=== PATIENT | female | born 1945 | race Caucasian/White ===

== ENCOUNTER → 2022-01-24 11:58 | Outpatient (CLI) | payer MEDICARE, BC, SELFPAY ==
--- NOTE | 2022-01-24 12:01 | DI.RAD.S_ITS ---
PROCEDURE: XR CERVICAL SPINE 2V OR 3V INDICATIONS: neck pain TECHNIQUE: 3 view(s) of the cervical spine were acquired. COMPARISON: None. FINDINGS: Bones: No fractures or dislocations to the C7-T1 level. The lateral masses of C1 appear intact on the odontoid view. No suspicious bony lesions. 4 millimeters anterolisthesis C7 on T1. 2 millimeters retrolisthesis C5 on C6. 2 millimeters anterolisthesis C4 on C5 Likely degenerative. Moderate disc height loss and endplate spurring, multilevel facet degenerative changes also demonstrated. Soft tissues: No prevertebral soft tissue swelling. 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 Dictated by: Roberth Frank M.D. on 01/24/2022 at 20:51 Approved by: Roberth Frank M.D. on 01/24/2022 at 20:58
== END ==
PROVIDERS: PCP Family Medicine; Referring Provider Family Medicine; Visit Provider Family Medicine
DX: S16.1XXA Strain of muscle, fascia and tendon at neck level, initial encounter (principal); M47.812 Spondylosis without myelopathy or radiculopathy, cervical region; X58.XXXA Exposure to other specified factors, initial encounter
CPT/HCPCS: 72040

== ENCOUNTER → 2022-05-04 07:50 | Outpatient (CLI) | payer MEDICARE, BC, SELFPAY ==
[2022-05-04 10:03] LABS: Add Manual Diff / Slide Review NO; Basophils Absolute Auto 100 /uL (0-100); Eosinophils Absolute Auto 100 /uL (0-450); Eosinophils Percent Auto 2.9 % (2-4); Hematocrit 39.8 % (36-46); Hemoglobin 13.3 g/dL (12.0-16.0); Lymphocytes Absolute Auto 1900 /uL (1100-4500); Lymphocytes Percent Auto 37.6 % (25-40); Mean Corpuscular HGB Conc 33.5 % (30-36); Mean Corpuscular Hemoglobin 32.7 PG (26-34); Mean Corpuscular Volume 97.8 fL (80-100); Monocytes Absolute Auto 600 /uL (0-900); Monocytes Percent Auto 12.3 % (3-14); Neutrophils Absolute Auto 2400 /uL (1500-7000); Neutrophils Percent Auto 46.2 % (50-75); Platelet Count 342 X10^3/uL (150-400); Red Blood Cell Count 4.08 X10^6/uL (4.0-5.2); Red Cell Distribution Width 12.6 % (11.6-14.8); White Blood Cell Count 5.1 X10^3/uL (4.5-11.0)
[2022-05-04 10:10] LABS: Alanine Aminotransferase 20 IU/L (<35); Albumin 4.5 g/dL (3.5-5.0); Albumin Globulin Ratio 1.6 (1.0-2.8); Alkaline Phosphatase 84 U/L (38-126); Aspartate Aminotransferase 27 IU/L (14-36); BUN Creatinine Ratio 18.1 (6-22); Bilirubin Total 0.2 mg/dL (0.2-1.3); Blood Urea Nitrogen 15 mg/dL (7-17); Calcium 9.4 mg/dL (8.4-10.2); Carbon Dioxide 28 mmol/L (22-32); Chloride 103 mmol/L (98-107); Cholesterol 216 mg/dL (140-199); Estimated Glomerular Filt Rate > 60 mL/min (>60); Globulin 2.9 g/dL (1.7-4.1); Glucose 88 mg/dL (80-110); HDL Cholesterol 74 mg/dL (40-60); HEMOLYSIS < 15 (0-50); LDL Cholesterol Calculated 76 mg/dL (<100); Magnesium 1.8 mg/dL (1.6-2.3); Potassium 4.8 mmol/L (3.4-5.1); Sodium 138 mmol/L (137-145); Total Protein 7.4 g/dL (6.3-8.2); Triglycerides 330 mg/dL (35-150)
[2022-05-04 10:38] LABS: TSH w/ Reflex to FT4 1.59 uIU/mL (0.47-4.68)
== END ==
PROVIDERS: PCP Family Medicine; Referring Provider Family Medicine; Visit Provider Family Medicine
DX: E78.5 Hyperlipidemia, unspecified (principal); I10 Essential (primary) hypertension
CPT/HCPCS: 36415; 80053; 80061; 83735; 84443; 85025

== ENCOUNTER 2022-09-28 07:28 | Day surgery (SDC) | payer MEDICARE, BC, SELFPAY ==
--- NOTE | 2022-09-28 | PATH_ITS ---
[facility] Accession Number: [id number] No. of containers..01 Tissue . 01 Material submitted: . colon - TRANSVERSE COLON POLYP . 01 Diagnosis: Transverse Colon Polyp, Biopsy: Tubular adenoma. MRV 10/02/2022 1321 Local . 01 Electronically signed: . Aarti Condon MD, Pathologist NPI- [id number] . 01 Gross description: . TRANSVERSE COLON POLYP: Received in formalin is 1 fragment(s) of tarango, soft tissue measuring 0.3 x 0.3 x 0.2 cm submitted entirely in 1 cassette(s) /CPE 09/29/2022 0917 Local . 01 Pathologist provided ICD-10: D12.3 . 01 CPT . 252110 Specimen Comment: A courtesy copy of this report has been sent to [facility] Pathology Performed at: 01 [facility] [address] [place] [address] [id number] MD Matt Griffin MD Phone: [phone]
[2022-09-28 07:49] VITALS: BP 147/81; PULSE 62; RESP 19; TEMP 36.2; O2SAT 99; BMI 27.4
--- NOTE | 2022-09-28 09:00 | P.HP_ITS ---
History of Present Illness History of Present Illness Date Patient Seen: 09/28/22 Time Patient Seen: 09:00 Chief complaint: [facility] – [place] Narrative: Mr. Chen presents today for a colonoscopy. Her grandmother from colon cancer at age 74. She recently moved from [facility] where she had her previous colonoscopy about 5 years ago and polyps were seen. Otherwise the prep has gone well she has no other concerning symptoms and no questions [facility] Medical History Anxiety Cervical strain Colon polyps Epilepsy History of breast cancer Hyperlipidemia Hypertension Spondylolysis of cervical spine Surgical History H/O aortic valve replacement History of breast reconstruction Social History household members: spouse Smoking Status: Former smoker Meds Home Medications and Allergies Home Medications Medication Instructions Recorded Confirmed Type levetiracetam 500 mg tablet 500 mg PO BID 01/19/22 04/19/22 History (Ophelia) methocarbamol 500 mg tablet 500 mg PO TID PRN muscle spasm #20 01/19/22 04/19/22 Rx tabs naproxen 500 mg tablet 500 mg PO BID #30 tabs 01/19/22 09/28/22 Rx atorvastatin 20 mg tablet See Rx Instructions .Route 02/04/22 09/28/22 Rx .COMPLEX #90 tabs sodium,potassium,mag sulfates 17.5 See Rx Instructions PO .COMPLEX 07/09/22 Rx gram-3.13 gram-1.6 gram oral soln #354 mL (Suprep Bowel Prep Kit) amoxicillin 500 mg-potassium 1 tab PO BID #60 tabs 08/22/22 09/28/22 Rx clavulanate 125 mg tablet metoprolol tartrate 25 mg tablet 12.5 mg PO BID #60 tabs 09/03/22 Rx Allergies Allergy/AdvReac Type Severity Reaction Status Date / Time No Known Drug Allergies Allergy Verified 04/19/22 14:10 Exam Vital Signs (past 8 hours): - 09/28/22 07:49 Temperature 97.1 F L Pulse Rate 62 Respiratory Rate 19 Blood Pressure 147/81 H Pulse Oximetry 99 Oxygen Delivery Method Room Air Oxygen Delivery Method Room Air Const General: cooperative, healthy appearing and comfortable Eyes General: appearance normal, both eyes and all related structures Resp Effort & Inspection: normal respiratory effort and able to speak in complete sentences GI Palpation: soft and No tender Assessment & Plan Assessment and plan (1) Colon polyps: Qualifiers: Colon polyp type: unspecified Colon location: unspecified part of colon Qualified Code(s): K63.5 - Polyp of colon Status: Acute (2) Family history of colon cancer: Status: Acute (3) Screening for colon cancer: Status: Acute Assessment & Plan narrative: Presents today for screening colonoscopy I discussed the risks benefits and alternatives including but not limited to perforation of the colon and an incomplete exam she fully understands these risks and would like to proceed.
[2022-09-28 10:03] VITALS: BP 97/63; PULSE 60; RESP 14; TEMP 36.1; O2SAT 96
--- NOTE | 2022-09-28 10:03 | PM.OP.COLON ---
Operative Date/Time/Diagnoses Date of procedure: 09/28/22 Time of procedure: 10:03 Pre-op diagnosis: Family history of colon cancer, history of polyps, and screening for colon cancer Post-op diagnosis: same Procedure & Clinicians Study performed: Colonoscopy and biopsy Same procedure as scheduled: Yes Indications: Family history of colon cancer, history of polyps, screening for colon cancer Surgeon: Kerry Nieto Procedure Notes Procedure in detail: Patient was taken to the endoscopy suite and placed in left lateral decubitus position. Time-out was performed. With the help of anesthesiologist the patient was placed under conscious sedation and maintained throughout the procedure. Digital rectal exam was performed there were no masses or strictures. The colonoscope was then introduced into the anal canal and advanced through to the cecum. Abdominal pressure was required to reach the cecum. A photograph was obtained of the appendiceal orifice. The bowel prep was good [place] bowel prep score of 2. The total withdrawal time was 25 minutes. Three separate polypectomies were performed using biopsy forceps. Each polyp was small. One was seen in the cecal area 1 in the hepatic flexure and 1 in the descending colon. There were a few scattered diverticula in the sigmoid colon photographs were taken of this. The scope was then retroflexed and hemorrhoidal piles were observed. They were within normal limits. Patient tolerated the procedure well and went in good condition to postoperative care unit Findings: divertiulosis and polyp(s) Specimen(s): other (1. Cecal polyp 2. Hepatic flexure polyp 3. Descending polyp) Complications: none Post-procedure Plan for aftercare: Depending on the pathology of the 3 polyps follow-up will be recommended. If all 3 turn machine operator to be tubular adenomas then 3-5 year follow-up would be standard.
--- NOTE | 2022-09-28 10:07 | P.OP.COLON_ITS ---
Operative Date/Time/Diagnoses Date of procedure: 09/28/22 Time of procedure: 10:07 Procedure & Clinicians Indications: CORRECTION Procedure Notes Procedure in detail: Operative Date/Time/Diagnoses Date of procedure: 09/28/22 Time of procedure: 10:03 Pre-op diagnosis: Family history of colon cancer, history of polyps, and screening for colon cancer Post-op diagnosis: same Procedure & Clinicians Study performed: Colonoscopy and biopsy Same procedure as scheduled: Yes Indications: Family history of colon cancer, history of polyps, screening for colon cancer Surgeon: Kerry Nieto Procedure Notes Procedure in detail: Patient was taken to the endoscopy suite and placed in left lateral decubitus position.? Time-out was performed.? With the help of anesthesiologist the patient was placed under conscious sedation and maintained throughout the procedure.? Digital rectal exam was performed there were no masses or strict ures.? The colonoscope was then introduced into the anal canal and advanced through to the cecum.? Abdominal pressure was required to reach the cecum.? A photograph was obtained of the appendiceal orifice.? The bowel prep was good [place] bowel prep score of 2.??The withdrawal time was 27 minutes. One small polyp was seen and removed with the biopsy forceps in the transverse colon. There were a few scattered diverticula in the sigmoid colon. A photograph was obtained of a few diverticula. The scope was withdrawn into the rectum and retroflexed. The hemorrhoidal piles appeared within normal limits,photograph was obtained. Patient tolerated the procedure well and went in good condition to the postoperative care unit Findings: divertiulosis and polyp(s) Specimen(s): other (1. Transverse colon polyp) Complications: none Post-procedure Plan for aftercare: Probably looking at a 5 year follow-up because of the family history of colon cancer.
[2022-09-28 10:08] VITALS: BP 101/61; PULSE 59; RESP 12; O2SAT 95
[2022-09-28 10:13] VITALS: BP 113/69; PULSE 60; RESP 12; O2SAT 100
[2022-09-28 10:17] VITALS: BP 121/75; PULSE 60; RESP 13; O2SAT 100
[2022-09-28 10:33] VITALS: BP 130/79; PULSE 60; RESP 13; TEMP 36.6; O2SAT 100
== END 2022-09-28 10:40 | disposition home or self-care (01) ==
PROVIDERS: PCP Family Medicine; Referring Provider Surgery; Visit Provider Surgery
PROC: 0DJD8ZZ Inspection of Lower Intestinal Tract, Via Natural or Artificial Opening Endoscopic (ICD-10-PCS; CPT 45378; principal; 2022-09-28 08:30)
DX: Z12.11 Encounter for screening for malignant neoplasm of colon (principal); Z86.010 Personal history of colon polyps; K57.30 Diverticulosis of large intestine without perforation or abscess without bleeding; D12.3 Benign neoplasm of transverse colon
CPT/HCPCS: 45380; J2704; J3010

== ENCOUNTER 2022-10-24 15:01 | Observation (INO) | payer MEDICARE, BC, SELFPAY ==
[2022-10-24] VITALS (22 sets, daily range): BP systolic 116–166; BP diastolic 62–84; PULSE 60–73; RESP 14–33; TEMP 35.6–36.2; O2SAT 95–100; BMI 25.7
--- NOTE | 2022-10-24 15:08 | DI.CT.S_ITS ---
PROCEDURE: CT STROKE INDICATIONS: left side weak TECHNIQUE: Noncontrast 4.5 mm thick angled axial sections acquired from the foramen magnum to the vertex, with coronal reformats. For radiation dose reduction, the following was used: automated exposure control, adjustment of mA and/or kV according to patient size. COMPARISON: None. FINDINGS: Image quality: Excellent. CSF spaces: Basal cisterns are patent. No extra-axial fluid collections. Ventricles are normal in size and shape. Brain: No midline shift. No intracranial masses or hemorrhage. Ricks-white matter interface is normal. Skull and face: Calvarium and visualized facial bones are intact, without suspicious lesions. Sinuses: Visualized sinuses and mastoids are clear. IMPRESSION: No acute intracranial pathology. This study fulfills neurological imaging criteria for inclusion or exclusion of acute stroke therapies based on available published neurological imaging guidelines. Dictated by: Ranjit Pillai M.D. on 10/24/2022 at 15:44 Approved by: Ranjit Pillai M.D. on 10/24/2022 at 15:46
--- NOTE | 2022-10-24 15:09 | DI.CT.S_ITS ---
PROCEDURE: CT ANGIO HEAD AND NECK INDICATIONS: left side weak TECHNIQUE: After the administration of intravenous contrast, 1 mm thick sections acquired from the aortic arch through the [place]. Post-contrast 4.5 mm thick sections then re-acquired from the foramen magnum to the vertex. 3-dimensional bibykrz-bmuwduqtc-lrcfncoklr (MIP) and/or volume rendering reformats were acquired of the central intracranial vasculature and neck separately. For radiation dose reduction, the following was used: automated exposure control, adjustment of mA and/or kV according to patient size. COMPARISON: None. FINDINGS: Image quality: Excellent. BRAIN: CSF spaces: Ventricles are normal in size and shape. Basal cisterns are patent. No extra-axial fluid collections. Brain: No midline shift. No intracranial bleeds or masses. Ricks-white matter interface appears intact. Skull and face: Calvarium and facial bones appear intact, without suspicious lesions. Orbits appear normal. Sinuses: Sinuses and mastoids are clear. HEAD CT ANGIOGRAPHY: Anterior circulation: Intracranial internal carotid arteries are normal in size and flow. The flow within the paired anterior cerebral arteries is normal and symmetric. The flow within the middle cerebral arteries is normal and symmetric. The anterior communicating artery is seen. No aneurysms are seen. Posterior circulation: Visualized portions of the vertebral arteries demonstrate normal caliber, and join to form a normal appearing basilar artery. Flow within the posterior cerebral arteries is normal and symmetric. No aneurysms are seen. NECK CT ANGIOGRAPHY: Carotid system: The great vessels demonstrate a conventional anatomy as they arise from the aortic arch. The origins of the common carotid arteries appear patent. The common carotid arteries demonstrate normal caliber and courses. The bifurcation regions are both widely patent. The internal carotid arteries demonstrate normal calibers and courses. Posterior circulation: The origins of the vertebral arteries both appear widely patent. The more superior extracranial portions of both vertebral arteries also demonstrate normal courses and calibers. They join to form a normal appearing basilar artery. Soft tissues: Visualized neck soft tissues demonstrate no suspicious abnormalities. Prior aortic arch repair. Mosaic attenuation of the lungs, suggestive of air trapping. Bones: No suspicious bony lesions. Visualized cervical spine appears normally aligned. IMPRESSION: No evidence of the acute ischemic infarct. Any quantitative measurements of stenosis were performed using NASCET criteria. Dictated by: Ranjit Pillai M.D. on 10/24/2022 at 15:47 Approved by: Ranjit Pillai M.D. on 10/24/2022 at 15:51
[2022-10-24 15:25] LABS: Add Manual Diff / Slide Review NO; Basophils Absolute Auto 100 /uL (0-100); Basophils Percent Auto 1.4 % (0-2); Eosinophils Absolute Auto 200 /uL (0-450); Eosinophils Percent Auto 2.6 % (2-4); Hematocrit 35.1 % (36-46); Hemoglobin 12.2 g/dL (12.0-16.0); Lymphocytes Absolute Auto 2900 /uL (1100-4500); Lymphocytes Percent Auto 41.1 % (25-40); Mean Corpuscular HGB Conc 34.8 % (30-36); Mean Corpuscular Hemoglobin 33.3 PG (26-34); Mean Corpuscular Volume 95.8 fL (80-100); Monocytes Absolute Auto 800 /uL (0-900); Monocytes Percent Auto 11.3 % (3-14); Neutrophils Absolute Auto 3100 /uL (1500-7000); Neutrophils Percent Auto 43.6 % (50-75); Platelet Count 315 X10^3/uL (150-400); Red Blood Cell Count 3.66 X10^6/uL (4.0-5.2); Red Cell Distribution Width 12.6 % (11.6-14.8)
[2022-10-24 15:32] LABS: Prothrombin Time 11.5 SECONDS (10.1-12.7)
[2022-10-24 15:34] LABS: PTT Partial Thromboplastin Tim 36 SECONDS (26-36)
[2022-10-24 15:36] LABS: Alanine Aminotransferase 24 IU/L (<35); Albumin 4.3 g/dL (3.5-5.0); Albumin Globulin Ratio 1.5 (1.0-2.8); Alkaline Phosphatase 77 U/L (38-126); Aspartate Aminotransferase 30 IU/L (14-36); Bilirubin Total 0.4 mg/dL (0.2-1.3); Blood Urea Nitrogen 18 mg/dL (7-17); Calcium 9.6 mg/dL (8.4-10.2); Carbon Dioxide 25 mmol/L (22-32); Chloride 99 mmol/L (98-107); Creatine Kinase 209 U/L (30-135); Estimated Glomerular Filt Rate 55 mL/min (>60); Globulin 2.8 g/dL (1.7-4.1); Glucose 109 mg/dL (80-110); HEMOLYSIS < 15 (0-50); Potassium 4.4 mmol/L (3.4-5.1); Sodium 133 mmol/L (137-145); Total Protein 7.1 g/dL (6.3-8.2)
--- NOTE | 2022-10-24 15:36 | ED.NEUROSD ---
HPI - Neuro Symptoms/Deficit General Chief Complaint: Neuro Symptoms/Deficit Stated Complaint: facial droop, thinks stroke Time Seen by Provider: 10/24/22 15:08 History of Present Illness HPI Narrative: Code stroke called at 3:05 p.m.. Last well known 2:45 p.m. today. Patient brought in by for left-sided weakness slurred speech and expressive aphasia. Patient brought immediately to the CT scan from triage. My initial evaluation in the CAT scan department did show left arm weakness and left leg weakness. Patient did have effort with lifting each limb on the left but could not bring completely into the air. However when patient was transferred from CT scan to her room, formal evaluation and NIH score improved markedly. Patient denies any headache. 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 Is not on blood thinners. Again, patient improving significantly. Tele stroke with [facility] initiated. On Anticoagulants: Yes Related Data Home Medications Medication Instructions Recorded Confirmed levetiracetam 500 mg tablet 500 mg PO BID 01/19/22 10/24/22 (Ophelia) Adult Low Dose Aspirin 81 mg PO DAILY 10/24/22 10/24/22 Fish Oil 2,400 mg PO DAILY 10/24/22 10/24/22 Metamucil See Rx Instructions .Route .COMPLEX 10/24/22 10/24/22 Stool Softener (docusate pipo) 1 tab PO DAILY 10/24/22 10/24/22 Tums 500 2 tab PO DAILY PRN Heartburn 10/24/22 10/24/22 Vitamin D3 1 tab PO DAILY 10/24/22 10/24/22 Previous Rx's Medication Instructions Recorded methocarbamol 500 mg tablet 500 mg PO TID PRN muscle spasm #20 01/19/22 tabs naproxen 500 mg tablet 500 mg PO BID #30 tabs 01/19/22 atorvastatin 20 mg tablet See Rx Instructions .Route 02/04/22 .COMPLEX #90 tabs amoxicillin 500 mg-potassium 1 tab PO BID #60 tabs 08/22/22 clavulanate 125 mg tablet metoprolol tartrate 25 mg tablet 12.5 mg PO BID #90 tabs 10/23/22 Allergies Allergy/AdvReac Type Severity Reaction Status Date / Time No Known Drug Allergies Allergy Verified 04/19/22 14:10 Review of Systems Review of Systems Narrative: GENERAL: negative chills, fatigue, malaise, fever, sweats. HEENT: negative sinus pain, ear pain, sore throat RESPIRATORY: negative dyspnea, cough CARDIOVASCULAR: negative chest pain, palpitations GASTROINTESTINAL: negative nausea, vomiting, abdominal pain : negative dysuria, frequency, hematuria MUSCULOSKELETAL: negative muscle or bony pain SKIN: negative rash, skin lesions NEUROLOGIC: Positive slurred speech and weakness, numbness ROS Unobtainable: All systems reviewed & are unremarkable except as noted in HPI and below Hematologic/Lymphatic On Anticoagulants: Yes Patient History Medical History Anxiety Cervical strain Colon polyps Epilepsy History of breast cancer Hyperlipidemia Hypertension Spondylolysis of cervical spine Surgical History H/O aortic valve replacement History of breast reconstruction Social History household members: spouse Smoking Status: Former smoker alcohol intake: current Smoking Status: Former smoker alcohol intake frequency: 3 or more drinks per day Substance Use Type: does not use Exam Narrative Exam Narrative: GENERAL: in no distress, not toxic not dyspneic HEAD: Normocephalic. EYES: Pupils equal round ENT: Mucous membranes moist. NECK: Trachea midline. CARDIOVASCULAR: Regular rate and rhythm without murmurs RESPIRATORY: Clear to auscultation. Breath sounds equal bilaterally. No wheezes, rales, or rhonchi. GASTROINTESTINAL: Abdomen soft, non-tender EXTREMITIES: No gross deformities. BACK: No flank tenderness. NEURO: AOx4. Patient's symptoms have improved markedly since arrival. Negative pronator drift, no facial droop, has clear speech. 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 [id number] sdlv-[id number] intact bilaterally. Able to lift each arm and leg up in the air and hold for 10 seconds without falling. Light touch intact to bilateral face hands and legs but on the left side she states feels a little numb but sensation intact otherwise SKIN: Warm and dry PSYCH: Not anxious, is cooperative Initial Vital Signs Initial Vital Signs: Vital Signs Pulse Rate 73 10/24/22 15:22 Blood Pressure 166/84 H 10/24/22 15:22 Pulse Oximetry 99 10/24/22 15:22 Scores NIH Stroke Scale Level of Conciousness: Alert, keenly responsive Ask month/age: Answers both questions correctly. Open/close eyes, close hand: Performs both tasks correctly Best gaze horizontal: Normal Visual sellers: No visual loss Facial palsy: Normal symetrical movement Left arm drift: No drift for full 10 sec Right arm drift: No drift for full 10 sec Left leg drift: No drift for full 5 sec Right leg drift: No drift for full 5 sec Limb ataxia: Absent Sensory on face/arms/legs: Normal, no sensory loss Best language: No aphasia, normal Dysarthria: Normal Extinction or inattention: No abnormality Total NIH Stroke scale score: 0 Citation:: [id number] and [id number] intact bilaterally Course Orders Ordered: Discontinued Medications Acetaminophen (Acetaminophen 325 Mg Tablet) 650 mg PO Q6H PRN PRN Reason: Fever/Mild Pain (1-3) Aspirin (Aspirin Ec 81 Mg Tablet) 81 mg PO DAILY [facility] Last Admin: 10/26/22 09:06 Dose: 81 mg Documented By: Admin: 10/25/22 10:10 Dose: 81 mg Documented By: Admin: 10/24/22 18:19 Dose: 81 mg Documented By: DANIELLA Atorvastatin Calcium (Atorvastatin 20 Mg Tablet) 20 mg PO BEDTIME [facility] Atorvastatin Calcium (Atorvastatin 20 Mg Tablet) 80 mg PO BEDTIME [facility] Last Admin: 10/25/22 21:05 Dose: 80 mg Documented By: Admin: 10/24/22 21:04 Dose: 80 mg Documented By: MARTA Calcium Carbonate (Calcium Carbonate 500 Mg Tab) 1,000 mg PO DAILY [facility] Last Admin: 10/26/22 09:06 Dose: 1,000 mg Documented By: Admin: 10/25/22 14:50 Dose: 1,000 mg Documented By: BRENDA Clopidogrel Bisulfate (Clopidogrel 75 Mg Tablet) 75 mg PO DAILY [facility] Stop: 11/14/22 16:49 Last Admin: 10/26/22 09:09 Dose: 75 mg Documented By: Admin: 10/25/22 10:10 Dose: 75 mg Documented By: Admin: 10/24/22 18:19 Dose: 75 mg Documented By: DANIELLA Docusate Sodium (Docusate 100 Mg Capsule) 100 mg PO BEDTIME [facility] Last Admin: 10/25/22 21:06 Dose: 100 mg Documented By: TRE Enoxaparin Sodium (Enoxaparin 40 Mg/0.4 Ml Syringe) 40 mg SUBCUT DAILY [facility] Last Admin: 10/26/22 09:05 Dose: 40 mg Documented By: Admin: 10/25/22 10:10 Dose: 40 mg Documented By: Admin: 10/24/22 18:19 Dose: 40 mg Documented By: DANIELLA Fish Oil (Fish Oil 1,000 Mg Capsule) 1,000 mg PO BID [facility] Last Admin: 10/26/22 09:08 Dose: 1,000 mg Documented By: Admin: 10/25/22 21:06 Dose: 1,000 mg Documented By: TRE Labetalol HCl (Labetalol 20 Mg/4 Ml Syringe) 10 mg IV Q5MIN PRN PRN Reason: SBP >220 or DBP >110 Levetiracetam (Levetiracetam 250 Mg Tablet) 500 mg PO BID [facility] Last Admin: 10/26/22 09:06 Dose: 500 mg Documented By: Admin: 10/25/22 21:06 Dose: 500 mg Documented By: Admin: 10/25/22 10:10 Dose: 500 mg Documented By: Admin: 10/24/22 21:04 Dose: 500 mg Documented By: MARTA Melatonin (Melatonin 3 Mg Tablet) 6 mg PO BEDTIME PRN PRN Reason: Insomnia Methocarbamol (Methocarbamol 500 Mg Tablet) 500 mg PO TID PRN PRN Reason: muscle spasm Metoprolol Tartrate (Metoprolol Ir 25 Mg Tablet) 12.5 mg PO BID [facility] Last Admin: 10/26/22 09:06 Dose: 12.5 mg Documented By: Admin: 10/25/22 21:06 Dose: 12.5 mg Documented By: TRE Naloxone HCl (Naloxone 0.4 Mg/Ml Vial) 0.2 mg IV Q2MIN PRN PRN Reason: Opiate Reversal Polyethylene Glycol (Polyethylene Glycol 3350 17 Gm Powd.Pack) 17 gm PO DAILY PRN PRN Reason: Constipation Psyllium Hydrophilic Mucilloid (Psyllium Husk 1 Packet) 1 packet PO DAILY [facility] Last Admin: 10/26/22 09:08 Dose: 1 packet Documented By: Admin: 10/25/22 14:50 Dose: 1 packet Documented By: BRENDA Sennosides (Sennosides 8.6 Mg Tablet) 8.6 mg PO BID PRN PRN Reason: Constipation Vitamin D (Cholecalciferol (Vitamin D3) 1,000 Unit Tablet) 1,000 unit PO DAILY [facility] Last Admin: 10/26/22 09:08 Dose: 1,000 unit Documented By: Admin: 10/25/22 14:50 Dose: 1,000 unit Documented By: BRENDA Vital Signs Vital signs: Vital Signs - 8 hr 10/24/22 15:22 10/24/22 15:22 10/24/22 15:30 Pulse Rate 73 68 Respiratory Rate 19 Blood Pressure 166/84 H Pulse Oximetry 99 97 10/24/22 15:32 10/24/22 15:32 10/24/22 15:35 Pulse Rate 70 Respiratory Rate 22 Blood Pressure 133/73 133/82 Pulse Oximetry 98 10/24/22 15:35 10/24/22 15:40 10/24/22 15:40 Pulse Rate 65 63 Respiratory Rate 25 H 26 H Blood Pressure 131/71 Pulse Oximetry 98 97 10/24/22 15:45 10/24/22 15:45 10/24/22 15:50 Pulse Rate 60 Respiratory Rate 18 Blood Pressure 133/79 134/79 Pulse Oximetry 99 10/24/22 15:50 10/24/22 15:55 10/24/22 15:55 Pulse Rate 60 60 Respiratory Rate 23 18 Blood Pressure 139/79 Pulse Oximetry 98 98 10/24/22 16:00 10/24/22 16:00 10/24/22 16:05 Pulse Rate 60 Respiratory Rate 27 H Blood Pressure 141/77 H 143/73 H Pulse Oximetry 99 10/24/22 16:05 10/24/22 16:10 10/24/22 16:10 Pulse Rate 60 60 Respiratory Rate 33 H 25 H Blood Pressure 116/62 Pulse Oximetry 98 100 10/24/22 16:15 10/24/22 16:15 10/24/22 16:20 Pulse Rate 60 Respiratory Rate 24 Blood Pressure 122/71 140/77 Pulse Oximetry 97 10/24/22 16:20 10/24/22 16:25 10/24/22 16:25 Pulse Rate 60 60 Respiratory Rate 22 17 Blood Pressure 142/77 H Pulse Oximetry 98 98 10/24/22 16:30 10/24/22 16:30 10/24/22 16:35 Pulse Rate 60 Respiratory Rate 14 Blood Pressure 144/76 H 138/71 Pulse Oximetry 96 10/24/22 16:35 Pulse Rate 60 Respiratory Rate 18 Blood Pressure Pulse Oximetry 95 MDM - Neuro Symptoms/Deficit Lab Data 10/26/22 05:36 10/26/22 05:36 Labs: Lab Results 10/24/22 10/24/22 10/24/22 Range/Units 15:12 15:12 15:12 WBC 7.0 (4.5-11.0) X10^3/uL RBC 3.66 L (4.0-5.2) X10^6/uL Hgb 12.2 (12.0-16.0) g/dL Hct 35.1 L (36-46) % MCV 95.8 (80-100) fL MCH 33.3 (26-34) PG MCHC 34.8 (30-36) % RDW 12.6 (11.6-14.8) % Plt Count 315 (150-400) X10^3/uL Neut % (Auto) 43.6 L (50-75) % Lymph % (Auto) 41.1 H (25-40) % [place] % (Auto) 11.3 (3-14) % Eos % (Auto) 2.6 (2-4) % Baso % (Auto) 1.4 (0-2) % Neut # (Auto) 3100 (2265-2418) /uL Lymph # (Auto) 2900 (2837-5268) /uL [place] # (Auto) 800 (0-900) /uL Eos # (Auto) 200 (0-450) /uL Baso # (Auto) 100 (0-100) /uL PT 11.5 (10.1-12.7) SECONDS INR 1.0 (0.9-1.3) APTT 36 (26-36) SECONDS Sodium 133 L (137-145) mmol/L Potassium 4.4 (3.4-5.1) mmol/L Chloride 99 (98-107) mmol/L Carbon Dioxide 25 (22-32) mmol/L BUN 18 H (7-17) mg/dL Creatinine 1.06 H (0.52-1.04) mg/dL Estimated GFR 55 L (>60) mL/min BUN/Creatinine Ratio 17.0 (6-22) Glucose 109 (80-110) mg/dL Hgb A1c (Ref Lab) (4.8-5.6) % Calcium 9.6 (8.4-10.2) mg/dL Magnesium (1.6-2.3) mg/dL Total Bilirubin 0.4 (0.2-1.3) mg/dL AST 30 (14-36) IU/L ALT 24 (<35) IU/L Alkaline Phosphatase 77 (38-126) U/L Total Creatine Kinase 209 H (30-135) U/L CK-MB (CK-2) 1.29 (<2.37) ng/mL CK-MB (CK-2) Rel Index 0.6 L (1.5-5.0) % Troponin I 0.025 (0.01-0.034) ng/mL Total Protein 7.1 (6.3-8.2) g/dL Albumin 4.3 (3.5-5.0) g/dL Globulin 2.8 (1.7-4.1) g/dL Albumin/Globulin Ratio 1.5 (1.0-2.8) Triglycerides (35-150) mg/dL Cholesterol (140-199) mg/dL LDL Cholesterol, Calc (<100) mg/dL HDL Cholesterol (40-60) mg/dL TSH (0.47-4.68) uIU/mL SARS-CoV-2 (PCR) (Negative) 10/24/22 10/24/22 10/24/22 Range/Units 15:12 15:12 15:12 WBC (4.5-11.0) X10^3/uL RBC (4.0-5.2) X10^6/uL Hgb (12.0-16.0) g/dL Hct (36-46) % MCV (80-100) fL MCH (26-34) PG MCHC (30-36) % RDW (11.6-14.8) % Plt Count (150-400) X10^3/uL Neut % (Auto) (50-75) % Lymph % (Auto) (25-40) % [place] % (Auto) (3-14) % Eos % (Auto) (2-4) % Baso % (Auto) (0-2) % Neut # (Auto) (3331-3742) /uL Lymph # (Auto) (7156-7429) /uL [place] # (Auto) (0-900) /uL Eos # (Auto) (0-450) /uL Baso # (Auto) (0-100) /uL PT (10.1-12.7) SECONDS INR (0.9-1.3) APTT (26-36) SECONDS Sodium (137-145) mmol/L Potassium (3.4-5.1) mmol/L Chloride (98-107) mmol/L Carbon Dioxide (22-32) mmol/L BUN (7-17) mg/dL Creatinine (0.52-1.04) mg/dL Estimated GFR (>60) mL/min BUN/Creatinine Ratio (6-22) Glucose (80-110) mg/dL Hgb A1c (Ref Lab) (4.8-5.6) % Calcium (8.4-10.2) mg/dL Magnesium 1.8 (1.6-2.3) mg/dL Total Bilirubin (0.2-1.3) mg/dL AST (14-36) IU/L ALT (<35) IU/L Alkaline Phosphatase (38-126) U/L Total Creatine Kinase (30-135) U/L CK-MB (CK-2) (<2.37) ng/mL CK-MB (CK-2) Rel Index (1.5-5.0) % Troponin I (0.01-0.034) ng/mL Total Protein (6.3-8.2) g/dL Albumin (3.5-5.0) g/dL Globulin (1.7-4.1) g/dL Albumin/Globulin Ratio (1.0-2.8) Triglycerides 185 H (35-150) mg/dL Cholesterol 194 (140-199) mg/dL LDL Cholesterol, Calc 78 (<100) mg/dL HDL Cholesterol 79 H (40-60) mg/dL TSH 1.46 (0.47-4.68) uIU/mL SARS-CoV-2 (PCR) (Negative) 10/24/22 10/24/22 Range/Units 15:12 15:39 WBC (4.5-11.0) X10^3/uL RBC (4.0-5.2) X10^6/uL Hgb (12.0-16.0) g/dL Hct (36-46) % MCV (80-100) fL MCH (26-34) PG MCHC (30-36) % RDW (11.6-14.8) % Plt Count (150-400) X10^3/uL Neut % (Auto) (50-75) % Lymph % (Auto) (25-40) % [place] % (Auto) (3-14) % Eos % (Auto) (2-4) % Baso % (Auto) (0-2) % Neut # (Auto) (1989-5888) /uL Lymph # (Auto) (8854-7709) /uL [place] # (Auto) (0-900) /uL Eos # (Auto) (0-450) /uL Baso # (Auto) (0-100) /uL PT (10.1-12.7) SECONDS INR (0.9-1.3) APTT (26-36) SECONDS Sodium (137-145) mmol/L Potassium (3.4-5.1) mmol/L Chloride (98-107) mmol/L Carbon Dioxide (22-32) mmol/L BUN (7-17) mg/dL Creatinine (0.52-1.04) mg/dL Estimated GFR (>60) mL/min BUN/Creatinine Ratio (6-22) Glucose (80-110) mg/dL Hgb A1c (Ref Lab) 5.5 (4.8-5.6) % Calcium (8.4-10.2) mg/dL Magnesium (1.6-2.3) mg/dL Total Bilirubin (0.2-1.3) mg/dL AST (14-36) IU/L ALT (<35) IU/L Alkaline Phosphatase (38-126) U/L Total Creatine Kinase (30-135) U/L CK-MB (CK-2) (<2.37) ng/mL CK-MB (CK-2) Rel Index (1.5-5.0) % Troponin I (0.01-0.034) ng/mL Total Protein (6.3-8.2) g/dL Albumin (3.5-5.0) g/dL Globulin (1.7-4.1) g/dL Albumin/Globulin Ratio (1.0-2.8) Triglycerides (35-150) mg/dL Cholesterol (140-199) mg/dL LDL Cholesterol, Calc (<100) mg/dL HDL Cholesterol (40-60) mg/dL TSH (0.47-4.68) uIU/mL SARS-CoV-2 (PCR) Negative (Negative) Imaging Data CT scan - head: Radiologist's Impression: FINDINGS:? Image quality:? Excellent.? ? CSF spaces:? Basal cisterns are patent.? No extra-axial fluid collections.? Ventricles are normal in size and shape.? ? Brain:? No midline shift.? No intracranial masses or hemorrhage.? Ricks-white matter interface is normal.? ? Skull and face:? Calvarium and visualized facial bones are intact, without suspicious lesions.? ? Sinuses:? Visualized sinuses and mastoids are clear.? ? IMPRESSION:? No acute intracranial pathology.? ? This study fulfills neurological imaging criteria for inclusion or exclusion of acute stroke therapies based on available published neurological imaging guidelines.? CTA - brain/neck: Radiologist's Impression: BRAIN:? CSF spaces:? Ventricles are normal in size and shape.? Basal cisterns are patent.? No extra-axial fluid collections.? ? Brain:? No midline shift.? No intracranial bleeds or masses.? Ricks-white matter interface appears intact.? ? Skull and face:? Calvarium and facial bones appear intact, without suspicious lesions.? Orbits appear normal.? ? Sinuses:? Sinuses and mastoids are clear.? ? HEAD CT ANGIOGRAPHY:? Anterior circulation:? Intracranial internal carotid arteries are normal in size and flow.? The flow within the paired anterior cerebral arteries is normal and symmetric.? The flow within the middle cerebral arteries is normal and symmetric.? The anterior communicating artery is seen.? No aneurysms are seen.? ? Posterior circulation:? Visualized portions of the vertebral arteries demonstrate normal caliber, and join to form a normal appearing basilar artery.? Flow within the posterior cerebral arteries is normal and symmetric.? No aneurysms are seen.? ? NECK CT ANGIOGRAPHY:? Carotid system:? The great vessels demonstrate a conventional anatomy as they arise from the aortic arch.? The origins of the common carotid arteries appear patent.? The common carotid arteries demonstrate normal caliber and courses.? The bifurcation regions are both widely patent.? The internal carotid arteries demonstrate normal calibers and courses.? ? Posterior circulation:? The origins of the vertebral arteries both appear widely patent.? The more superior extracranial portions of both vertebral arteries also demonstrate normal courses and calibers.? They join to form a normal appearing basilar artery.? ? Soft tissues:? Visualized neck soft tissues demonstrate no suspicious abnormalities.? Prior aortic arch repair.? Mosaic attenuation of the lungs, suggestive of air trapping. ? Bones:? No suspicious bony lesions.? Visualized cervical spine appears normally aligned.? IMPRESSION:? No evidence of the acute ischemic infarct. ? Any quantitative measurements of stenosis were performed using NASCET criteria.? ? ? Dictated by: Ranjit Pillai M.D. on 10/24/2022 at 15:47 ? ? Approved by: Ranjit Pillai M.D. on 10/24/2022 at 15:51 ? MDM Narrative Medical decision making narrative: Code stroke called at 3:05 p.m.. Last well known 2:45 p.m. today. Patient brought in by for left-sided weakness slurred speech and expressive aphasia. Patient brought immediately to the CT scan from triage. My initial evaluation in the CAT scan department did show left arm weakness and left leg weakness. Patient did have effort with lifting each limb on the left but could not bring completely into the air. However when patient was transferred from CT scan to her room, formal evaluation and NIH score improved markedly. Patient denies any headache. 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 Is not on blood thinners. Again, patient improving significantly. Tele stroke with [facility] initiated. After history and exam CBC CMP EKG troponin CT angiogram head and neck CT brain normal saline [facility] CC: Left side weakness slurred speech Complicating co-morbidities: Hypertension Data collected from: pt and Medical records reviewed: not seen here for this complaint Differential considered: Includes but not limited to Exam documented above, pertinent findings include: Resolved stroke symptoms Lab Test results independently reviewed as above. Pertinent findings: Hemoglobin 12 hematocrit 35 BUN 18 creatinine 1.06 GFR 55 AST 30 ALT 24 Independently reviewed EKG as above atrial sensed ventricular paced Imaging studies independently reviewed: CT brain/CT angiogram head and neck no acute process Consultations: 3:28 p.m.. Spoke with [facility] tele stroke, Dr. Guerra. He has review CT scan imaging, brain CT without contrast. Nothing acute. However patient's symptoms have essentially improved/nearly resolved. No tPA indicated this time. Recommends admission for balance of workup and observation. Start dual anti-platelet therapy. 3:46 p.m.. Spoke with radiologist, CT head without contrast and angiogram no acute process 4:[address] Dhillon, hospitalist, he will admit patient. Treatments: Normal saline Re-evaluations: 3:50 p.m.. Patient symptoms have resolved. Reviewed with patient and family and , they agree and understand for admission for balance of workup for likely TIA. Discussion: Appropriate for admission for balance of workup for TIA. Patient can not have MRI because of pacemaker. However needs observation for 24 hours and start dual anti-platelet therapy. Diagnosis: TIA Discharge Plan Departure Patient Disposition: Admitted as Observation Clinical Impression: Transient cerebral ischemia Admit Date/Time: 10/24/22 16:38 Admit Provider: Artis Dhillon
--- NOTE | 2022-10-24 15:42 | PC.NURSE ---
called by registration to help patient out of car. states i think my is having a stroke. she is having troubles working her left leg and arm. patient was unable to life her leg to get it out the car door. pt had to lift her left arm with her right. left arm continued to drop over side of wheelchair. pt brought back to CT immediately after calling code stroke. by the time patient came into room from CT scan, pt was able to lift arms and legs and has some control of left side of body.
[2022-10-24 15:48] LABS: Troponin I 0.025 ng/mL (0.01-0.034)
[2022-10-24 15:51] LABS: CKMB % Relative Index 0.6 % (1.5-5.0); Creatine Kinase MB 1.29 ng/mL (<2.37)
[2022-10-24 16:21] LABS: COVID19 -Nasal RAPID Negative (Negative)
--- NOTE | 2022-10-24 16:45 | DI.ECHO.S_ITS ---
[facility]---------+ [facility] +---------+ : : [address] [place] [address] : : : : [id number] : : : : Phone: [phone] Echocardiogram Report + + :Name: APOLINAR GUILLAUME Study Date: 10/25/2022 Height: 63 in : :[facility] ReadingLocation: Weight: 152 lb : : Gender: Female BSA: 1.7 m2 : :: 1945 Age: 77 yrs BP: 127/65 mmHg: :Reason For Study: TRANSIENT ISCHEMIC ATTACK HR: 60 : :Ordering Physician: BERNARD, : :DEB Pedersen Performed By: ONEYDA WELLS : :Referring: DEB WAGNER : + + Interpretation Summary The study quality was technically difficult. The ejection fraction is estimated to be 50-55%. There is apical hypokinesis. Injection of contrast documented no interatrial shunt. There is moderate biatrial enlargement. There is mild to moderate mitral regurgitation. There is moderate tricuspid regurgitation. The right ventricular systolic pressure is estimated to be at least 32 mmHg based on an estimated right atrial pressure of 3 mm Hg. Procedure: A two-dimensional transthoracic echocardiogram with color flow and Doppler was performed. The study quality was technically difficult. There is no prior echocardiogram noted for this patient. The patient has a paced rhythm. Left Ventricle: The left ventricular cavity is small. Left ventricular systolic function is normal. The ejection fraction is estimated to be 50-55%. There is apical hypokinesis. Right Ventricle: The right ventricle is normal in size and function. Atria: The left atrium is moderately dilated. There is moderate biatrial enlargement. The right atrium is moderately dilated. Injection of contrast documented no interatrial shunt. Mitral Valve: Calcified mitral apparatus. There is mild to moderate mitral regurgitation. Aortic Valve: The aortic valve is not well visualized. There is a bioprosthetic aortic valve. There is no aortic valve stenosis. No aortic regurgitation is present. Tricuspid Valve: The tricuspid valve is normal in structure and function. There is moderate tricuspid regurgitation. The right ventricular systolic pressure is estimated to be at least 32 mmHg based on an estimated right atrial pressure of 3 mm Hg. Pulmonic Valve: The pulmonic valve is not well visualized. Great Vessels: The aortic root is not well visualized. The ascending aorta could not be visualized. The IVC is of normal diameter and collapses greater than 50% with a sniff. This suggests a low right atrial pressure of 3 mm Hg. Pericardium/ Pleura There is no pericardial effusion. There is no pleural effusion. MMode/2D Measurements & Calculations LA A2 area: 22.5 cm2 RA long axis: 5.3 cm LA A4 area: 24.7 cm2 RA area: 20.6 cm2 LA length (vol): 6.8 cm RA vol: 68.3 ml LA vol: 69.0 ml RA : 39.7 ml/m2 LA vol index: 40.1 ml/m2 TAPSE: 1.7 cm Doppler Measurements & Calculations Ao V2 max: 197.8 cm/sec LVOT Max Kashif: 113.8 cm/sec Ao V2 mean: 155.4 cm/sec LV V1 max P.2 mmHg Ao max P.7 mmHg LV V1 VTI: 27.9 cm Ao mean P.0 mmHg sev ratio: 0.58 Ao V2 VTI: 48.1 cm MV E max kashif: 119.0 cm/sec TR max kashif: 268.4 cm/sec MV A max kashif: 147.6 cm/sec TR max P.8 mmHg MV E/A: 0.81 Med Peak E' Kashif: 3.6 cm/sec E/E' med: 33.4 Lat Peak E' Kashif: 5.0 cm/sec E/E' lat: 23.7 E/e' average: 28.5 MV dec time: 0.38 sec MV V2 mean: 94.2 cm/sec MV mean P.9 mmHg MV V2 VTI: 43.4 cm Reading Physician:12:23 PM
--- NOTE | 2022-10-24 16:53 | PM.HP.1 ---
History of Present Illness History of Present Illness Date Patient Seen: 10/24/22 Time Patient Seen: 18:00 Chief complaint: facial droop, thinks stroke Narrative: Aundrea Dunham is a 77yo F with PMH of epilepsy on keppra, aortic valve replacement in 2010, HTN, HLD, and anxiety who presents with possible stroke. Patient states she was out walking with her and had sudden-onset left foot numbness and tingling with weakness and foot drop which progressively worsened. On the drive to the ED her left arm then began to feel numb and weak. No facial droop. Her symptoms then seemed to mostly resolve in the ED, but she still has some coordination difficulty in her left arm and leg. Her also says her speech is slightly dysarthric. She denies current weakness in her left arm or leg. She is hard of hearing. She is followed by outpatient neurologist Dr. Cabello for her history of seizures. Denies CP, SOB, NV, abd pain, dizziness or difficulty swallowing. [facility] Medical History Anxiety Cervical strain Colon polyps Epilepsy History of breast cancer Hyperlipidemia Hypertension Spondylolysis of cervical spine Surgical History H/O aortic valve replacement History of breast reconstruction Social History household members: spouse Smoking Status: Former smoker alcohol intake: current Meds Home Medications and Allergies Home Medications Medication Instructions Recorded Confirmed Type levetiracetam 500 mg tablet 500 mg PO BID 01/19/22 10/24/22 History () methocarbamol 500 mg tablet 500 mg PO TID PRN muscle spasm #20 01/19/22 10/24/22 Rx tabs naproxen 500 mg tablet 500 mg PO BID #30 tabs 01/19/22 10/24/22 Rx atorvastatin 20 mg tablet See Rx Instructions .Route 02/04/22 10/24/22 Rx .COMPLEX #90 tabs amoxicillin 500 mg-potassium 1 tab PO BID #60 tabs 08/22/22 10/24/22 Rx clavulanate 125 mg tablet metoprolol tartrate 25 mg tablet 12.5 mg PO BID #90 tabs 10/23/22 10/24/22 Rx Adult Low Dose Aspirin PO DAILY 10/24/22 History Fish Oil 2,400 PO DAILY 10/24/22 History Metamucil See Rx Instructions .Route .COMPLEX 10/24/22 10/24/22 History Stool Softener (docusate pipo) PO DAILY 10/24/22 History Tums 500 PO DAILY 10/24/22 History Vitamin D3 PO DAILY 10/24/22 History Allergies Allergy/AdvReac Type Severity Reaction Status Date / Time No Known Drug Allergies Allergy Verified 04/19/22 14:10 Review of Systems Review of Systems Narrative: All other systems reviewed with the patient and are negative unless otherwise stated. Exam Vital Signs (past 8 hours): - 10/24/22 15:22 10/24/22 15:22 10/24/22 15:30 Pulse Rate 73 68 Respiratory Rate 19 Blood Pressure 166/84 H Pulse Oximetry 99 97 10/24/22 15:32 10/24/22 15:32 Pulse Rate 70 Respiratory Rate 22 Blood Pressure 133/73 Pulse Oximetry 98 Narrative Exam Narrative: GEN: no acute distress, slight dysarthria HEENT: moist mucous membranes, PERRL NECK: trachea midline, no JVD CV: regular rate and rhythm, no murmurs PULM: clear bilaterally ABD: soft, nontender, nondistended, no organomegaly EXT: warm and well perfused with no edema NEURO: awake, alert, oriented, deficit with coordination of left arm and finger to nose test Objective Labs 10/24/22 15:12 10/24/22 15:12 Labs: Laboratory Results - last 24 hr 10/24/22 10/24/22 10/24/22 15:12 15:12 15:12 WBC 7.0 RBC 3.66 L Hgb 12.2 Hct 35.1 L MCV 95.8 MCH 33.3 MCHC 34.8 RDW 12.6 Plt Count 315 Neut % (Auto) 43.6 L Lymph % (Auto) 41.1 H Ber[place] % (Auto) 11.3 Eos % (Auto) 2.6 Baso % (Auto) 1.4 Neut # (Auto) 3100 Lymph # (Auto) 2900 [place] # (Auto) 800 Eos # (Auto) 200 Baso # (Auto) 100 PT 11.5 INR 1.0 APTT 36 Sodium 133 L Potassium 4.4 Chloride 99 Carbon Dioxide 25 BUN 18 H Creatinine 1.06 H Estimated GFR 55 L BUN/Creatinine Ratio 17.0 Glucose 109 Calcium 9.6 Total Bilirubin 0.4 AST 30 ALT 24 Alkaline Phosphatase 77 Total Creatine Kinase 209 H CK-MB (CK-2) 1.29 CK-MB (CK-2) Rel Index 0.6 L Troponin I 0.025 Total Protein 7.1 Albumin 4.3 Globulin 2.8 Albumin/Globulin Ratio 1.5 SARS-CoV-2 (PCR) 10/24/22 15:39 WBC RBC Hgb Hct MCV MCH MCHC RDW Plt Count Neut % (Auto) Lymph % (Auto) [place] % (Auto) Eos % (Auto) Baso % (Auto) Neut # (Auto) Lymph # (Auto) [place] # (Auto) Eos # (Auto) Baso # (Auto) PT INR APTT Sodium Potassium Chloride Carbon Dioxide BUN Creatinine Estimated GFR BUN/Creatinine Ratio Glucose Calcium Total Bilirubin AST ALT Alkaline Phosphatase Total Creatine Kinase CK-MB (CK-2) CK-MB (CK-2) Rel Index Troponin I Total Protein Albumin Globulin Albumin/Globulin Ratio SARS-CoV-2 (PCR) Negative Assessment & Plan Assessment & Plan narrative: # TIA vs stroke -has left arm and leg weakness which has mostly resolved, with ongoing difficulty in coordination of left arm and leg -CT/CTA head normal -can not obtain MRI due to pacemaker, will try to contact Dr. Cabello outpatient neurologist to order outpatient MRI -obtain echo -start aspirin and Plavix x21 days -telemetry -increase Lipitor to 80mg nightly -PT/OT/speech ordered # epilepsy -continue keppra # HTN -hold BP meds for 24 hours # HLD -continue lipitor, will raise from 20 to 80 daily Code status is Full code. COVID negative. DVT prophylaxis with Lovenox. Proxy is Shaun. I have reviewed home meds and used all available resources to reconcile the home meds. This patient will be admitted as observation and will require less than 2 midnights of hospital time to treat TIA.
[2022-10-24 17:46] LABS: Cholesterol 194 mg/dL (140-199); HDL Cholesterol 79 mg/dL (40-60); LDL Cholesterol Calculated 78 mg/dL (<100); Magnesium 1.8 mg/dL (1.6-2.3); Triglycerides 185 mg/dL (35-150)
[2022-10-24 18:16] LABS: TSH w/ Reflex to FT4 1.46 uIU/mL (0.47-4.68)
[2022-10-24] MEDS: CLOPIDOGREL 75 MG TABLET PO (18:19)
[2022-10-24] MEDS: ENOXAPARIN 40 MG/0.4 ML SYRINGE SUBCUT (18:19)
[2022-10-24] MEDS: ASPIRIN EC 81 MG TABLET PO (18:19)
[2022-10-24] MEDS: ATORVASTATIN 20 MG TABLET 80 MG PO (21:04)
[2022-10-24] MEDS: levETIRAcetam 250 MG TABLET 500 MG PO (21:04)
[2022-10-25] VITALS: BP 130/61; PULSE 65; RESP 18; TEMP 35.8; O2SAT 93
[2022-10-25 05:23] VITALS: BP 127/65; PULSE 60; RESP 17; TEMP 35.9; O2SAT 94
[2022-10-25 05:52] LABS: Add Manual Diff / Slide Review NO; Basophils Absolute Auto 100 /uL (0-100); Basophils Percent Auto 1.1 % (0-2); Eosinophils Absolute Auto 300 /uL (0-450); Eosinophils Percent Auto 5.3 % (2-4); Hematocrit 35.8 % (36-46); Hemoglobin 12.3 g/dL (12.0-16.0); Lymphocytes Absolute Auto 2000 /uL (1100-4500); Lymphocytes Percent Auto 38.1 % (25-40); Mean Corpuscular HGB Conc 34.4 % (30-36); Mean Corpuscular Hemoglobin 32.7 PG (26-34); Mean Corpuscular Volume 95.2 fL (80-100); Monocytes Absolute Auto 700 /uL (0-900); Monocytes Percent Auto 13.5 % (3-14); Neutrophils Absolute Auto 2200 /uL (1500-7000); Platelet Count 293 X10^3/uL (150-400); Red Blood Cell Count 3.76 X10^6/uL (4.0-5.2); Red Cell Distribution Width 12.4 % (11.6-14.8); White Blood Cell Count 5.2 X10^3/uL (4.5-11.0)
[2022-10-25 06:57] LABS: BUN Creatinine Ratio 19.8 (6-22); Blood Urea Nitrogen 16 mg/dL (7-17); Carbon Dioxide 24 mmol/L (22-32); Chloride 103 mmol/L (98-107); Estimated Glomerular Filt Rate > 60 mL/min (>60); Glucose 95 mg/dL (80-110); HEMOLYSIS < 15 (0-50); Sodium 134 mmol/L (137-145)
[2022-10-25] MEDS: levETIRAcetam 250 MG TABLET 500 MG PO ×2 (10:10→21:06)
[2022-10-25] MEDS: CLOPIDOGREL 75 MG TABLET PO (10:10)
[2022-10-25] MEDS: ASPIRIN EC 81 MG TABLET PO (10:10)
[2022-10-25] MEDS: ENOXAPARIN 40 MG/0.4 ML SYRINGE SUBCUT (10:10)
[2022-10-25 10:20] VITALS: BP 122/69; PULSE 68; RESP 19; TEMP 37; O2SAT 96
--- NOTE | 2022-10-25 11:00 | PT.IIE ---
Surgical History (Last Reviewed 10/24/22 @ 15:41 by Jacoby Rader MD) H/O aortic valve replacement History of breast reconstruction Medical History (Last Reviewed 10/24/22 @ 15:41 by Jacoby Rader MD) Anxiety Cervical strain Colon polyps Epilepsy History of breast cancer Hyperlipidemia Hypertension Spondylolysis of cervical spine Physical Therapy Inpatient Evaluation/Re-Eval M1 PT/OT-IP Prior Functional Status Start: 10/25/22 13:33 Freq: NEEDED Status: Active Protocol: Document 10/25/22 11:00 AB (Rec: 10/25/22 13:53 AB [id number]) Medical Review Prior Functional Status Medical History Reviewed Yes Communication able to maken needs known Mobility and Gait pt stated that she is independent with all mobilities and ambulation without AD Social History Household Members spouse Living Arrangements House Number of Floors (Floors) One Floor Number of Stairs To Enter/Railing? 2 steps without rails to enter ; pt stated that she holds on to L wall for support Home Environment Standard Height Toilet,Walk in Shower Home Equipment Shower Seat without Backrest, Hand Held Shower Employment Status Retired Additional Social History Comment pt stated that spouse recently got diagnosed with Alzheimer' s dementia and will not be able to assist her. 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 M2 PT-IP Current Condition Start: 10/25/22 13:33 Freq: NEEDED Status: Active Protocol: Document 10/25/22 11:00 AB (Rec: 10/25/22 13:53 AB [id number]) Physical Therapy Current Condition Current Condition Evaluation Date 10/25/22 Treatment Diagnosis TIA; difficulty in walking Onset Date 10/24/22 M3 PT-IP Subjective Start: 10/25/22 13:33 Freq: NEEDED Status: Active Protocol: Document 10/25/22 11:00 AB (Rec: 10/25/22 13:53 AB [id number]) Subjective Physical Therapy Visit Type Type Initial Evaluation Visit Start Time 11:00 Visit Stop Time 11:40 Total Visit Minutes 40 Number of COOK FISH EGGS Visits 0 Physical Therapy Visit Comments Patient Comments agreeable to do PT M4 PT-IP Mobility and Gait Start: 10/25/22 13:33 Freq: NEEDED Status: Active Protocol: Document 10/25/22 11:00 AB (Rec: 10/25/22 13:53 AB [id number]) PT-Bed Mobility Assessment Supine to Sit Supine to Sit Standby Assistance Sit to Supine Sit to Supine Standby Assistance PT-Transfer Assessment Sit to and From Stand Sit to and from Stand Contact Guard Assistance,1 Person Assistance,Use of Upper Extremities Equipment Transfer Assistive Device Gait Belt,Front Wheeled Walker Orthotic/Prosthetic Devices or Brace: No Transfers Transfer Destination Bed,Chair Transfer Technique Stand Step Pivot Transfer Ability Level of Assist Minimal Assistance,Moderate Assistance,1 Person Assistance ,Use of Upper Extremities Comments Mobility Comments pt sitting on the chair. slight L facial droop. presents incoordination of L side with overshooting of target of LLE during activity. completed sit to stand CGA. initially assesed without AD mod A ~ 3 ft but with very unsteady gait and pt stated that she cannot walk without the FWW. continued ambulation using FWW. pt presents with lateral trunk lean on the R with LE crossing (+) LOB x 3 requiring mod A and max cues. pt sat on EOB. educated on ambulation techniques. pt stated that she has chronic R hip problem confirming L sided lateral tilt. pt completed sit to stand CGA and ambulated again using FWW mod A 30 ft with emphasis on shorter steps , increase SHASHI. pt sat back on chair. educated on up/down step. ambulated towards step stool using FWW mod A. completed up /down step QUALITY SYSTEM MANAGER mod A + R side wall support. pt ambulated to EOB mod A using FWW. completed sit<>supine SBA. agreed to get up again to chair and completed transfer using FWW min to mod A and cues. positioned pt on the chair. call light and table placed within reach. informed pt regarding d/c recommendation of acute rehab and agreed. Gait Assessment Gait Gait Assistance Required: Moderate Assistance,1 Person Assist Distance (Feet) 30 Able to Maintain Weight Bearing Status Yes During Gait Assistive Devices Assistive Device Gait Belt,Front Wheeled Walker Orthotic/Prosthetic Devices or Brace: No Gait Deviations General Gait Pattern Antalgic,Lateral Trunk Lean, Narrow Based Gait,Step-to Gait Factors Limiting Gait Function Factors Limiting Gait Function Decreased Activity Tolerance, Decreased Sensation,Decreased Strength,Incoordination, Limited Range of Motion,Poor Balance,Poor Safety Awareness Stair Climbing Assessment Evaluation Level of Assist On Stairs Moderate Assistance Technique/Endurance Stair Climbing Direction Ascend and Descend Stair Climbing Technique Step to Step Number of Steps Climbed 1 Query Text: Stair Climbing Set # Repetitions (reps) 1 Comments Stair Climbing Comments refer to mobility section for details PT-Balance Assessment Sitting Balance and Reactions Static Sitting Balance Ability Good Dynamic Sitting Balance Ability Good Standing Balance and Reactions Static Standing Balance Ability Poor Dynamic Standing Balance Ability Poor Device Used FWW M5 PT-IP Objective Assessments Start: 10/25/22 13:33 Freq: NEEDED Status: Active Protocol: Document 10/25/22 11:00 AB (Rec: 10/25/22 13:53 [email or web address]) Orientation Orientation/Cognition Level of Alertness Alert Orientation Name,Place,Situation Language Function Ability No Deficits Noted Safety Awareness Decreased Safety Awareness Memory Description No Deficits Noted Gross Range of Motion Lower Extremity ROM Assessment Within Functional Limits Strength Lower Extremity Strength Assessment Left Impaired Hip 4-/5 Knee 3+/5 Coordination Assessment Gross Coordination Gross Coordination Impaired Sensation Assessment Sensation Gross Sensation Left LE Impaired Sensation Description Numbness Comments Sensation Comments L foot numbness M6 PT-IP Treatment Start: 10/25/22 13:33 Freq: NEEDED Status: Active Protocol: Document 10/25/22 11:00 AB (Rec: 10/25/22 13:53 [email or web address]) Physical Therapy Treatment Education Education Provided Safety M7 PT-IP Assessment and Plan Start: 10/25/22 13:33 Freq: NEEDED Status: Active Protocol: Document 10/25/22 11:00 AB (Rec: 10/25/22 13:53 [email or web address]) PT Summary Assessment and Plan Potential Rehabilitation Potential Good Status of Condition at Evaluation Evolving Summary Impairments Pain,ROM,Strength,Balance, Coordination,Sensation,Tone, Cognition,Bed Mobility, Transfers,Gait,Activity Tolerance Assessment Summary pt presented to the ED with L sided weakness. CT is unremarkable for CVA but MRI unable to conduct due to pacemaker. pt presents to have CVA with L sided weakness and incoordination and currently requiring mod A with ambulation using FWW. pt with episodes of LOB during ambulation with use of FWW. pt's spouse was recently diagnosed with Alzheimer's dementia and will not be able to assist pt. pt will benefit from acute rehab to improve overall mobility and independence. Goals Bed Mobility Goal Independent Transfer Goal Standby Assistance,Front Wheeled Walker Gait Goal Standby Assistance,Front Wheel Walker Gait Distance 150 Other Goals up/down 2 steps using SPC SBA Days to Meet Goals 10 Frequency of Treatment Frequency Of Treatment Once a Day Treatment Plan Physical Therapy Treatment Plan Bed Mobility Training,Transfer Training,Gait Training, Therapeutic Exercise,Balance Retraining,Discharge Planning, Hot or Cold Pack,Neuromuscular Re-ed,Coordination Retraining ,Manual Therapy Precautions Other Precautions falls Recommendations To Nursing Amount of Assist Needed 1 Person Assist Discharge Recommendations PT Discharge Recommendations Acute Rehab Equipment Needed for Home Before FWW: if pt goes home Discharge Transportation Needs at Discharge Private Vehicle,Wheelchair/ Cabulance
--- NOTE | 2022-10-25 11:01 | SLP.IPNOTE ---
Order received. Pt was asleep in room. Is scheduled for MRI. Checked with nursing who reported pt had equatorial guine[place] toast for breakfast and chewed it for 20 minuted. Additionally, she pockets foods. Will attempt again near noon meal.
--- NOTE | 2022-10-25 11:47 | ST.IPIE ---
Visit Care Team Role Provider Type Brice Giron DO Primary Care Provider Physician Specialty: Family Practice Address: [address] [place] [address], [id number] Email: [email or web address] Emergency Provider Physician Referring Provider Specialty: Emergency Medicine Address: [address] [place] [address], [id number] Email: [email or web address] DO Admit Provider Physician Attending Provider Specialty: Internal Medicine Address: [address] [place] [address], [address] Email: [email or web address] Past Medical History (Last Reviewed 10/24/22 @ 15:41 by Jacoby Rader MD) Anxiety (Medical) Cervical strain (Medical) Colon polyps (Medical) Epilepsy (Medical) 2020, 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 Patient History 77yo F with PMH of epilepsy on keppra, aortic valve replacement in 2010, HTN, HLD, and anxiety who presented to the ED with possible stroke. Patient states she was out walking with her and had sudden-onset left foot numbness and tingling with weakness and foot drop which progressively worsened. On the drive to the ED her left arm then began to feel numb and weak. Mental Status Mental Status Alert,Responsive,Cooperative Subjective Observations Subjective Pt was in bedside chair in her room with her in attendance. Pt accurately described the events that lead to her admission to . Pt reported that the left side of her face felt like she ad been to the dentist and the numbness is wearing off. Oral Motor Lips Function WFL Observation at rest slight L facial droop Pucker slight L facial weakness. Was able to retain puffed cheeks with pressure Retraction slight L facial ROM Alternating pucker/retraction slight L facial speed Tongue Function Mild Impairment Observations at rest WFL Protrusion WFL Retraction WFL Lateralization WFL Jaw Function WNL Soft Palate Function WNL Respiration/Phonation Tools Observations WNL Diadochokinetic Rates P^ Quality WFL T^ Quality Mild Impairment Comments imprecise placement and decreased accuracy with speed K^ Quality Mild Impairment Comments imprecise placement and decreased accuracy with speed P^T^K^ Duration per 3 sec. imprecise placement and decreased accuracy with speed Quality Mild Impairment Speech Intelligibility Conversation Severity Mildly Impaired Comments speech rate is slowed and speech sounds slurred Awareness/Strategy Use Description Type of awareness/use Uses consistently Findings Details Motor Speech Function Mild Impairment Assessment Details Assessment Pt presented with mild dysarthria noted primarily during DKS and in conversation . Pt stated her speech sounded mildly slurred. DKS was slow and imprecise for speed of movements Pt reported no difficulty with eating/ swallowing. Pt reported left facial numbness and was aware of the sense of weakness on the left. Prognosis Rehabilitation Potential Excellent Recommendations Treatment Recommended Yes Frequency 1-2x/day while inpt Short Term Goals 1) Pt will perform facial and lingual exercises as described to her 5-10x/day. Written description of exercises was provided. 2) Acute rehab is recommended Referrals Other Acute Rehab Patient/Family Education Education Described results of evaluation,Patient Understanding,Family Understanding,Patient Demonstration
--- NOTE | 2022-10-25 13:17 | OT.IP.EVAL ---
Past Medical History (Last Reviewed 10/24/22 @ 15:41 by Jacoby Rader MD) Anxiety Cervical strain Colon polyps Epilepsy History of breast cancer Hyperlipidemia Hypertension Spondylolysis of cervical spine Surgical History (Last Reviewed 10/24/22 @ 15:41 by Jacoby Rader MD) H/O aortic valve replacement History of breast reconstruction Occupational Therapy Inpatient Evaluation/Re-Eval M1 PT/OT-IP Prior Functional Status Start: 10/25/22 12:50 Freq: Status: Active Protocol: Document 10/25/22 12:52 AMS (Rec: 10/25/22 13:17 [facility] [id number]) Medical Review Social History Household Members spouse Living Arrangements House Number of Floors (Floors) One Floor Number of Stairs To Enter/Railing? 2 short steps to enter/exit via landing 1 step to enter/exit via garage door (entrance primarily used) Employment Status Retired Additional Social History Comment Spouse has Parkinson's disease ; recently diagnosed w/ AD. Sleep Number Bed Standard height toilet Shower stall w/ 'little curb' to surpass. No grab bars in the home. Shower stool w/ no back available. Jacuzzi tub w/ wrap around shower curtain (primary method of choice of bathing). Hard wood mariama w/ use of 2 -sided sticky tape to help w/ adherence of rugs to floor. M2 OT-IP Current Condition Start: 10/25/22 12:50 Freq: Status: Active Protocol: Document 10/25/22 12:52 AMS (Rec: 10/25/22 13:17 [facility] [id number]) Occupational Therapy Current Condition Current Condition Evaluation Date 10/25/22 M3 OT- IP Subjective and Pain Start: 10/25/22 12:50 Freq: Status: Active Protocol: Document 10/25/22 12:52 AMS (Rec: 10/25/22 13:17 [facility] [id number]) OT- Subjective Occupational Therapy Visit Type Type Initial Evaluation Visit Start Time 08:43 Visit Stop Time 09:15 Total Visit Minutes 32 Occupational Therapy Visit Comments Patient Comments Aundrea was agreeable to work with OT; she was seen post- completion of breakfast meal. Main concern left sided weakness of UE/LE and speech. OT Pain Assessment Pain When Pain Assessed At Rest Pain Present Pain Present Denied Pain M4 OT- IP ADL's Start: 10/25/22 12:50 Freq: Status: Active Protocol: Document 10/25/22 12:52 AMS (Rec: 10/25/22 13:17 AMS [id number]) OT [id number] Comments OT Self-Feeding Comments Independent with set-up; primarily use of utensils in dominant, right hand. OT ADL-Oral Care Comments Oral Care Comments Independent w/ set-up of brushing teeth while seated in chair. OT ADL-Dressing Comments OT Dressing Comments Donned socks in sitting independently. No loss of balance noted in chair. (+) use of left hand to assist w/ management. OT ADL-Bathing Comments OT Bathing Comments Independent w/ set-up w/ washing of face while seated. M6 OT- IP Functional Cognition Start: 10/25/22 12:50 Freq: Status: Active Protocol: Document 10/25/22 12:52 AMS (Rec: 10/25/22 13:17 AMS [id number]) Cognitive Factors Limiting Selfcare Function Cognitive Comments Cognitive Assessment Comments Oriented to month, date, year and location. Provided social history without support. OT- Vision and Hearing OT- Vision Assessment Vision Assessment Comments Denied any vision changes. M7 OT- IP Mobility and Balance Start: 10/25/22 12:50 Freq: Status: Active Protocol: Document 10/25/22 12:52 AMS (Rec: 10/25/22 13:17 [facility] [id number]) OT- Bed Mobility Assessment Rolling Type of Rolling Roll to Left Level of Assistance Independent Supine to Sit Supine to Sit Assist Independent Scooting Scooting to Edge of Bed Independent OT-Transfer Assessment Comments Mobility Comments Independent w/ bed mobility without utilization of bed rails and/or assist for supine --> EOM transfer going to the left. Supervision of transfer from EOM --> chair w/ FWW to assist w/ management of monitor (given unavailability of pocket in gown for management). OT- Gait Assessment Comments Gait Ability Comments Supervision w/ transfer from EOM --> chair w/ use of FWW. M8 OT- IP Objective Assessments Start: 10/25/22 12:50 Freq: Status: Active Protocol: Document 10/25/22 12:52 AMS (Rec: 10/25/22 13:17 AMS [id number]) OT- Coordination Assessment Comments Coordination Comments Mild difficulties w/ finger opposition of the left hand ( decreased pad-to-pad contact). Mild difficulties w/ thumb slides w/ thumb opposition of the left hand w/ visual feedback. Right midline shift with bringing hands together infront of body in sitting to midline. Left midline shift with bringing hands together above head in sitting to midline. Mild changes in sensation of the left upper extremity reported. M9 OT- IP Assessment and Plan Start: 10/25/22 12:50 Freq: Status: Active Protocol: Document 10/25/22 12:52 AMS (Rec: 10/25/22 13:17 AMS [id number]) OT Summary Assessment and Plan Potential Rehabilitation Potential Good Summary Assessment Summary Aundrea was referred to occupational therapy secondary to recent TIA. Prior to admission into , Aundrea was independent with mobility, basic and IADLS, including driving of personal vehicle and taking care of the couple' s garden. Aundrea resides with her spouse in a 1-story home that is not equipped with adaptive equipment (e.g., grab bars, railings, HSH). She presents with impaired L UE sensation and coordination which was observed to impact her ability to manipulate objects w/ completion of self- tasks in sitting (grasping of container with the left hand). She would benefit from an outpatient PT evaluation to assess mobility needs/ including appropriate mobility AE. She would also benefit from further therapies, including OT to support return to prior level of independence and improve upon left handed coordination/ object manipulation abilities. Goals Grooming Goal Independent Dressing Goal Independent Toileting Goal Independent Bathing Goal Independent Toilet Transfer Goal Independent Shower Transfer Goal Independent Frequency of Treatment Frequency Of Treatment Once a Day Treatment Plan OT Treatment Plan ADL Training,Functional Mobility,IADL Training,Patient /Family Education,Discharge Planning Other Treatment Recommendations and Next Shower. Treatment Focus Discharge Recommendations Other Discharge Recommendations Acute Rehab vs Home with Assistance. Home health vs outpatient therapies.
[2022-10-25 13:59] VITALS: BP 144/78; PULSE 66; RESP 16; TEMP 35.8; O2SAT 100
--- NOTE | 2022-10-25 14:18 | CM.DANOTE ---
Initial DCP Assessment Note 77 yo F presents with facial droop and admitted OBS for TIA vs CVA r/o, patient has pace maker so MRI is not available at this time Patient indp and active at baseline. Patient with noted deficits after this event; All therapies currently recommending acute inpatient rehab vs home w/assistance from spouse Reviewed these recs w/patient and spouse and patient eager to get back to her PLOF and agreeable to referrals to [facility] and [facility] acute [facility]hab Completed therapy notes sent to these facilities this afternoon, while awaiting review of these and determination from acute inpatient facilities, Dr Dhillon plans to keep patient admitted this evening Plan: Discharge anticipated tomorrow, home w/spouse to assist vs to acute inpatient rehab pending acceptance BRIAN Ferrer Discharge Planning/Care Management CM Discharge Assessment Start: 10/25/22 14:11 Freq: Status: Active Protocol: Document 10/25/22 14:11 DEYA (Rec: 10/25/22 14:18 DEYA [id number]) Discharge Planning Assessment Assigned Correctional Program Specialist BRIAN Hill DPOA/Assigned Designee Name Shaun Dunham, spouse Contact Information [phone] Advance Directives? No History Provided By Patient,Family Member,Medical Record Prior Living Arrangements House Household Members spouse Type of transporation used prior to Drives own vehicle admit Independent with ADL's Yes Is patient alert and oriented? Yes Comment Hoping for acute inpatient rehab Barriers to Discharge No Comment Acute rehab vs home Transportation Arrangement Anticipate pov Additional Comment Acute inpatient rehab- referrals faxed to [facility]
[2022-10-25] MEDS: CALCIUM CARBONATE 500 MG TAB 1000 MG PO (14:50)
[2022-10-25] MEDS: CHOLECALCIFEROL (VITAMIN D3) 1,000 UNIT TABLET 1000 UNIT PO (14:50)
[2022-10-25] MEDS: PSYLLIUM HUSK 1 PACKET PO (14:50)
--- NOTE | 2022-10-25 18:37 | P.PN_ITS ---
Subjective Subjective Interval history: Patient worked with PT/OT and speech who are recommending in patient rehab. Patient agrees with this. Exam Vital Signs (past 8 hours): - 10/25/22 13:59 Temperature 96.4 F L Pulse Rate 66 Respiratory Rate 16 Blood Pressure 144/78 H Pulse Oximetry 100 Oxygen Delivery Method Room Air Oxygen Flow Rate 0 Narrative Exam Narrative: GEN: no acute distress, slight dysarthria HEENT: moist mucous membranes, PERRL NECK: trachea midline, no JVD CV: regular rate and rhythm, no murmurs PULM: clear bilaterally ABD: soft, nontender, nondistended, no organomegaly EXT: warm and well perfused with no edema NEURO: awake, alert, oriented, deficit with coordination of left arm and finger to nose test Objective Labs 10/25/22 05:16 10/25/22 05:16 Labs: Laboratory Results - last 24 hr 10/25/22 10/25/22 05:16 05:16 WBC 5.2 RBC 3.76 L Hgb 12.3 Hct 35.8 L MCV 95.2 MCH 32.7 MCHC 34.4 RDW 12.4 Plt Count 293 Neut % (Auto) 42.0 L Lymph % (Auto) 38.1 [place] % (Auto) 13.5 Eos % (Auto) 5.3 H Baso % (Auto) 1.1 Neut # (Auto) 2200 Lymph # (Auto) 2000 [place] # (Auto) 700 Eos # (Auto) 300 Baso # (Auto) 100 Sodium 134 L Potassium 4.0 Chloride 103 Carbon Dioxide 24 BUN 16 Creatinine 0.81 Estimated GFR > 60 BUN/Creatinine Ratio 19.8 Glucose 95 Calcium 9.0 PFSH Medical History Anxiety Cervical strain Colon polyps Epilepsy History of breast cancer Hyperlipidemia Hypertension Spondylolysis of cervical spine Surgical History H/O aortic valve replacement History of breast reconstruction Social History household members: spouse Smoking Status: Former smoker alcohol intake: current Assessment & Plan Assessment & Plan narrative: # likely acute stroke -has left arm and leg weakness which has improved since first onset which brought to the ED, with ongoing difficulty in coordination of left arm and leg and mild dysarthria -CT/CTA head normal -cannot obtain MRI due to pacemaker, contacted Dr. Cabello outpatient neurologist who will order outpatient MRI once he see's her in clinic -echo with EF 50-55%, apical hypokinesis, mild-mod MR and mod TR -start aspirin and Plavix x21 days -telemetry -increased Lipitor to 80mg nightly -PT/OT/speech ordered and recommending inpatient rehab # epilepsy -continue keppra # HTN -restarted home metoprolol after 24 hours from admission # HLD -continue lipitor, will raise from 20 to 80 daily Code status is Full code. COVID negative. DVT prophylaxis with Lovenox. Proxy is Shaun. Dispo: Pending acute rehab placement. Quality VTE Deep Vein Thrombosis/Pulmonary Embolism Present on Admission: No
[2022-10-25 20:22] VITALS: BP 156/82; PULSE 60; RESP 18; TEMP 36.1; O2SAT 98
[2022-10-25] MEDS: ATORVASTATIN 20 MG TABLET 80 MG PO (21:05)
[2022-10-25] MEDS: FISH OIL 1,000 MG CAPSULE 1000 MG PO (21:06)
[2022-10-25] MEDS: METOPROLOL IR 25 MG TABLET 12.5 MG PO (21:06)
[2022-10-25] MEDS: DOCUSATE 100 MG CAPSULE PO (21:06)
[2022-10-25 23:19] LABS: Labcorp Hemoglobin (Hb) A1c 5.5 % (4.8-5.6)
[2022-10-26 00:30] VITALS: BP 136/71; PULSE 81; RESP 16; TEMP 35.9; O2SAT 97
[2022-10-26 03:07] VITALS: BP 135/78; PULSE 67; RESP 17; TEMP 35.9; O2SAT 94
[2022-10-26 06:19] LABS: BUN Creatinine Ratio 22.4 (6-22); Blood Urea Nitrogen 15 mg/dL (7-17); Calcium 9.2 mg/dL (8.4-10.2); Carbon Dioxide 24 mmol/L (22-32); Chloride 103 mmol/L (98-107); Estimated Glomerular Filt Rate > 60 mL/min (>60); Glucose 97 mg/dL (80-110); HEMOLYSIS < 15 (0-50); Sodium 135 mmol/L (137-145)
[2022-10-26 06:21] LABS: Add Manual Diff / Slide Review NO; Basophils Absolute Auto 100 /uL (0-100); Basophils Percent Auto 1.3 % (0-2); Eosinophils Absolute Auto 200 /uL (0-450); Eosinophils Percent Auto 4.6 % (2-4); Hematocrit 37.2 % (36-46); Lymphocytes Absolute Auto 1600 /uL (1100-4500); Lymphocytes Percent Auto 30.3 % (25-40); Mean Corpuscular Hemoglobin 33.4 PG (26-34); Mean Corpuscular Volume 95.6 fL (80-100); Monocytes Absolute Auto 600 /uL (0-900); Monocytes Percent Auto 11.4 % (3-14); Neutrophils Absolute Auto 2800 /uL (1500-7000); Neutrophils Percent Auto 52.4 % (50-75); Platelet Count 303 X10^3/uL (150-400); Red Blood Cell Count 3.89 X10^6/uL (4.0-5.2); Red Cell Distribution Width 12.6 % (11.6-14.8); White Blood Cell Count 5.3 X10^3/uL (4.5-11.0)
[2022-10-26 07:00] VITALS: BP 113/86; PULSE 64; RESP 18; TEMP 35.9; O2SAT 98
[2022-10-26] MEDS: ENOXAPARIN 40 MG/0.4 ML SYRINGE SUBCUT (09:05)
[2022-10-26] MEDS: CALCIUM CARBONATE 500 MG TAB 1000 MG PO (09:06)
[2022-10-26] MEDS: levETIRAcetam 250 MG TABLET 500 MG PO (09:06)
[2022-10-26] MEDS: METOPROLOL IR 25 MG TABLET 12.5 MG PO (09:06)
[2022-10-26] MEDS: ASPIRIN EC 81 MG TABLET PO (09:06)
[2022-10-26] MEDS: CHOLECALCIFEROL (VITAMIN D3) 1,000 UNIT TABLET 1000 UNIT PO (09:08)
[2022-10-26] MEDS: FISH OIL 1,000 MG CAPSULE 1000 MG PO (09:08)
[2022-10-26] MEDS: PSYLLIUM HUSK 1 PACKET PO (09:08)
[2022-10-26] MEDS: CLOPIDOGREL 75 MG TABLET PO (09:09)
--- NOTE | 2022-10-26 09:10 | P.DS_ITS ---
History of Present Illness History of Present Illness Date Patient Seen: 10/24/22 Time Patient Seen: 18:00 Chief complaint: facial droop, thinks stroke Narrative: Aundrea Dunham is a 77yo F with PMH of epilepsy on keppra, aortic valve replacement in 2010, HTN, HLD, and anxiety who presents with possible stroke. Patient states she was out walking with her and had sudden-onset left foot numbness and tingling with weakness and foot drop which progressively worsened. On the drive to the ED her left arm then began to feel numb and weak. No facial droop. Her symptoms then seemed to mostly resolve in the ED, but she still has some coordination difficulty in her left arm and leg. Her also says her speech is slightly dysarthric. She denies current weakness in her left arm or leg. She is hard of hearing. She is followed by outpatient neurologist Dr. Cabello for her history of seizures. Denies CP, SOB, NV, abd pain, dizziness or difficulty swallowing. Discharge Providers Provider Date of admission: 10/24/22 16:38 Discharge Date: 10/26/22 Primary care physician: Brice Giron DO Consults: 10/24/22 16:45 Consult to Occupational Therapy Evaluate & Treat Comment: Physician Instructions: Evaluate and treat 10/24/22 18:54 Consult to Physical Therapy Evaluate & Treat Comment: Physician Instructions: Evaluate and Treat Consult to Speech Therapy Evaluate & Treat Comment: Physician Instructions: Evaluate and treat Discharge provider: Artis Dhillon DO Summary Hospital Course Discharge Diagnosis: # likely acute stroke -has left arm and leg weakness which has improved since first onset which brought to the ED, with ongoing difficulty in coordination of left arm and leg and mild dysarthria -CT/CTA head normal -cannot obtain MRI due to pacemaker, contacted Dr. 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 This improved in the ED so no tPA given. Could not get MRI brain due to pacemaker. Started on DAPT and increased statin dosage. PT/OT/speech recommending acute rehab so patient transferred to [facility]. Time Spent with Patient Time spent: Greater than 30 minutes Exam Vital Signs (past 8 hours): - 10/26/22 03:07 10/26/22 07:00 Temperature 96.6 F L 96.6 F L Pulse Rate 67 64 Respiratory Rate 17 18 Blood Pressure 135/78 113/86 Pulse Oximetry 94 98 Oxygen Flow Rate 0 0 Oxygen Delivery Method Room Air Oxygen Flow Rate 0 Narrative Exam Narrative: GEN: no acute distress, slight dysarthria HEENT: moist mucous membranes, PERRL NECK: trachea midline, no JVD CV: regular rate and rhythm, no murmurs PULM: clear bilaterally ABD: soft, nontender, nondistended, no organomegaly EXT: warm and well perfused with no edema NEURO: awake, alert, oriented, deficit with coordination of left arm and finger to nose test Objective Labs 10/26/22 05:36 10/26/22 05:36 Labs: Laboratory Results - last 24 hr 10/24/22 10/26/22 10/26/22 15:12 05:36 05:36 WBC 5.3 RBC 3.89 L Hgb 13.0 Hct 37.2 MCV 95.6 MCH 33.4 MCHC 35.0 RDW 12.6 Plt Count 303 Neut % (Auto) 52.4 Lymph % (Auto) 30.3 [place] % (Auto) 11.4 Eos % (Auto) 4.6 H Baso % (Auto) 1.3 Neut # (Auto) 2800 Lymph # (Auto) 1600 [place] # (Auto) 600 Eos # (Auto) 200 Baso # (Auto) 100 Sodium 135 L Potassium 4.0 Chloride 103 Carbon Dioxide 24 BUN 15 Creatinine 0.67 Estimated GFR > 60 BUN/Creatinine Ratio 22.4 H Glucose 97 Hgb A1c (Ref Lab) 5.5 Calcium 9.2 [facility] Medical History Anxiety Cervical strain Colon polyps Epilepsy History of breast cancer Hyperlipidemia Hypertension Spondylolysis of cervical spine Surgical History H/O aortic valve replacement History of breast reconstruction Social History household members: spouse Smoking Status: Former smoker alcohol intake: current Discharge Plan Discharge Plan Patient Disposition: Xfer Inpatient Rehab I certify the postop hospital intermediate care is medically necessary on a continuing basis for any conditions for which he/ she received care during this hospitalization.: Yes The receiving facility has agreed to accept transfer and provide medical treatment.: Yes Discharge orders & Medications Discharge Orders: Discharge (Order); Ordered 10/26/22 Ordered By: Artis Dhillon Prescriptions: No Action levetiracetam [Keppra] 500 mg tablet 500 mg PO BID naproxen 500 mg tablet 500 mg PO BID Qty: 30 0RF methocarbamol 500 mg tablet 500 mg PO TID PRN (Reason: muscle spasm) Qty: 20 0RF Patient Comments: Pt stated she does not take this med anymore. She only took it when she had strong nerve pain in hr neck awhile ago, and took it for a couple weeks to help. atorvastatin 20 mg tablet See Rx Instructions .ROUTE .COMPLEX Qty: 90 3RF Dose Instruction: take one tablet by mouth nightly. Rx Instructions: take one tablet by mouth nightly. amoxicillin-pot clavulanate 500-125 mg tablet 1 tab PO BID Qty: 60 0RF metoprolol tartrate 25 mg tablet 12.5 mg PO BID Qty: 90 1RF Adult Low Dose Aspirin 81 mg 81 mg PO DAILY Fish Oil 2,400 mg PO DAILY Metamucil See Rx Instructions .ROUTE .COMPLEX Patient Comments: Pt states she takes a heaping spoon full daily in the morning Rx Instructions: see RX label Stool Softener (docusate pipo) 1 tab PO DAILY Patient Comments: Pt states she takes at night, daily Tums 500 2 tab PO DAILY PRN (Reason: Heartburn) Vitamin D3 1 tab PO DAILY Follow up/Referrals: Brice Giron DO [Primary Care Provider] - 2 Weeks Tyrone Cabello MD [Non-Staff] - 1 Month Visit Report/Discharge Packet Stand Alone Forms: Patient Portal/API, Stroke Signs & Symptoms Discharge Data Primary Care Provider: Brice Giron Attending Provider: Artis Dhillon Admit Date/Time: 10/24/22 16:38 Quality VTE Deep Vein Thrombosis/Pulmonary Embolism Present on Admission: No
--- NOTE | 2022-10-26 09:30 | PT.IPTN ---
Physical Therapy Treatment Note M2 PT-IP Current Condition Start: 10/25/22 13:33 Freq: NEEDED Status: Active Protocol: Document 10/25/22 11:00 AB (Rec: 10/25/22 13:53 AB [id number]) Physical Therapy Current Condition Current Condition Evaluation Date 10/25/22 Treatment Diagnosis TIA; difficulty in walking Onset Date 10/24/22 M3 PT-IP Subjective Start: 10/25/22 13:33 Freq: NEEDED Status: Active Protocol: Document 10/26/22 09:53 TS (Rec: 10/26/22 10:11 TS [id number]) Subjective Physical Therapy Visit Type Type Treatment Note Visit Start Time 09:30 Visit Stop Time 09:50 Total Visit Minutes 20 Number of FIELD SERVICE ANALYST Visits 1 Physical Therapy Visit Comments Patient Comments Pt found resting in chair, reports having more mobility in her toes and feels she can hardener helper better. Continues to have some tingling in her L arm, agreeable to PT. Pt would like shower before she leaves. M4 PT-IP Mobility and Gait Start: 10/25/22 13:33 Freq: NEEDED Status: Active Protocol: Document 10/26/22 09:53 TS (Rec: 10/26/22 10:11 TS [id number]) PT-Bed Mobility Assessment Supine to Sit Supine to Sit Standby Assistance PT-Transfer Assessment Sit to and From Stand Sit to and from Stand Standby Assistance,Use of Upper Extremities Equipment Transfer Assistive Device Gait Belt,Front Wheeled Walker Orthotic/Prosthetic Devices or Brace: No Comments Mobility Comments Pt found resting in bed, agreeable to PT. Supine to sit with HOB elevated SBA, BUE support. Sit to stand x1 SBA w /BUE support on FWW, some difficulty grapsing FWW initially. She ambulated in room/hallway ~200' SBA with step thru gait, some unsteadiness, tremoring, veers to left, does correct. Stairs x6 SBA with BUE handrail assist, required cues for step sequencing, demonstrates exaggerated step height on LLE . Pt was left in bedside chair with call light nearby, tray table and spouse in room. Gait Assessment Gait Gait Assistance Required: Standby Assistance Distance (Feet) 200 Able to Maintain Weight Bearing Status Yes During Gait Assistive Devices Assistive Device Gait Belt,Front Wheeled Walker Orthotic/Prosthetic Devices or Brace: No Gait Deviations General Gait Pattern Antalgic,Lateral Trunk Lean, Narrow Based Gait Factors Limiting Gait Function Factors Limiting Gait Function Decreased Activity Tolerance, Decreased Sensation,Decreased Strength,Incoordination, Limited Range of Motion,Poor Balance,Poor Safety Awareness Comments Gait Comments See mobility comments. Stair Climbing Assessment Evaluation Level of Assist On Stairs Standby Assistance Devices Stair Climbing Assistive Devices Left Railing,Right Railing Technique/Endurance Stair Climbing Direction Ascend and Descend Stair Climbing Technique Step to Step Number of Steps Climbed 6 Comments Stair Climbing Comments See mobility comments. PT-Balance Assessment Sitting Balance and Reactions Static Sitting Balance Ability Good Dynamic Sitting Balance Ability Good Standing Balance and Reactions Static Standing Balance Ability Good Dynamic Standing Balance Ability Fair Device Used FWW M5 PT-IP Objective Assessments Start: 10/25/22 13:33 Freq: NEEDED Status: Active Protocol: Document 10/25/22 11:00 AB (Rec: 10/25/22 13:53 AB [id number]) Orientation Orientation/Cognition Level of Alertness Alert Orientation Name,Place,Situation Language Function Ability No Deficits Noted Safety Awareness Decreased Safety Awareness Memory Description No Deficits Noted Gross Range of Motion Lower Extremity ROM Assessment Within Functional Limits Strength Lower Extremity Strength Assessment Left Impaired Hip 4-/5 Knee 3+/5 Coordination Assessment Gross Coordination Gross Coordination Impaired Sensation Assessment Sensation Gross Sensation Left LE Impaired Sensation Description Numbness Comments Sensation Comments L foot numbness M6 PT-IP Treatment Start: 10/25/22 13:33 Freq: NEEDED Status: Active Protocol: Document 10/26/22 09:53 TS (Rec: 10/26/22 10:11 [id number]) Physical Therapy Treatment Education Education Provided Safety M7 PT-IP Assessment and Plan Start: 10/25/22 13:33 Freq: NEEDED Status: Active Protocol: Document 10/26/22 09:53 TS (Rec: 10/26/22 10:11 TS [id number]) PT Summary Assessment and Plan Potential Rehabilitation Potential Good Summary Impairments Pain,ROM,Strength,Balance, Coordination,Sensation,Tone, Cognition,Bed Mobility, Transfers,Gait,Activity Tolerance Progress Towards Goals Progressing Toward Goals Assessment Summary Pt progressing well with her mobility this morning. She is SBA for all bed mobility with HOB elevated, sit to stands and ambulation. She had difficulty initially grasping with LUE on FWW for sit to stands. She progressed her ambulation distance to ~200' w /FWW step thru gait with good heel strike on left side in hallway. She is unsteady, slightly tremoring, veers to left, does correct without cues with gait. She performed stairs x6 SBA with an exaggerated step on LLE, no buckling or LOB but was fatigued/SOB. PT continues to recommend acute rehab to improve independence and to return safely home. Goals Bed Mobility Goal Independent Transfer Goal Standby Assistance,Front Wheeled Walker Gait Goal Standby Assistance,Front Wheel Walker Gait Distance 150 Other Goals up/down 2 steps using [facility] SBA Days to Meet Goals 10 Frequency of Treatment Frequency Of Treatment Once a Day Treatment Plan Physical Therapy Treatment Plan Bed Mobility Training,Transfer Training,Gait Training, Therapeutic Exercise,Balance Retraining,Discharge Planning, Hot or Cold Pack,Neuromuscular Re-ed,Coordination Retraining ,Manual Therapy Precautions Other Precautions falls Recommendations To Nursing Amount of Assist Needed Standby Assistance Discharge Recommendations PT Discharge Recommendations Acute Rehab Transportation Needs at Discharge Private Vehicle,Wheelchair/ Cabulance
[2022-10-26 11:00] VITALS: BP 131/77; PULSE 62; RESP 17; TEMP 35.8; O2SAT 96
--- NOTE | 2022-10-26 14:51 | PC.NURSE ---
Day shift: Discharge instructions and paperwork gone over with patient and spouse. Pt stated understanding and all questions answered. Both IV's d/c'ed and tele d/c'ed prior to discharge. Escorted patient off the floor via w/c and assisted into her car with spouse to drive her to stroke rehab facility in [facility]. This RN gave report to MELODIE Garcia at rehab facility.
--- NOTE | 2022-10-26 15:26 | CM.DPNOTE ---
DC Note Discharge to [facility] acute rehab today; [facility] denied admission to this patient stating too high functioning Inevitably, patient and spouse preferred [facility] to [facility] and spouse agreed to transport this afternoon DC Summary and inpatient med list faxed to Marisol at [facility] Nurse to Nurse report number provided to MELODIE Buckley. DEYA
--- NOTE | 2022-10-26 15:52 | ST.IPTN ---
Visit Care Team Role Provider Type Brice Giron DO Primary Care Provider Physician Address: [address] [place] [address], [id number] Jacoby Rader MD Emergency Provider Physician Referring Provider Address: [address] [place] [address], [id number] Artis Dhillon DO Admit Provider Physician Attending Provider Address: [address] [place] [address], [id number] QA SOFTWARE TESTER Treatment Note QA SOFTWARE TESTER Clinical Instructor Line Start: 10/26/22 15:33 Freq: Status: Active Protocol: Document 10/26/22 15:33 BE (Rec: 10/26/22 15:51 BE [id number]) Clinical Instructor Signature Clinical Instructor Clinical Instructor Yes QA SOFTWARE TESTER Treatment Note Start: 10/25/22 11:09 Freq: Status: Discharge Protocol: Document 10/26/22 15:33 BE (Rec: 10/26/22 15:51 BE [id number]) Speech Pathology Treatment Note Session Time Visit Start Time 10:15 Visit Stop Time 10:35 Total Visit Minutes 20 Setting Treatment Setting Acute Care Visit Type Note Type Treatment Note General Information Patient History Per H&P: 77 F with PMH of epilepsy on keppra, aortic valve replacement in 2010, HTN , HLD, and anxiety who presented to the ED with possible stroke. Pt states that she was out walking with her and had sudden- onset left foot numbness and tingling with weakness and foot drop which progressively worsened. On the drive to the ED, her left arm then began to feel numb and weak. Subjective Identification Type Name,ID Wristband Others Present Family Observations/Patient Presentation Pt was upright in bedside chair in room with her in attendance. Pt stated that she did as many exercises prescribed for facial and oral movements as she could from memory, as the homework sheet was too far away for her to grab. She was highly motivated to attempt to return to previous level of functioning, and stated that she would do as much work as needed to get there. Chief Complaint(s) Speech Patient Knowledge/Awareness of QA SOFTWARE TESTER Role Excellent in Treatment Patient/Caregiver Compliance with Home Excellent Exercise Program Objective Short Term Goals 1. Pt will perform facial and lingual exercises as described to her 5-10x/day. Written description of exercises was provided 2. Acute rehab is recommended Treatment Activities Pt demonstrated understanding of facial and lingual exercsies through implementation with QA SOFTWARE TESTER present. Corrected positioning of tongue during tongue sweep exercise. All other exercises performed correctly, and had been practiced multiples times since previous QA SOFTWARE TESTER visit. Provided information on general trajectory of therapy and improvement following stroke. Assessment Patient Response to Treatment Excellent Rehab Potential Excellent Impairments Identified Speech Progress Towards Goals Excellent Progress Assessment of Overall Progress Improving Assessment of Improvement Pt demonstrated greater coordination, speed, and precision of articulators during conversation today. Pt is highly motivated, and has thus far followed through with HEP. Her speech continues to have a slightly slurred quality, particularly around / s/ productions. Recommend follow up with speech therapy in acute rehab to monitor improvement and provide other exercises as necessary. Reviewed with Patient Progress Being Made,Home Exercise Program Patient/Caregiver Understanding Excellent Plan Comment Recommend follow up with speech therapy at acute rehab Therapeutic Contents Oral Motor Training Provided Patient/Caregiver Instruction Home Exercise Program, Questions/Concerns Therapy Recommendations Continue with Current Program, Recommended Exercises/ Activities
== END 2022-10-26 14:54 ==
LOC: ED 16:13 → AC 16:39
PROVIDERS: Admitting Provider Student in an Organized Health Care Education/Training Program; Emergency Provider Emergency Medicine; PCP Family Medicine; Referring Provider Emergency Medicine; Visit Provider Student in an Organized Health Care Education/Training Program
DX: R47.01 Aphasia (principal); R47.81 Slurred speech; R53.1 Weakness; Z20.822 Contact with and (suspected) exposure to COVID-19; R29.700 NIHSS score 0; I10 Essential (primary) hypertension; E78.5 Hyperlipidemia, unspecified; G40.909 Epilepsy, unspecified, not intractable, without status epilepticus
CPT/HCPCS: 36415; 70450; 70496; 70498; 80048; 80053; 80061; 82550; 82553; 83036; 83735; 84443; 84484; 85025; 85610; 85730; 87635; 92507; 92522; 93005; 93306; 96372; 97116; 97162; 97165; 97530; 97535; 99284; C9803; G0378; A9270; J1650; Q9967

== ENCOUNTER → 2022-11-14 07:58 | Outpatient (CLI) | payer MEDICARE, BC, SELFPAY ==
[2022-10-24 17:22] VITALS: BMI 25.7
[2022-11-14 09:05] LABS: Cholesterol 178 mg/dL (140-199); HDL Cholesterol 63 mg/dL (40-60); LDL Cholesterol Calculated 85 mg/dL (<100); Triglycerides 152 mg/dL (35-150)
[2022-11-17 16:08] LABS: Levetiracetam Keppra 14.5 ug/mL (10.0-40.0)
== END ==
PROVIDERS: Family Provider Family Medicine; PCP Family Medicine; Referring Provider Psychiatry & Neurology Neurology; Visit Provider Psychiatry & Neurology Neurology
DX: E78.5 Hyperlipidemia, unspecified (principal); G40.109 Localization-related (focal) (partial) symptomatic epilepsy and epileptic syndromes with simple partial seizures, not intractable, without status epilepticus
CPT/HCPCS: 36415; 80061; 80177

== ENCOUNTER 2022-11-15 08:13 | Outpatient (RCR) | payer MEDICARE, BC, SELFPAY ==
[2022-10-24 17:22] VITALS: BMI 25.7
--- NOTE | 2022-11-15 15:44 | OT.OP.EVAL ---
Visit Care Team Role Provider Type Brice Giron DO Family Provider Physician Primary Care Provider Specialty: Family Practice Address: [address] [place] [address], [id number] Email: [email or web address] Attending Provider Referring Provider Specialty: Address: Phone: Fax: Email: Occupational Therapy Initial Evaluation OT Outpatient Adult Evaluation Start: 11/15/22 15:08 Freq: Status: Active Protocol: Document 11/15/22 15:08 AMS (Rec: 11/15/22 15:43 AMS [id number]) General Information - Adult Visit Number 06/26 Insurance Information Medicare Visit Start Time 08:40 Visit Stop Time 09:30 Total Visit Minutes 50 Treatment Setting Outpatient Care Note Type Initial Evaluation Identification Confirmed Yes Identification Confirmed By Self Assessment/Plan Status Rehabilitated Treatment Assessment Aundrea is a 77 year-old right hand dominant female referred to outpatient OT secondary to stroke; according to medical records, Aundrea presented to the emergency room at [facility] on 10/24/22 w/ stroke- like symptoms, including suddent onset of L sided weakness of the upper and lower extremities. She was discharged to [facility] for Acute Rehab ( OT/PT/FISCAL AGENT). Medical history is significant for arthritis, back pain, blood clots, HTN, hyperlipidemia, anxiety, aortic valve replacement, pacemaker. PLOF: Independent w/ IADLS and BADLs without use of AE. Resides in a single level home w/ 2 KWESI w/ who has alzheimer's disease. Aundrea reports having assistance 1 x a month with house maintenance ; currently the couple has employed landscapers to renovate the yard to a hardscape. She is walking 1-2 miles per day and is doing chair yoga (vs prior execution of floor yoga). QuickDASH UE Score = 18.18; Sports/ Performing Arts Module Score = 25.00 (relative to walking and participating in yoga). (+ ) presence of multiple joint deformities likely d/t arthritis; however, (-) c/o pain/discomfort of the fingers /hands, including w/ broth mixer and pinch strength testing. Indication of 1/10 on the Pain Assessment Grid relative to the volar surface of L thumb and ulnar surface of dorsal L hand. Able to easily manage donning/doffing zip-up sweashirt w/ no nonverbal signs of discomfort w/ L UE positioned posterior to the body/near lower back. (+) double knotting of tie shoes/ tightly fastened w/ denial of difficulties w/ tying. (+) wearing of B earrings and managing purse and phone with active incorporation of the left hand for stabilization of objects, as well as (+) holding of clipboard with the left hand as well to support R hand object manipulation. Reported difficulties with 4th and 5th digit coordination, such as with typing; yet, was able to demonstrate some ability to dissociate 5th finger from the 4th finger w/ active abd/adduction and curl these 2 fingers into a flexed position to accurately tap the table. (+) left thumb adductor > R noted w/ tendency to hyperextend at the MCPJ to manipulate objects/w/ coordination. Instructed in self-myofascial release of thumb adductor for 20 to 30 sec and discussion of avoidance of positions of deformity of the thumb ( discussed functional c/ positioning of MCPJ L thumb joint). Demonstrated good bilateral broth mixer strength (56.0# of force R broth mixer and 59.0# of force L broth mixer dynamometer II); good lateral pinch strength ( 14.0# of force R lateral pinch and 12.5# of force L lateral pinch); relatively good tip pinch strength (9.0# of force R tip pinch and 7.0# of force L tip pinch) and slightly decreased bilateral 3-jaw pinch strength although, L 3- jaw pinch was greater then R 3 -jaw pinch (7.0# of force R 3- jaw pinch and 10.0# of force L 3-jaw pinch). Given that Aundrea's primary goals are to improve upon her balance, address endurance (given shortened walks) and address bilateral hip pain which is 4/ 10 on pain scale relative to R hip and 3/10 relative to L hip on Pain Assessment Grid, additional OT is not needed at this time w/ recommendation of outpatient PT evaluation. Therapeutic Contents Therapeutic Activities Patient Recommendations Discharge from Occupational Therapy
== END 2022-11-16 09:46 | disposition home or self-care (01) ==
LOC: OT 08:13
PROVIDERS: Absent Provider Family Medicine; Family Provider Family Medicine; PCP Family Medicine
DX: I63.9 Cerebral infarction, unspecified (principal); R27.8 Other lack of coordination; R53.1 Weakness
CPT/HCPCS: 97165; 97530

== ENCOUNTER → 2022-11-26 13:55 | Outpatient (CLI) | payer MEDICARE, BC, SELFPAY ==
[2022-10-24 17:22] VITALS: BMI 25.7
--- NOTE | 2022-11-26 13:57 | DI.RAD.S_ITS ---
PROCEDURE: XR HIP W PEL IF DONE RT 2V INDICATIONS: Worsening hip pain TECHNIQUE: AP pelvis with lateral view(s) of the right hip(s). COMPARISON: None. FINDINGS: Bones: No acute fractures or dislocations. Pelvic ring appears intact. No suspicious bony lesions. There are degenerative changes of the bilateral hips. Lower lumbar spondylosis. Soft tissues: The visualized bowel gas pattern is normal. No suspicious soft tissue calcifications. IMPRESSION: Right hip without acute fracture or dislocation. Mild degenerative changes of the bilateral hips. Lower lumbar spondylosis. Dictated by: Corona Golden M.D. on 11/26/2022 at 17:49 Approved by: Corona Golden M.D. on 11/26/2022 at 17:50
== END ==
PROVIDERS: Family Provider Family Medicine; PCP Family Medicine; Referring Provider Family Medicine; Visit Provider Family Medicine
DX: M25.551 Pain in right hip (principal); M47.816 Spondylosis without myelopathy or radiculopathy, lumbar region
CPT/HCPCS: 73502

== ENCOUNTER 2022-12-27 10:45 | Outpatient (RCR) | payer MEDICARE, BC, SELFPAY ==
[2022-10-24 17:22] VITALS: BMI 25.7
--- NOTE | 2022-11-19 15:53 | PT.OIE ---
Current Diagnoses Cerebral infarction, unspecified (11/21/22) Pain in right hip (11/21/22) Weakness (11/21/22) Past Medical History (Last Reviewed 11/05/22 @ 17:40 by Brice Giron DO) Anxiety Cervical strain Colon polyps Epilepsy History of breast cancer Hyperlipidemia Hypertension Spondylolysis of cervical spine Past Surgical History (Last Reviewed 11/05/22 @ 17:40 by Brice Giron DO) H/O aortic valve replacement History of breast reconstruction Visit Care Team Role Provider Type Brice Giron DO Family Provider Physician Primary Care Provider Specialty: Family Practice Address: [address] [place] [address] Email: Attending Provider Referring Provider Specialty: Address: Phone: Fax: Email: Physical Therapy Initial Evaluation PT-OP-A Visit Information Start: 11/13/22 14:20 Freq: Status: Active Protocol: Document 11/19/22 09:04 AMB (Rec: 11/19/22 09:45 AMB [id number]) Out-Patient Physical Therapy Visit Information Visit Information Visit Type Initial Evaluation Visit Start Time 09:04 Visit Stop Time 09:45 Total Visit Minutes 41 Visit Number 1 Precautions Precautions Pacemaker, osteoporosis PT-OP-B Current Condition Start: 11/13/22 14:20 Freq: Status: Active Protocol: Document 11/19/22 09:04 AMB (Rec: 11/19/22 09:45 AMB [id number]) Current Condition History of Current Condition Onset Date 10/24 Current Complaints TIA History of Current Condition Pt had TIA with resultant L LE weaknes and numbness. No falls since returning home. Was able to d/c home with s/p acute care stay. recently diagnosed with Alzheimers. R hip pain increased because they took her off naproxen and thinks she is putting more weight on R leg due to L leg weakness. By the afternoon and cooking in the kitchen the hip pain really increases. Is trying to do yoga on the floor, does need UE support for her floor transfer. Enjoys hiking but has not been back to hiking since. Walking 15-20 minutes, but hip pain limits. Attends with single trekking pole in the R hand. Notices some numbness on plantar aspect of the left foot. Personal Factors Other Personal Factors That May Effect Heart valve replacement in 6/ Therapy/Recovery 11; septicemia in 2017, double mastectomy 2010 PT-OP-C Subjective Start: 11/13/22 14:20 Freq: Status: Active Protocol: Document 11/19/22 15:27 AMB (Rec: 11/21/22 15:27 AMB [id number]) OP-PT Pain Assessment Comments Pain Comments R hip 4/10, Left hip 2/10 PT-OP-D Balance Start: 11/13/22 14:20 Freq: Status: Active Protocol: Document 11/19/22 09:00 AMB (Rec: 11/21/22 15:53 AMB [id number]) Balance Tests Single Limb Standing Single Limb- Right 3 Single Limb- Left 2 PT-OP-G Mobility & Gait Start: 11/13/22 14:20 Freq: Status: Active Protocol: Document 11/19/22 14:26 AMB (Rec: 11/21/22 14:32 AMB [id number]) OP Gait Assessment Comments Gait Comments Pt ambulates with trekking pole in R UE, trendelenburg gait pattern increases when not using AD. PT-OP-M Strength Start: 11/13/22 14:20 Freq: Status: Active Protocol: Document 11/19/22 09:04 AMB (Rec: 11/19/22 09:45 AMB [id number]) Hip Strength Hip Manual Muscle Testing Right Flexion (L2) 4+ Good+ Extension (S1) 4- Good- Abduction 4- Good- Left Flexion (L2) 4- Good- Extension (S1) 4 Good Abduction 4 Good Knee Strength Knee Manual Muscle Testing Right Flexion (S2) 4+ Good+ Extension (L3) 4+ Good+ Left Flexion (S2) 4 Good Extension (L3) 4 Good PT-OP-Q Treatments Start: 11/13/22 14:20 Freq: Status: Active Protocol: Document 11/19/22 14:26 AMB (Rec: 11/21/22 14:32 AMB [id number]) Therapeutic Exercises Supine Exercises IT band stretch Reps/Minutes 30x2 Sidelying Exercises hip abd Sidelying Exercise Name SLR Side bilateral Reps/Minutes 2x10 PT-OP-T Assessment and Plan Start: 11/13/22 14:20 Freq: Status: Active Protocol: Document 11/19/22 14:26 AMB (Rec: 11/21/22 14:32 [facility] [id number]) Physical Therapy Assessment Rehab Potential Rehabilitation Potential Good Evaluation Complexity Number of Personal Factors/Comorbidities 1-2 Number of Body Systems Impaired 4 or More Clinical Presentation at Evaluation Stable Impairments Impairments Balance,Gait,Pain,Strength Goals Balance Senior C Web Developer Goal (LTG) Aundrea will show improved balance by maintaining single leg stance for 5 seconds to help her return to her yoga practice. LTG Duration 8 weeks Three Impairment Gait Short Term Goal (STG) Aundrea will ambulate for 10 minutes without AD without trendelenburg gait over smooth terrain. STG Duration 4 weeks Snf Goal (LTG) Aundrea will ambulate over uneven surfaces including grass, gravel, and curbs without antalgic gait and without loss of balance. LTG Duration 8 weeks Two Impairment Pain Short Term Goal (STG) Aundrea will ascend/descend a flight of stairs without hip pain. STG Duration 4 weeks One Impairment Strength Short Term Goal (STG) Aundrea will be independent with a HEP to improve her hip strength bilaterally. STG Duration 4 weeks Assessment Summary Assessment Aundrea attends physical therapy with L sided weaknes s/p CVA one month previous. She also presents with right sided hip pain which was present before the CVA and worse now that she has been taken off of her pain medication. Aundrea had a high level of function prior to her CVA and was hiking and doing yoga, she has struggled to return to these activities. She will benefit from physical therapy to manage her pain, improve her gait, balance and return to her prior level of function. Physical Therapy Plan Frequency and Duration Frequency of Treatment 2x/Week Duration of treatment (weeks) 10 Plan of Care Start Date 11/19/22 Plan of Care End Date 01/28/23 Therapeutic Interventions Therapeutic Interventions Balance Training,Gait Training ,Home Exercise Program,Manual Therapy,Neuromuscular Re- education,Self-Care/Home Management,Therapeutic Activities,Therapeutic Exercises Modalities Cold Pack/Ice Massage,Electric Stimulation,Hot Packs Next Visit Focus/Plan Next Note Type Treatment Note Next Visit Plan Progress pt's strengthening ( hip abduction) and balance HEP
--- NOTE | 2022-11-19 15:55 | PT.OPPOC ---
Physical, Occupational & Speech Therapy At [facility] Current Diagnoses Cerebral infarction, unspecified (11/21/22) Pain in right hip (11/21/22) Weakness (11/21/22) Visit Care Team Role Provider Type Brice Giron DO Family Provider Physician Primary Care Provider Specialty: Family Practice Address: [address] [place] [address], [facility] Email: [email or web address] Attending Provider Referring Provider Specialty: Address: Phone: Fax: Email: Plan Of Care PT-OP-T Assessment and Plan Start: 11/13/22 14:20 Freq: Status: Active Protocol: Document 11/19/22 14:26 AMB (Rec: 11/21/22 14:32 AMB [id number]) Physical Therapy Assessment Rehab Potential Rehabilitation Potential Good Evaluation Complexity Number of Personal Factors/Comorbidities 1-2 Number of Body Systems Impaired 4 or More Clinical Presentation at Evaluation Stable Impairments Impairments Balance,Gait,Pain,Strength Goals Balance Longterm Goal (LTG) Aundrea will show improved balance by maintaining single leg stance for 5 seconds to help her return to her yoga practice. LTG Duration 8 weeks Three Impairment Gait Short Term Goal (STG) Aundrea will ambulate for 10 minutes without AD without trendelenburg gait over smooth terrain. STG Duration 4 weeks Lymphedema Therapist Goal (LTG) Aundrea will ambulate over uneven surfaces including grass, gravel, and curbs without antalgic gait and without loss of balance. LTG Duration 8 weeks Two Impairment Pain Short Term Goal (STG) Aundrea will ascend/descend a flight of stairs without hip pain. STG Duration 4 weeks One Impairment Strength Short Term Goal (STG) Aundrea will be independent with a HEP to improve her hip strength bilaterally. STG Duration 4 weeks Assessment Summary Assessment Aundrea attends physical therapy with L sided weaknes s/p CVA one month previous. She also presents with right sided hip pain which was present before the CVA and worse now that she has been taken off of her pain medication. Aundrea had a high level of function prior to her CVA and was hiking and doing yoga, she has struggled to return to these activities. She will benefit from physical therapy to manage her pain, improve her gait, balance and return to her prior level of function. Physical Therapy Plan Frequency and Duration Frequency of Treatment 2x/Week Duration of treatment (weeks) 10 Plan of Care Start Date 11/19/22 Plan of Care End Date 01/28/23 Therapeutic Interventions Therapeutic Interventions Balance Training,Gait Training ,Home Exercise Program,Manual Therapy,Neuromuscular Re- education,Self-Care/Home Management,Therapeutic Activities,Therapeutic Exercises Modalities Cold Pack/Ice Massage,Electric Stimulation,Hot Packs Next Visit Focus/Plan Next Note Type Treatment Note Next Visit Plan Progress pt's strengthening ( hip abduction) and balance HEP Plan of Care Dates Plan of Care Start Date 11/19/22 Plan of Care End Date 01/28/23 Electronically Signed by: Bernadine Loredo, PT 11/21/22 9233 If you are in agreement with this Plan of Care, please return a signed and dated copy. I have reviewed this Plan of Care and certify that the skilled therapy services above are required to meet the patient?s needs. Physician Signature Date Printed Name and Credentials Clinical Instructor Signature Printed Name and Credentials
--- NOTE | 2022-11-21 15:22 | PT.OTN ---
Current Diagnoses Cerebral infarction, unspecified (11/21/22) Pain in right hip (11/21/22) Weakness (11/21/22) Physical Therapy Treatment Note PT-OP-A Visit Information Start: 11/13/22 14:20 Freq: Status: Active Protocol: Document 11/21/22 15:57 AMB (Rec: 11/21/22 16:05 AMB [id number]) Out-Patient Physical Therapy Visit Information Visit Information Visit Type Treatment Note Visit Start Time 14:30 Visit Stop Time 15:15 Total Visit Minutes 45 Visit Number 2 PT-OP-B Current Condition Start: 11/13/22 14:20 Freq: Status: Active Protocol: Document 11/19/22 09:04 AMB (Rec: 11/19/22 09:45 AMB [id number]) Current Condition History of Current Condition Onset Date 10/24 Current Complaints TIA History of Current Condition Pt had TIA with resultant L LE weaknes and numbness. No falls since returning home. Was able to d/c home with s/p acute care stay. recently diagnosed with Alzheimers. R hip pain increased because they took her off naproxen and thinks she is putting more weight on R leg due to L leg weakness. By the afternoon and cooking in the kitchen the hip pain really increases. Is trying to do yoga on the floor, does need UE support for her floor transfer. Enjoys hiking but has not been back to hiking since. Walking 15-20 minutes, but hip pain limits. Attends with single trekking pole in the R hand. Notices some numbness on plantar aspect of the left foot. Personal Factors Other Personal Factors That May Effect Heart valve replacement in 6/ Therapy/Recovery 11; septicemia in 2017, double mastectomy 2009 PT-OP-C Subjective Start: 11/13/22 14:20 Freq: Status: Active Protocol: Document 11/21/22 15:57 AMB (Rec: 11/21/22 16:05 AMB [id number]) OP-PT Subjective Patient Comments Patient Comments Pt states she has been doing her hip abd exercises going well, R hip isn't as painful as she has been since she has been focused on weightbearing through the left leg more. PT-OP-D Balance Start: 11/13/22 14:20 Freq: Status: Active Protocol: Document 11/19/22 09:00 AMB (Rec: 11/21/22 15:53 AMB [id number]) Balance Tests Single Limb Standing Single Limb- Right 3 Single Limb- Left 2 PT-OP-G Mobility & Gait Start: 11/13/22 14:20 Freq: Status: Active Protocol: Document 11/19/22 14:26 AMB (Rec: 11/21/22 14:32 AMB [id number]) OP Gait Assessment Comments Gait Comments Pt ambulates with trekking pole in R UE, trendelenburg gait pattern increases when not using AD. PT-OP-M Strength Start: 11/13/22 14:20 Freq: Status: Active Protocol: Document 11/19/22 09:04 AMB (Rec: 11/19/22 09:45 AMB [id number]) Hip Strength Hip Manual Muscle Testing Right Flexion (L2) 4+ Good+ Extension (S1) 4- Good- Abduction 4- Good- Left Flexion (L2) 4- Good- Extension (S1) 4 Good Abduction 4 Good Knee Strength Knee Manual Muscle Testing Right Flexion (S2) 4+ Good+ Extension (L3) 4+ Good+ Left Flexion (S2) 4 Good Extension (L3) 4 Good PT-OP-Q Treatments Start: 11/13/22 14:20 Freq: Status: Active Protocol: Document 11/21/22 14:30 AMB (Rec: 11/23/22 15:19 AMB [id number]) Gym Equipment Shuttle Recovery Bilateral Squats Resistance 50# Reps/Time 2x10 Shuttle Balance BLUE Reps/Duration 5 min Comments WBOS a/p with head turns (slow ) Therapeutic Exercises Supine Exercises IT band stretch Reps/Minutes 30x2 Sidelying Exercises clam Side bilateral Reps/Minutes 2x10 hip abd Sidelying Exercise Name SLR Side bilateral Reps/Minutes 2x10 Standing Exercises step ups Reps/Minutes 10 Comments int. UE suport mini lunges Reps/Minutes 2x10 Comments needed int UE support at rail mini squats Reps/Minutes 10 PT-OP-T Assessment and Plan Start: 11/13/22 14:20 Freq: Status: Active Protocol: Document 11/21/22 15:57 AMB (Rec: 11/21/22 16:05 AMB [id number]) Physical Therapy Assessment Goals Balance Jewelry Model Maker Goal (LTG) Aundrea will show improved balance by maintaining single leg stance for 5 seconds to help her return to her yoga practice. LTG Duration 8 weeks Three Impairment Gait Short Term Goal (STG) Aundrea will ambulate for 10 minutes without AD without trendelenburg gait over smooth terrain. STG Duration 4 weeks Jewelry Model Maker Goal (LTG) Aundrea will ambulate over uneven surfaces including grass, gravel, and curbs without antalgic gait and without loss of balance. LTG Duration 8 weeks Two Impairment Pain Short Term Goal (STG) Aundrea will ascend/descend a flight of stairs without hip pain. STG Duration 4 weeks One Impairment Strength Short Term Goal (STG) Aundrea will be independent with a HEP to improve her hip strength bilaterally. STG Duration 4 weeks Assessment Summary Assessment Pt not as coordinated with L LE, somewhat jerky movements noted with clam. Pt doing well with strengthening but L LE is weaker molly with hip abduction. Pt wants high level of balance return to return to hiking. Physical Therapy Plan Frequency and Duration Frequency of Treatment 2x/Week Duration of treatment (weeks) 10 Plan of Care Start Date 11/19/22 Plan of Care End Date 01/28/23 Therapeutic Interventions Therapeutic Interventions Balance Training,Gait Training ,Home Exercise Program,Manual Therapy,Neuromuscular Re- education,Self-Care/Home Management,Therapeutic Activities,Therapeutic Exercises Modalities Cold Pack/Ice Massage,Electric Stimulation,Hot Packs Next Visit Focus/Plan Next Note Type Treatment Note Next Visit Plan Progress pt's strengthening ( hip abduction) and balance HEP
--- NOTE | 2022-11-27 11:30 | PT.OTN ---
Current Diagnoses Cerebral infarction, unspecified (11/27/22) Pain in right hip (11/27/22) Weakness (11/27/22) Physical Therapy Treatment Note PT-OP-A Visit Information Start: 11/13/22 14:20 Freq: Status: Active Protocol: Document 11/27/22 10:49 SP (Rec: 11/27/22 11:43 SP [id number]) Out-Patient Physical Therapy Visit Information Visit Information Visit Type Treatment Note Visit Start Time 10:49 Visit Stop Time 11:30 Total Visit Minutes 41 Visit Number 3 Number of LABORER TIN CAN Visits 1 Precautions Precautions Pacemaker, osteoporosis PT-OP-B Current Condition Start: 11/13/22 14:20 Freq: Status: Active Protocol: Document 11/19/22 09:04 AMB (Rec: 11/19/22 09:45 AMB [id number]) Current Condition History of Current Condition Onset Date 10/24 Current Complaints TIA History of Current Condition Pt had TIA with resultant L LE weaknes and numbness. No falls since returning home. Was able to d/c home with s/p acute care stay. recently diagnosed with Alzheimers. R hip pain increased because they took her off naproxen and thinks she is putting more weight on R leg due to L leg weakness. By the afternoon and cooking in the kitchen the hip pain really increases. Is trying to do yoga on the floor, does need UE support for her floor transfer. Enjoys hiking but has not been back to hiking since. Walking 15-20 minutes, but hip pain limits. Attends with single trekking pole in the R hand. Notices some numbness on plantar aspect of the left foot. Personal Factors Other Personal Factors That May Effect Heart valve replacement in 6/ Therapy/Recovery 11; septicemia in 2017, double mastectomy 2009 PT-OP-C Subjective Start: 11/13/22 14:20 Freq: Status: Active Protocol: Document 11/27/22 10:49 SP (Rec: 11/27/22 11:43 SP [id number]) OP-PT Subjective Patient Comments Patient Comments Pt reports cradle of B hip and LB discomfort and tightness when get up in am, sit to long and arrival. Did Yoga warm up ROM before came. Pt states is taking medication for jt pain . PT-OP-D Balance Start: 11/13/22 14:20 Freq: Status: Active Protocol: Document 11/19/22 09:00 AMB (Rec: 11/21/22 15:53 AMB [id number]) Balance Tests Single Limb Standing Single Limb- Right 3 Single Limb- Left 2 PT-OP-G Mobility & Gait Start: 11/13/22 14:20 Freq: Status: Active Protocol: Document 11/19/22 14:26 AMB (Rec: 11/21/22 14:32 AMB [id number]) OP Gait Assessment Comments Gait Comments Pt ambulates with trekking pole in R UE, trendelenburg gait pattern increases when not using AD. PT-OP-M Strength Start: 11/13/22 14:20 Freq: Status: Active Protocol: Document 11/19/22 09:04 AMB (Rec: 11/19/22 09:45 AMB [id number]) Hip Strength Hip Manual Muscle Testing Right Flexion (L2) 4+ Good+ Extension (S1) 4- Good- Abduction 4- Good- Left Flexion (L2) 4- Good- Extension (S1) 4 Good Abduction 4 Good Knee Strength Knee Manual Muscle Testing Right Flexion (S2) 4+ Good+ Extension (L3) 4+ Good+ Left Flexion (S2) 4 Good Extension (L3) 4 Good PT-OP-Q Treatments Start: 11/13/22 14:20 Freq: Status: Active Protocol: Document 11/27/22 10:49 SP (Rec: 11/27/22 11:43 SP [id number]) Therapeutic Exercises Supine Exercises piriformis stretch Supine Exercise Name added to HEP Side bilateral Reps/Minutes 30 x2 Comments ankle over opp knee IT band stretch Supine Exercise Name HEP reviewed Side bilateral Equipment Used strap on foot, cross body Reps/Minutes 30x2 Comments hip toward table awareness w/ TA facilitation, L hip little sways Sidelying Exercises clam Sidelying Exercise Name HEP reviewed Side bilateral Reps/Minutes 2x10 alternating each side Comments good form and pacing hip abd Sidelying Exercise Name SLR HEP reviewed Side bilateral Resistance AROM Reps/Minutes 2x10 alternating each side Comments L little unsteady, improves with reps, TA fac Standing Exercises band walk Standing Exercise Name added to HEP Resistance TB #1 peach Reps/Minutes 20 ft x2 laps Comments cued elongated posture, DF and ft clear trail LE w/slow eccentric return step ups Standing Exercise Name HEP reviewed Equipment Used near rail but not needed 6/13 Reps/Minutes 10 each LE Comments slower pacing lead LLE mini lunges Standing Exercise Name HEP reviewed Side bilateral Equipment Used light 1 UE support, target rolled towel front back knee to bend toward Reps/Minutes 2x10 alternate Comments cued back knee straight down toward floor mini, good frt glut fac mini squats Standing Exercise Name HEP reviewed: eccentric squat taps Equipment Used arms cross chest, mesh chair Reps/Minutes 10 Comments occasional cue for knee with feet PT-OP-T Assessment and Plan Start: 11/13/22 14:20 Freq: Status: Active Protocol: Document 11/27/22 10:49 SP (Rec: 11/27/22 11:43 SP [id number]) Physical Therapy Assessment Goals Balance Head Chef Goal (LTG) Aundrea will show improved balance by maintaining single leg stance for 5 seconds to help her return to her yoga practice. LTG Duration 8 weeks Three Impairment Gait Short Term Goal (STG) Aundrea will ambulate for 10 minutes without AD without trendelenburg gait over smooth terrain. STG Duration 4 weeks Shelter Goal (LTG) Aundrea will ambulate over uneven surfaces including grass, gravel, and curbs without antalgic gait and without loss of balance. LTG Duration 8 weeks Two Impairment Pain Short Term Goal (STG) Aundrea will ascend/descend a flight of stairs without hip pain. STG Duration 4 weeks One Impairment Strength Short Term Goal (STG) Aundrea will be independent with a HEP to improve her hip strength bilaterally. STG Duration 4 weeks Assessment Summary Assessment Pt improved L hip stability control on side and added band walk today. Cues for TA for support, knee alignment with lunges. Physical Therapy Plan Frequency and Duration Frequency of Treatment 2x/Week Duration of treatment (weeks) 10 Plan of Care Start Date 11/19/22 Plan of Care End Date 01/28/23 Therapeutic Interventions Therapeutic Interventions Balance Training,Gait Training ,Home Exercise Program,Manual Therapy,Neuromuscular Re- education,Self-Care/Home Management,Therapeutic Activities,Therapeutic Exercises Modalities Cold Pack/Ice Massage,Electric Stimulation,Hot Packs Next Visit Focus/Plan Next Note Type Treatment Note Next Visit Plan Assess band walk added last tx . Progress pt's strengthening (hip abduction) and balance HEP
--- NOTE | 2022-11-29 09:45 | PT.OTN ---
Current Diagnoses Cerebral infarction, unspecified (11/29/22) Pain in right hip (11/29/22) Weakness (11/29/22) Physical Therapy Treatment Note PT-OP-A Visit Information Start: 11/13/22 14:20 Freq: Status: Active Protocol: Document 11/29/22 09:05 SP (Rec: 11/29/22 09:53 SP [id number]) Out-Patient Physical Therapy Visit Information Visit Information Visit Type Treatment Note Visit Start Time 09:05 Visit Stop Time 09:45 Total Visit Minutes 40 Visit Number 4 Number of FACILITY REHAB DIRECTOR Visits 2 Precautions Precautions Pacemaker, osteoporosis PT-OP-B Current Condition Start: 11/13/22 14:20 Freq: Status: Active Protocol: Document 11/19/22 09:04 AMB (Rec: 11/19/22 09:45 AMB [id number]) Current Condition History of Current Condition Onset Date 10/24 Current Complaints TIA History of Current Condition Pt had TIA with resultant L LE weaknes and numbness. No falls since returning home. Was able to d/c home with s/p acute care stay. recently diagnosed with Alzheimers. R hip pain increased because they took her off naproxen and thinks she is putting more weight on R leg due to L leg weakness. By the afternoon and cooking in the kitchen the hip pain really increases. Is trying to do yoga on the floor, does need UE support for her floor transfer. Enjoys hiking but has not been back to hiking since. Walking 15-20 minutes, but hip pain limits. Attends with single trekking pole in the R hand. Notices some numbness on plantar aspect of the left foot. Personal Factors Other Personal Factors That May Effect Heart valve replacement in 6/ Therapy/Recovery 11; septicemia in 2017, double mastectomy 2009 PT-OP-C Subjective Start: 11/13/22 14:20 Freq: Status: Active Protocol: Document 11/29/22 09:05 SP (Rec: 11/29/22 09:53 SP [id number]) OP-PT Subjective Patient Comments Patient Comments Pt is taking Tylenol for pain/ achiness support, molly pre PT for now. She states good feedback muscle support with HEP. She notices tight and stretching helping. She was walking on [employer] w/ use trek pole. 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 PT-OP-D Balance Start: 11/13/22 14:20 Freq: Status: Active Protocol: Document 11/19/22 09:00 AMB (Rec: 11/21/22 15:53 AMB [id number]) Balance Tests Single Limb Standing Single Limb- Right 3 Single Limb- Left 2 PT-OP-G Mobility & Gait Start: 11/13/22 14:20 Freq: Status: Active Protocol: Document 11/19/22 14:26 AMB (Rec: 11/21/22 14:32 AMB [id number]) OP Gait Assessment Comments Gait Comments Pt ambulates with trekking pole in R UE, trendelenburg gait pattern increases when not using AD. PT-OP-M Strength Start: 11/13/22 14:20 Freq: Status: Active Protocol: Document 11/19/22 09:04 AMB (Rec: 11/19/22 09:45 AMB [id number]) Hip Strength Hip Manual Muscle Testing Right Flexion (L2) 4+ Good+ Extension (S1) 4- Good- Abduction 4- Good- Left Flexion (L2) 4- Good- Extension (S1) 4 Good Abduction 4 Good Knee Strength Knee Manual Muscle Testing Right Flexion (S2) 4+ Good+ Extension (L3) 4+ Good+ Left Flexion (S2) 4 Good Extension (L3) 4 Good PT-OP-Q Treatments Start: 11/13/22 14:20 Freq: Status: Active Protocol: Document 11/29/22 09:05 SP (Rec: 11/29/22 09:53 SP [id number]) Therapeutic Exercises Standing Exercises band walk Standing Exercise Name reviewed HEP: lateral, f/b Resistance TB #1 peach Reps/Minutes 20 ft x2 laps each Comments cued elongated posture, DF and ft clear trail LE w/slow eccentric return step ups Standing Exercise Name HEP reviewed Side bilateral Equipment Used near rail but not needed 6/13 Reps/Minutes 10 each LE Comments cued slower pacing and soft/ quiet stepping, less momentum with reps mini lunges Standing Exercise Name HEP reviewed Side bilateral Equipment Used light 1 UE support, target rolled towel front back knee to bend toward Reps/Minutes 2x10 alternate Comments cued back knee straight down toward floor mini, good frt glut fac mini squats Standing Exercise Name HEP reviewed: eccentric squat taps Equipment Used arms cross chest, mesh chair Reps/Minutes 10 Comments occasional cue for knee with feet Other Exercises self STMs Other Exercise Name initiated use ball wall: glut, ES, theracane: quad, ITB, calf, HS Side bilateral Reps/Minutes 8 min Comments good feedback response for self home Neuro Re-Education Treatment Balance Activities hurdles Details 6 hurdles Surface near rail hover hand Reps/Duration 4 laps Comments step to> alternating. Cues elongation, core, increase SHASHI, soft stepping improved stability (add foam next tx) PT-OP-T Assessment and Plan Start: 11/13/22 14:20 Freq: Status: Active Protocol: Document 11/29/22 09:05 SP (Rec: 11/29/22 09:53 SP [id number]) Physical Therapy Assessment Goals Balance Halfway Goal (LTG) Aundrea will show improved balance by maintaining single leg stance for 5 seconds to help her return to her yoga practice. LTG Duration 8 weeks Three Impairment Gait Short Term Goal (STG) Aundrea will ambulate for 10 minutes without AD without trendelenburg gait over smooth terrain. STG Duration 4 weeks Halfway Goal (LTG) Aundrea will ambulate over uneven surfaces including grass, gravel, and curbs without antalgic gait and without loss of balance. LTG Duration 8 weeks Two Impairment Pain Short Term Goal (STG) Aundrea will ascend/descend a flight of stairs without hip pain. STG Duration 4 weeks One Impairment Strength Short Term Goal (STG) Aundrea will be independent with a HEP to improve her hip strength bilaterally. STG Duration 4 weeks Assessment Summary Assessment Pt improved glut, core and alignment corrections with cues for posturing. Pt able to alternate stepping this tx and softer stepping with step up/downs today with less momentum, more glut drive lift . Pt arrived with trek pole, discussed use community and uneven surfaces good carryover level pelvis stability. Physical Therapy Plan Frequency and Duration Frequency of Treatment 2x/Week Duration of treatment (weeks) 10 Plan of Care Start Date 11/19/22 Plan of Care End Date 01/28/23 Therapeutic Interventions Therapeutic Interventions Balance Training,Gait Training ,Home Exercise Program,Manual Therapy,Neuromuscular Re- education,Self-Care/Home Management,Therapeutic Activities,Therapeutic Exercises Modalities Cold Pack/Ice Massage,Electric Stimulation,Hot Packs Next Visit Focus/Plan Next Note Type Treatment Note Next Visit Plan COntinue uneven hurdles next tx. Add shuttle balance. POC: Progress pt's strengthening (hip abduction) and balance HEP
--- NOTE | 2022-12-03 14:27 | PT.OTN ---
Current Diagnoses Cerebral infarction, unspecified (12/03/22) Pain in right hip (12/03/22) Weakness (12/03/22) Physical Therapy Treatment Note PT-OP-A Visit Information Start: 11/13/22 14:20 Freq: Status: Active Protocol: Document 12/03/22 13:33 AMB (Rec: 12/03/22 14:27 AMB [id number]) Out-Patient Physical Therapy Visit Information Visit Information Visit Type Treatment Note Visit Start Time 13:35 Visit Stop Time 14:15 Total Visit Minutes 40 Visit Number 5 PT-OP-B Current Condition Start: 11/13/22 14:20 Freq: Status: Active Protocol: Document 11/19/22 09:04 AMB (Rec: 11/19/22 09:45 AMB [id number]) Current Condition History of Current Condition Onset Date 10/24 Current Complaints TIA History of Current Condition Pt had TIA with resultant L LE weaknes and numbness. No falls since returning home. Was able to d/c home with s/p acute care stay. recently diagnosed with Alzheimers. R hip pain increased because they took her off naproxen and thinks she is putting more weight on R leg due to L leg weakness. By the afternoon and cooking in the kitchen the hip pain really increases. Is trying to do yoga on the floor, does need UE support for her floor transfer. Enjoys hiking but has not been back to hiking since. Walking 15-20 minutes, but hip pain limits. Attends with single trekking pole in the R hand. Notices some numbness on plantar aspect of the left foot. Personal Factors Other Personal Factors That May Effect Heart valve replacement in 6/ Therapy/Recovery 11; septicemia in 2017, double mastectomy 2009 PT-OP-C Subjective Start: 11/13/22 14:20 Freq: Status: Active Protocol: Document 12/03/22 13:33 AMB (Rec: 12/03/22 14:27 AMB [id number]) OP-PT Subjective Patient Comments Patient Comments Pt is noticing improvement with strength, but continuing have pain. Doing exercises well. PT-OP-D Balance Start: 11/13/22 14:20 Freq: Status: Active Protocol: Document 11/19/22 09:00 AMB (Rec: 11/21/22 15:53 AMB [id number]) Balance Tests Single Limb Standing Single Limb- Right 3 Single Limb- Left 2 PT-OP-G Mobility & Gait Start: 11/13/22 14:20 Freq: Status: Active Protocol: Document 11/19/22 14:26 AMB (Rec: 11/21/22 14:32 AMB [id number]) OP Gait Assessment Comments Gait Comments Pt ambulates with trekking pole in R UE, trendelenburg gait pattern increases when not using AD. PT-OP-M Strength Start: 11/13/22 14:20 Freq: Status: Active Protocol: Document 11/19/22 09:04 AMB (Rec: 11/19/22 09:45 AMB [id number]) Hip Strength Hip Manual Muscle Testing Right Flexion (L2) 4+ Good+ Extension (S1) 4- Good- Abduction 4- Good- Left Flexion (L2) 4- Good- Extension (S1) 4 Good Abduction 4 Good Knee Strength Knee Manual Muscle Testing Right Flexion (S2) 4+ Good+ Extension (L3) 4+ Good+ Left Flexion (S2) 4 Good Extension (L3) 4 Good PT-OP-Q Treatments Start: 11/13/22 14:20 Freq: Status: Active Protocol: Document 12/03/22 13:33 AMB (Rec: 12/03/22 14:27 AMB [id number]) Gym Equipment Shuttle Recovery Bilateral Squats Resistance 50# Reps/Time 2x10 Shuttle Balance BLUE Reps/Duration 10 min Comments WBOS a/p with head turns (slow ) m/l : mini squats cue hips back posture Therapeutic Exercises Supine Exercises piriformis stretch Supine Exercise Name added to HEP Side bilateral Reps/Minutes 30 x2 Comments ankle over opp knee Sidelying Exercises clam Sidelying Exercise Name HEP reviewed Side bilateral Reps/Minutes 2x10 alternating each side Comments good form and pacing hip abd Sidelying Exercise Name SLR HEP reviewed Side bilateral Resistance AROM Reps/Minutes 2x10 alternating each side Comments L little unsteady, improves with reps, TA fac Sitting Exercises ankle ABCs Sitting Exercise Name with L LE for proprioception Standing Exercises lateral lunge Standing Exercise Name at rail cue avoid knee in front of knee Reps/Minutes 10 step ups Standing Exercise Name HEP reviewed Side bilateral Reps/Minutes 10 each LE Comments cued slower pacing and soft/ quiet stepping, less momentum with reps mini lunges Standing Exercise Name HEP reviewed Side bilateral Equipment Used light 1 UE support, target rolled towel front back knee to bend toward Reps/Minutes 2x10 alternate Comments cued back knee straight down toward floor mini, good frt glut fac mini squats Standing Exercise Name HEP reviewed: eccentric squat taps Equipment Used arms cross chest, mesh chair Reps/Minutes 10 Comments occasional cue for knee with feet Neuro Re-Education Treatment Balance Activities hurdles Details 6 hurdles Reps/Duration 4 laps Comments step to> alternating. Cues elongation, core, increase SHASHI, soft stepping improved stability forward and lateral stepping-lateral stepping challenging (add foam next tx) PT-OP-T Assessment and Plan Start: 11/13/22 14:20 Freq: Status: Active Protocol: Document 12/03/22 13:33 AMB (Rec: 12/03/22 14:27 AMB [id number]) Physical Therapy Assessment Goals Balance Group Home Goal (LTG) Aundrea will show improved balance by maintaining single leg stance for 5 seconds to help her return to her yoga practice. LTG Duration 8 weeks Three Impairment Gait Short Term Goal (STG) Aundrea will ambulate for 10 minutes without AD without trendelenburg gait over smooth terrain. STG Duration 4 weeks Freight Shipping Agent Goal (LTG) Aundrea will ambulate over uneven surfaces including grass, gravel, and curbs without antalgic gait and without loss of balance. LTG Duration 8 weeks Two Impairment Pain Short Term Goal (STG) Aundrea will ascend/descend a flight of stairs without hip pain. STG Duration 4 weeks One Impairment Strength Short Term Goal (STG) Aundrea will be independent with a HEP to improve her hip strength bilaterally. STG Duration 4 weeks Assessment Summary Assessment Pt struggled with ankle ABCs and overall knowing where L foot is in space. Did well with lateral lunges. Consider printed handout of both at next visit if needed. Physical Therapy Plan Frequency and Duration Frequency of Treatment 2x/Week Duration of treatment (weeks) 10 Plan of Care Start Date 11/19/22 Plan of Care End Date 01/28/23 Therapeutic Interventions Therapeutic Interventions Balance Training,Gait Training ,Home Exercise Program,Manual Therapy,Neuromuscular Re- education,Self-Care/Home Management,Therapeutic Activities,Therapeutic Exercises Modalities Cold Pack/Ice Massage,Electric Stimulation,Hot Packs Next Visit Focus/Plan Next Note Type Treatment Note Next Visit Plan Review ankle ABCs (for proprioception) and lateral lunges. COntinue uneven hurdles next tx. Add shuttle balance. POC: Progress pt's strengthening (hip abduction) and balance HEP
--- NOTE | 2022-12-05 10:47 | PT.OTN ---
Current Diagnoses Cerebral infarction, unspecified (12/05/22) Pain in right hip (12/05/22) Weakness (12/05/22) Physical Therapy Treatment Note PT-OP-A Visit Information Start: 11/13/22 14:20 Freq: Status: Active Protocol: Document 12/05/22 10:02 SP (Rec: 12/05/22 10:47 SP [id number]) Out-Patient Physical Therapy Visit Information Visit Information Visit Type Treatment Note Visit Start Time 10:02 Visit Stop Time 10:47 Total Visit Minutes 45 Visit Number 6 Number of BALER OPERATOR Visits 1 Precautions Precautions Pacemaker, osteoporosis PT-OP-B Current Condition Start: 11/13/22 14:20 Freq: Status: Active Protocol: Document 11/19/22 09:04 AMB (Rec: 11/19/22 09:45 AMB [id number]) Current Condition History of Current Condition Onset Date 10/24 Current Complaints TIA History of Current Condition Pt had TIA with resultant L LE weaknes and numbness. No falls since returning home. Was able to d/c home with s/p acute care stay. recently diagnosed with Alzheimers. R hip pain increased because they took her off naproxen and thinks she is putting more weight on R leg due to L leg weakness. By the afternoon and cooking in the kitchen the hip pain really increases. Is trying to do yoga on the floor, does need UE support for her floor transfer. Enjoys hiking but has not been back to hiking since. Walking 15-20 minutes, but hip pain limits. Attends with single trekking pole in the R hand. Notices some numbness on plantar aspect of the left foot. Personal Factors Other Personal Factors That May Effect Heart valve replacement in 6/ Therapy/Recovery 11; septicemia in 2017, double mastectomy 2009 PT-OP-C Subjective Start: 11/13/22 14:20 Freq: Status: Active Protocol: Document 12/05/22 10:02 SP (Rec: 12/05/22 10:47 SP [id number]) OP-PT Subjective Patient Comments Patient Comments Pt reports takes Tylenol 8 am and later dinner time to help with pain during daily acitivies. Usually B hips but lately more across posterior pelvic girdle and remembered talking about core strenthening to support back and wanting more to know/ perform to help support and less/rid back pain. Is compliant with stretching and other exercises given. She states is walking about 2-30 min daily with B trek poles. She is doing more ADLs baking, planting and finds doing better. PT-OP-D Balance Start: 11/13/22 14:20 Freq: Status: Active Protocol: Document 11/19/22 09:00 AMB (Rec: 11/21/22 15:53 AMB [id number]) Balance Tests Single Limb Standing Single Limb- Right 3 Single Limb- Left 2 PT-OP-G Mobility & Gait Start: 11/13/22 14:20 Freq: Status: Active Protocol: Document 11/19/22 14:26 AMB (Rec: 11/21/22 14:32 AMB [id number]) OP Gait Assessment Comments Gait Comments Pt ambulates with trekking pole in R UE, trendelenburg gait pattern increases when not using AD. PT-OP-M Strength Start: 11/13/22 14:20 Freq: Status: Active Protocol: Document 11/19/22 09:04 AMB (Rec: 11/19/22 09:45 AMB [id number]) Hip Strength Hip Manual Muscle Testing Right Flexion (L2) 4+ Good+ Extension (S1) 4- Good- Abduction 4- Good- Left Flexion (L2) 4- Good- Extension (S1) 4 Good Abduction 4 Good Knee Strength Knee Manual Muscle Testing Right Flexion (S2) 4+ Good+ Extension (L3) 4+ Good+ Left Flexion (S2) 4 Good Extension (L3) 4 Good PT-OP-Q Treatments Start: 11/13/22 14:20 Freq: Status: Active Protocol: Document 12/05/22 10:02 SP (Rec: 12/05/22 10:47 SP [id number]) Gym Equipment Shuttle Recovery unilateral squat Resistance 25 # (new) Reps/Time x10 each LE Bilateral Squats Details cued knees more abd // Resistance 50# (2 new) Reps/Time 2x12 reps Therapeutic Exercises Supine Exercises bug Supine Exercise Name added to HEP Side bilateral Resistance AROM Reps/Minutes 3, 5 reps each side Comments cued TA toward floor, range able with good spinal support- good response resisted bridge Supine Exercise Name addd to HEP Resistance TB #2 around knees & over pelvis anchored w/ BUE at table Reps/Minutes 10 SH x5 reps Comments cued WB B feet & across shld, Sitting Exercises piriformis stretch Sitting Exercise Name added to HEP- Side bilateral Reps/Minutes 30 x2 Comments good reponse, perform before get up dec stiffness ankle ABCs Sitting Exercise Name with L LE for proprioception Comments cued just ankle, good slow ROM strength emphasis Standing Exercises lateral lunge Standing Exercise Name at rail cue avoid knee in front of knee Reps/Minutes 10 Other Exercises self STMs Other Exercise Name use small ball under foot self massage, arch lift Side bilateral Reps/Minutes 8 min Comments good feedback response for self home Neuro Re-Education Treatment Balance Activities SLS Details next PT-OP-T Assessment and Plan Start: 11/13/22 14:20 Freq: Status: Active Protocol: Document 12/05/22 10:02 SP (Rec: 12/05/22 10:47 SP [id number]) Physical Therapy Assessment Goals Balance Fci Goal (LTG) Aundrea will show improved balance by maintaining single leg stance for 5 seconds to help her return to her yoga practice. LTG Duration 8 weeks Three Impairment Gait Short Term Goal (STG) Aundrea will ambulate for 10 minutes without AD without trendelenburg gait over smooth terrain. STG Duration 4 weeks Package Wrapper Goal (LTG) Aundrea will ambulate over uneven surfaces including grass, gravel, and curbs without antalgic gait and without loss of balance. LTG Duration 8 weeks Two Impairment Pain Short Term Goal (STG) Aundrea will ascend/descend a flight of stairs without hip pain. STG Duration 4 weeks One Impairment Strength Short Term Goal (STG) Aundrea will be independent with a HEP to improve her hip strength bilaterally. STG Duration 4 weeks Assessment Summary Assessment Pt improved core fac and reports back feels better post added bug and resisted bridge this tx. Cues for knee alignment positioning during lateral lunges while mindful hip hinge SHASHI stability better hip abd fac response. Improved L ankle AROM control with cues slower pacing and maintain hip straight forward, good carryover foot clearance /placement during lateral lunges. Physical Therapy Plan Frequency and Duration Frequency of Treatment 2x/Week Duration of treatment (weeks) 10 Plan of Care Start Date 11/19/22 Plan of Care End Date 01/28/23 Therapeutic Interventions Therapeutic Interventions Balance Training,Gait Training ,Home Exercise Program,Manual Therapy,Neuromuscular Re- education,Self-Care/Home Management,Therapeutic Activities,Therapeutic Exercises Modalities Cold Pack/Ice Massage,Electric Stimulation,Hot Packs Next Visit Focus/Plan Next Note Type Treatment Note Next Visit Plan Review ankle ABCs (for proprioception) and lateral lunges, piriformis stretch and supine core bridge and bug with back response spinal alignment/bracing support. COntinue uneven hurdles next tx. Add shuttle balance. POC: Progress pt's strengthening (hip abduction) and balance HEP
--- NOTE | 2022-12-10 12:45 | PT.OTN ---
Current Diagnoses Cerebral infarction, unspecified (12/10/22) Pain in right hip (12/10/22) Weakness (12/10/22) Physical Therapy Treatment Note PT-OP-A Visit Information Start: 11/13/22 14:20 Freq: Status: Active Protocol: Document 12/10/22 12:00 SP (Rec: 12/10/22 12:50 SP [id number]) Out-Patient Physical Therapy Visit Information Visit Information Visit Type Treatment Note Visit Start Time 12:00 Visit Stop Time 12:45 Total Visit Minutes 45 Visit Number 7 Number of ELECTRONIC ENGINEERING DRAFTSPERSON Visits 2 Precautions Precautions Pacemaker, osteoporosis PT-OP-B Current Condition Start: 11/13/22 14:20 Freq: Status: Active Protocol: Document 11/19/22 09:04 AMB (Rec: 11/19/22 09:45 AMB [id number]) Current Condition History of Current Condition Onset Date 10/24 Current Complaints TIA History of Current Condition Pt had TIA with resultant L LE weaknes and numbness. No falls since returning home. Was able to d/c home with s/p acute care stay. recently diagnosed with Alzheimers. R hip pain increased because they took her off naproxen and thinks she is putting more weight on R leg due to L leg weakness. By the afternoon and cooking in the kitchen the hip pain really increases. Is trying to do yoga on the floor, does need UE support for her floor transfer. Enjoys hiking but has not been back to hiking since. Walking 15-20 minutes, but hip pain limits. Attends with single trekking pole in the R hand. Notices some numbness on plantar aspect of the left foot. Personal Factors Other Personal Factors That May Effect Heart valve replacement in 6/ Therapy/Recovery 11; septicemia in 2017, double mastectomy 2009 PT-OP-C Subjective Start: 11/13/22 14:20 Freq: Status: Active Protocol: Document 12/10/22 12:00 SP (Rec: 12/10/22 12:50 SP [id number]) OP-PT Subjective Patient Comments Patient Comments Pt reports hasn't been able to walk lately due to B hip pain , almost cancelled today's appt but thought might be able help. She tried stretching and helps but the hips persistant. PT-OP-D Balance Start: 11/13/22 14:20 Freq: Status: Active Protocol: Document 11/19/22 09:00 AMB (Rec: 11/21/22 15:53 AMB [id number]) Balance Tests Single Limb Standing Single Limb- Right 3 Single Limb- Left 2 PT-OP-G Mobility & Gait Start: 11/13/22 14:20 Freq: Status: Active Protocol: Document 11/19/22 14:26 AMB (Rec: 11/21/22 14:32 AMB [id number]) OP Gait Assessment Comments Gait Comments Pt ambulates with trekking pole in R UE, trendelenburg gait pattern increases when not using AD. PT-OP-M Strength Start: 11/13/22 14:20 Freq: Status: Active Protocol: Document 11/19/22 09:04 AMB (Rec: 11/19/22 09:45 AMB [id number]) Hip Strength Hip Manual Muscle Testing Right Flexion (L2) 4+ Good+ Extension (S1) 4- Good- Abduction 4- Good- Left Flexion (L2) 4- Good- Extension (S1) 4 Good Abduction 4 Good Knee Strength Knee Manual Muscle Testing Right Flexion (S2) 4+ Good+ Extension (L3) 4+ Good+ Left Flexion (S2) 4 Good Extension (L3) 4 Good PT-OP-Q Treatments Start: 11/13/22 14:20 Freq: Status: Active Protocol: Document 12/10/22 12:00 SP (Rec: 12/10/22 12:50 SP [id number]) Therapeutic Exercises Supine Exercises gael stretch Supine Exercise Name added HEP Side bilateral Equipment Used KTC opp side Reps/Minutes 30 x2 Comments good feedback anterior hip stretch bug Supine Exercise Name reviewed HEP Side bilateral Resistance AROM Equipment Used LLE little wavering weakness Reps/Minutes 5 reps each side Comments cued TA toward floor, range able with good spinal support- good response resisted bridge Supine Exercise Name reviewed HEP Resistance TB #2 around knees & over pelvis anchored w/ BUE at table Reps/Minutes 10 SH x5 reps Comments cued WB B feet & across shld, piriformis stretch Supine Exercise Name added to HEP Side bilateral Reps/Minutes 30 x2 Comments ankle over opp knee Sitting Exercises lumbar flexion Sitting Exercise Name added to HEP Side bilateral Reps/Minutes 2-3 breath hold stretch SH each position x2 Comments fwd and lateral over each LE- good feedback back stretch piriformis stretch Sitting Exercise Name reviewed HEP- Side bilateral Reps/Minutes 30 x2 Comments good reponse, perform before get up dec stiffness Standing Exercises mini lunges Standing Exercise Name HEP reviewed Side bilateral Equipment Used light 1 UE support, target rolled towel front back knee to bend toward Reps/Minutes 2x10 alternate Comments cued back knee straight down toward floor mini, good frt glut fac mini squats Standing Exercise Name HEP reviewed: eccentric squat taps Equipment Used arms cross chest, mesh chair Reps/Minutes 10 Comments occasional cue for knee with feet Manual Therapy Treatment Soft Tissue Mobilization back Body Location QL, distal ES & paraspinals Mobilization Type Myofascial Release,Strumming Intensity/Depth Moderate Body Position Sidelying Comments manual and discussion use ball on wall self STMs- next tx perform and response. hips Body Location B TFL, glut med, ITB Mobilization Type Myofascial Release,Strumming Intensity/Depth Moderate Body Position Sidelying Comments manual and discussion use ball on wall self STMs- next tx perform and response. Joint Mobilizations hip jt Joint B piriformis stretch positioning w/ inferolateral glide- good feedback Grade II Body Position Hooklying Reps/Duration 6 min total B Comments Good feedback deeper hip stretch can't get at home with piriformis stretch. Demo'd end tx but not time for pt apply. See HO provided. PT-OP-T Assessment and Plan Start: 11/13/22 14:20 Freq: Status: Active Protocol: Document 12/10/22 12:00 SP (Rec: 12/10/22 12:50 SP [id number]) Physical Therapy Assessment Goals Balance Pick And Shovel Worker Goal (LTG) Aundrea will show improved balance by maintaining single leg stance for 5 seconds to help her return to her yoga practice. LTG Duration 8 weeks Three Impairment Gait Short Term Goal (STG) Aundrea will ambulate for 10 minutes without AD without trendelenburg gait over smooth terrain. STG Duration 4 weeks Pick And Shovel Worker Goal (LTG) Aundrea will ambulate over uneven surfaces including grass, gravel, and curbs without antalgic gait and without loss of balance. LTG Duration 8 weeks Two Impairment Pain Short Term Goal (STG) Aundrea will ascend/descend a flight of stairs without hip pain. STG Duration 4 weeks One Impairment Strength Short Term Goal (STG) Aundrea will be independent with a HEP to improve her hip strength bilaterally. STG Duration 4 weeks Assessment Summary Assessment Pt good feedback response to manual and ed how apply at home carryover ball wall and use strap discussion and ELECTRONIC ENGINEERING DRAFTSPERSON demonstration. Next tx review pt demonstrate with HO support . Pt good form during seated lumbar stretch and piriformis stretch for self application when upright activities, alternative to laying down when needed. She stated moving better end tx and koko has self carryover to help at home when needed, nata perform HEP with time allotted end tx. Physical Therapy Plan Frequency and Duration Frequency of Treatment 2x/Week Duration of treatment (weeks) 10 Plan of Care Start Date 11/19/22 Plan of Care End Date 01/28/23 Therapeutic Interventions Therapeutic Interventions Balance Training,Gait Training ,Home Exercise Program,Manual Therapy,Neuromuscular Re- education,Self-Care/Home Management,Therapeutic Activities,Therapeutic Exercises Modalities Cold Pack/Ice Massage,Electric Stimulation,Hot Packs Next Visit Focus/Plan Next Note Type Treatment Note Next Visit Plan Review stretching, self hip mob w/ strap for carry home. REview HEP: ankle ABC, core bug, stretching, standing hip/core strengthening. COntinue uneven hurdles next tx. Add shuttle balance. POC: Progress pt's strengthening (hip abduction) and balance HEP
--- NOTE | 2022-12-12 10:45 | PT.OTN ---
Current Diagnoses Cerebral infarction, unspecified (12/12/22) Pain in right hip (12/12/22) Weakness (12/12/22) Physical Therapy Treatment Note PT-OP-A Visit Information Start: 11/13/22 14:20 Freq: Status: Active Protocol: Document 12/12/22 10:04 SP (Rec: 12/12/22 10:48 SP [id number]) Out-Patient Physical Therapy Visit Information Visit Information Visit Type Treatment Note Visit Start Time 10:04 Visit Stop Time 10:45 Total Visit Minutes 41 Visit Number 8 Number of SAND CARRIER Visits 3 Precautions Precautions Pacemaker, osteoporosis PT-OP-B Current Condition Start: 11/13/22 14:20 Freq: Status: Active Protocol: Document 11/19/22 09:04 AMB (Rec: 11/19/22 09:45 AMB [id number]) Current Condition History of Current Condition Onset Date 10/24 Current Complaints TIA History of Current Condition Pt had TIA with resultant L LE weaknes and numbness. No falls since returning home. Was able to d/c home with s/p acute care stay. recently diagnosed with Alzheimers. R hip pain increased because they took her off naproxen and thinks she is putting more weight on R leg due to L leg weakness. By the afternoon and cooking in the kitchen the hip pain really increases. Is trying to do yoga on the floor, does need UE support for her floor transfer. Enjoys hiking but has not been back to hiking since. Walking 15-20 minutes, but hip pain limits. Attends with single trekking pole in the R hand. Notices some numbness on plantar aspect of the left foot. Personal Factors Other Personal Factors That May Effect Heart valve replacement in 6/ Therapy/Recovery 11; septicemia in 2017, double mastectomy 2009 PT-OP-C Subjective Start: 11/13/22 14:20 Freq: Status: Active Protocol: Document 12/12/22 10:04 SP (Rec: 12/12/22 10:48 SP [id number]) OP-PT Subjective Patient Comments Patient Comments Pt reports messaged physician stretches and massage learned last tx helping but LB and R hip still painful lately. She states worse later day after lots activities. PT-OP-D Balance Start: 11/13/22 14:20 Freq: Status: Active Protocol: Document 11/19/22 09:00 AMB (Rec: 11/21/22 15:53 AMB [id number]) Balance Tests Single Limb Standing Single Limb- Right 3 Single Limb- Left 2 PT-OP-G Mobility & Gait Start: 11/13/22 14:20 Freq: Status: Active Protocol: Document 11/19/22 14:26 AMB (Rec: 11/21/22 14:32 AMB [id number]) OP Gait Assessment Comments Gait Comments Pt ambulates with trekking pole in R UE, trendelenburg gait pattern increases when not using AD. PT-OP-M Strength Start: 11/13/22 14:20 Freq: Status: Active Protocol: Document 11/19/22 09:04 AMB (Rec: 11/19/22 09:45 AMB [id number]) Hip Strength Hip Manual Muscle Testing Right Flexion (L2) 4+ Good+ Extension (S1) 4- Good- Abduction 4- Good- Left Flexion (L2) 4- Good- Extension (S1) 4 Good Abduction 4 Good Knee Strength Knee Manual Muscle Testing Right Flexion (S2) 4+ Good+ Extension (L3) 4+ Good+ Left Flexion (S2) 4 Good Extension (L3) 4 Good PT-OP-Q Treatments Start: 11/13/22 14:20 Freq: Status: Active Protocol: Document 12/12/22 10:04 SP (Rec: 12/12/22 10:48 SP [id number]) Therapeutic Exercises Supine Exercises fig 4 Supine Exercise Name review self found to do Resistance R>L Reps/Minutes 60 w/ breath- better stretch TFL Comments better stretch than if in hooklying resisted bridge Supine Exercise Name not performed, verbal reviwe not use TB Resistance TB #2 around knees & over pelvis anchored w/ BUE at table Reps/Minutes 10 SH x5 reps Comments cued WB B feet & across shld, piriformis stretch Supine Exercise Name reviewed HEP Side bilateral Equipment Used ankle over opp knee Reps/Minutes 60 Comments good feedback stretch post side hip abd ex IT band stretch Supine Exercise Name HEP reviewed Side bilateral Equipment Used strap on foot, cross body Reps/Minutes 30x2 Comments good feedback stretch Sidelying Exercises clam Sidelying Exercise Name HEP reviewed Side bilateral Resistance AROM> #2 loop at thigh Reps/Minutes 3x5 reps, 20 sec rest between sets Comments good form and pacing, muscle tiring work- little shaky hip abd Sidelying Exercise Name SLR HEP reviewed Side bilateral Resistance AROM Reps/Minutes x10 reps each side Comments improved LLE stability this tx with slow pacing, good TA Other Exercises child's pose Other Exercise Name reviewed self HEP from YOGA known Reps/Minutes 30 Gait Training Gait Activity stairs Description asc/desc Device Used 1 HR light PRN Distance/Duration 4 x3 sets stairs Treatment Focus glut and hip abd drive, Manual Therapy Treatment Joint Mobilizations hip jt Joint R piriformis stretch positioning w/ inferolateral glide- good feedback Grade II Body Position Hooklying Comments Good feedback deeper hip stretch can't get at home with piriformis stretch. Reviewed performance self application strap anchored at table. Manual Traction Lumbar Comments w/ strap at calves MWM pelvic tilts Neuro Re-Education Treatment Balance Activities SLS Details trialed Comments LLE 5 sec, RLE 13 sec Cued elongation, TA, TKE but not locked- improved time PT-OP-T Assessment and Plan Start: 11/13/22 14:20 Freq: Status: Active Protocol: Document 12/12/22 10:04 SP (Rec: 12/12/22 10:48 SP [id number]) Physical Therapy Assessment Goals Balance Intermediate Goal (LTG) Aundrea will show improved balance by maintaining single leg stance for 5 seconds to help her return to her yoga practice. 12/12/22: progressin sec LLE, 13 sec RLE LTG Duration 8 weeks progressing 12/12 Three Impairment Gait Short Term Goal (STG) Aundrea will ambulate for 10 minutes without AD without trendelenburg gait over smooth terrain. STG Duration 4 weeks Intermediate Goal (LTG) Aundrea will ambulate over uneven surfaces including grass, gravel, and curbs without antalgic gait and without loss of balance. LTG Duration 8 weeks Two Impairment Pain Short Term Goal (STG) Aundrea will ascend/descend a flight of stairs without hip pain. 12/12/22: progressing: yesterday alot low back R>L hip cleft pain, post manual today, light contact rail for safety support as needed. STG Duration 4 weeks progressing 12/12/22 One Impairment Strength Short Term Goal (STG) Aundrea will be independent with a HEP to improve her hip strength bilaterally. STG Duration 4 weeks Assessment Summary Assessment Pt walking better post manual, stretching and reintroduced hip abd ther ex, improved R glut drive and less lateral wt shift gait leaving. Pt reports hip feel better. Physical Therapy Plan Frequency and Duration Frequency of Treatment 2x/Week Duration of treatment (weeks) 10 Plan of Care Start Date 11/19/22 Plan of Care End Date 01/28/23 Therapeutic Interventions Therapeutic Interventions Balance Training,Gait Training ,Home Exercise Program,Manual Therapy,Neuromuscular Re- education,Self-Care/Home Management,Therapeutic Activities,Therapeutic Exercises Modalities Cold Pack/Ice Massage,Electric Stimulation,Hot Packs Next Visit Focus/Plan Next Note Type Treatment Note Next Visit Plan PN in 2 visits Review stretching, self hip mob w/ strap for carry home. REview HEP: ankle ABC, core bug, stretching, standing hip/core strengthening. COntinue uneven hurdles next tx. Add shuttle balance. POC: Progress pt's strengthening (hip abduction) and balance HEP
--- NOTE | 2022-12-20 15:47 | PT.OTN ---
Current Diagnoses Cerebral infarction, unspecified (12/20/22) Pain in right hip (12/20/22) Weakness (12/20/22) Physical Therapy Treatment Note PT-OP-A Visit Information Start: 11/13/22 14:20 Freq: Status: Active Protocol: Document 12/20/22 11:51 ES (Rec: 12/20/22 15:47 ES [id number]) Out-Patient Physical Therapy Visit Information Visit Information Visit Type Treatment Note Visit Start Time 11:51 Visit Stop Time 12:33 Total Visit Minutes 42 Visit Number 9 Number of REPLANTING MACHINE CREW Visits 0 Precautions Precautions Pacemaker, osteoporosis PT-OP-B Current Condition Start: 11/13/22 14:20 Freq: Status: Active Protocol: Document 11/19/22 09:04 AMB (Rec: 11/19/22 09:45 AMB [id number]) Current Condition History of Current Condition Onset Date 10/24 Current Complaints TIA History of Current Condition Pt had TIA with resultant L LE weaknes and numbness. No falls since returning home. Was able to d/c home with s/p acute care stay. recently diagnosed with Alzheimers. R hip pain increased because they took her off naproxen and thinks she is putting more weight on R leg due to L leg weakness. By the afternoon and cooking in the kitchen the hip pain really increases. Is trying to do yoga on the floor, does need UE support for her floor transfer. Enjoys hiking but has not been back to hiking since. Walking 15-20 minutes, but hip pain limits. Attends with single trekking pole in the R hand. Notices some numbness on plantar aspect of the left foot. Personal Factors Other Personal Factors That May Effect Heart valve replacement in 6/ Therapy/Recovery 11; septicemia in 2017, double mastectomy 2009 PT-OP-C Subjective Start: 11/13/22 14:20 Freq: Status: Active Protocol: Document 12/20/22 11:51 ES (Rec: 12/20/22 15:47 ES [id number]) OP-PT Subjective Patient Comments Patient Comments Patient stated that she made an appt with her doctor on regarding her hip pain not getting better. Still having a lot of pain and difficulty working around the house and garden. By the end of the day spends most of her time in the recliner. Has been doing her exercises, not as much as she probably should. Has started limiting her walking and community activity . PT-OP-D Balance Start: 11/13/22 14:20 Freq: Status: Active Protocol: Document 11/19/22 09:00 AMB (Rec: 11/21/22 15:53 AMB [id number]) Balance Tests Single Limb Standing Single Limb- Right 3 Single Limb- Left 2 PT-OP-G Mobility & Gait Start: 11/13/22 14:20 Freq: Status: Active Protocol: Document 11/19/22 14:26 AMB (Rec: 11/21/22 14:32 AMB [id number]) OP Gait Assessment Comments Gait Comments Pt ambulates with trekking pole in R UE, trendelenburg gait pattern increases when not using AD. PT-OP-M Strength Start: 11/13/22 14:20 Freq: Status: Active Protocol: Document 11/19/22 09:04 AMB (Rec: 11/19/22 09:45 AMB [id number]) Hip Strength Hip Manual Muscle Testing Right Flexion (L2) 4+ Good+ Extension (S1) 4- Good- Abduction 4- Good- Left Flexion (L2) 4- Good- Extension (S1) 4 Good Abduction 4 Good Knee Strength Knee Manual Muscle Testing Right Flexion (S2) 4+ Good+ Extension (L3) 4+ Good+ Left Flexion (S2) 4 Good Extension (L3) 4 Good PT-OP-Q Treatments Start: 11/13/22 14:20 Freq: Status: Active Protocol: Document 12/20/22 11:51 ES (Rec: 12/20/22 15:47 ES [id number]) Therapeutic Exercises Supine Exercises Staggered bridge Reps/Minutes x10 Comments R foot back, L foot forward to increase resistance for R hip Sitting Exercises piriformis stretch Sitting Exercise Name Modified pigeon pose Side right Reps/Minutes 2x30s Gait Training Gait Activity Gait Description Amb on level ground Treatment Focus Cued for increased stride length, increased hip extension force Comments Pain with initial heel contact on R, reduced with cueing for increased stride. Worse with resisted ambulation. Manual Therapy Treatment Soft Tissue Mobilization hips Body Location B TFL, glut med, ITB Mobilization Type Myofascial Release,Strumming Intensity/Depth Moderate Body Position Sidelying PT-OP-T Assessment and Plan Start: 11/13/22 14:20 Freq: Status: Active Protocol: Document 12/20/22 11:51 ES (Rec: 12/20/22 15:47 ES [id number]) Physical Therapy Assessment Goals Balance Casino Cage Supervisor Goal (LTG) Aundrea will show improved balance by maintaining single leg stance for 5 seconds to help her return to her yoga practice. 12/12/22: progressin sec LLE, 13 sec RLE LTG Duration 8 weeks progressing 12/12 Three Impairment Gait Short Term Goal (STG) Aundrea will ambulate for 10 minutes without AD without trendelenburg gait over smooth terrain. STG Duration 4 weeks Casino Cage Supervisor Goal (LTG) Aundrea will ambulate over uneven surfaces including grass, gravel, and curbs without antalgic gait and without loss of balance. LTG Duration 8 weeks Two Impairment Pain Short Term Goal (STG) Aundrea will ascend/descend a flight of stairs without hip pain. 12/12/22: progressing: yesterday alot low back R>L hip cleft pain, post manual today, light contact rail for safety support as needed. STG Duration 4 weeks progressing 12/12/22 One Impairment Strength Short Term Goal (STG) Aundrea will be independent with a HEP to improve her hip strength bilaterally. STG Duration 4 weeks Assessment Summary Assessment Patient continues to be weak in R glutes as evidenced by difficulty performing SL bridge on R, no difficulty on L. She was able to minimally reduce hip pain during walking by increasing stride length to improve push-off. Will assess progress next visit and determine whether patient is appropriate to continue with skilled PT vs HEP as she reports minimal improvement in her pain/function. Physical Therapy Plan Frequency and Duration Frequency of Treatment 2x/Week Duration of treatment (weeks) 10 Plan of Care Start Date 11/19/22 Plan of Care End Date 01/28/23 Therapeutic Interventions Therapeutic Interventions Balance Training,Gait Training ,Home Exercise Program,Manual Therapy,Neuromuscular Re- education,Self-Care/Home Management,Therapeutic Activities,Therapeutic Exercises Modalities Cold Pack/Ice Massage,Electric Stimulation,Hot Packs Next Visit Focus/Plan Next Note Type Progress Note
--- NOTE | 2022-12-24 14:45 | PT.OTN ---
Current Diagnoses Cerebral infarction, unspecified (12/24/22) Pain in right hip (12/24/22) Weakness (12/24/22) Physical Therapy Treatment Note PT-OP-A Visit Information Start: 11/13/22 14:20 Freq: Status: Active Protocol: Document 12/24/22 13:40 ES (Rec: 12/24/22 14:45 ES [id number]) Out-Patient Physical Therapy Visit Information Visit Information Visit Type Progress Note Visit Note Progress note for 11/19/22- Visit Start Time 13:45 Visit Stop Time 14:33 Total Visit Minutes 48 Visit Number 10 Number of ROLLER STRUCTURAL MILL Visits 0 Evaluation Information Evaluation Date 11/19/22 PT-OP-B Current Condition Start: 11/13/22 14:20 Freq: Status: Active Protocol: Document 11/19/22 09:04 AMB (Rec: 11/19/22 09:45 AMB [id number]) Current Condition History of Current Condition Onset Date 10/24 Current Complaints TIA History of Current Condition Pt had TIA with resultant L LE weaknes and numbness. No falls since returning home. Was able to d/c home with s/p acute care stay. recently diagnosed with Alzheimers. R hip pain increased because they took her off naproxen and thinks she is putting more weight on R leg due to L leg weakness. By the afternoon and cooking in the kitchen the hip pain really increases. Is trying to do yoga on the floor, does need UE support for her floor transfer. Enjoys hiking but has not been back to hiking since. Walking 15-20 minutes, but hip pain limits. Attends with single trekking pole in the R hand. Notices some numbness on plantar aspect of the left foot. Personal Factors Other Personal Factors That May Effect Heart valve replacement in 6/ Therapy/Recovery 11; septicemia in 2017, double mastectomy 2009 PT-OP-C Subjective Start: 11/13/22 14:20 Freq: Status: Active Protocol: Document 12/24/22 13:40 ES (Rec: 12/24/22 14:45 ES [id number]) OP-PT Subjective Patient Comments Patient Comments Patient reported that she had a bad night of sleep Saturday night and had a rough day on Saturday. Took a couple hour nap yesterday and felt better. Stated that she is feeling like she is making progress mentally. Has been trying to do her exercises throughout the day vs all at once and that works better. States that she has better balance and is walking a little more quickly since starting therapy, but the hip pain seems to be getting worse since starting PT and stopping her pain medication. Still having numbness in the ball of the L foot that hasn't changed. Is walking up to about 20-25 minutes at a time, limited by fatigue and hip pain. Has to use both walking poles. Is able to stand for about 10-15 minutes at a time due to fatigue. OP-PT Pain Assessment Comments Pain Comments R hip at worst 6/10, Left hip at worst 4/10 PT-OP-D Balance Start: 11/13/22 14:20 Freq: Status: Active Protocol: Document 12/24/22 13:40 ES (Rec: 12/24/22 14:45 ES [id number]) Balance Tests Single Limb Standing Single Limb- Right 28 Single Limb- Left 37 PT-OP-G Mobility & Gait Start: 11/13/22 14:20 Freq: Status: Active Protocol: Document 11/19/22 14:26 AMB (Rec: 11/21/22 14:32 AMB [id number]) OP Gait Assessment Comments Gait Comments Pt ambulates with trekking pole in R UE, trendelenburg gait pattern increases when not using AD. PT-OP-M Strength Start: 11/13/22 14:20 Freq: Status: Active Protocol: Document 12/24/22 13:40 ES (Rec: 12/24/22 14:45 ES [id number]) Hip Strength Hip Manual Muscle Testing Right Extension (S1) 4- Good- Abduction 4- Good- Left Extension (S1) 4 Good Abduction 4 Good PT-OP-Q Treatments Start: 11/13/22 14:20 Freq: Status: Active Protocol: Document 12/24/22 13:40 ES (Rec: 12/24/22 14:45 ES [id number]) Therapeutic Exercises Prone Exercises Hip extension Side bilateral Reps/Minutes 2x10 Comments HEP Sidelying Exercises hip abd Sidelying Exercise Name SLR HEP reviewed Side bilateral Reps/Minutes x10 ea side Comments Cued for dec hip flexion; inc pain on R Standing Exercises Hip abd Side bilateral Reps/Minutes x10 ea side Comments Done at wall, cued for dec hip flex Self-Care/Home Management Treatment Education Patient Education Home Exercise Program Other Education Reviewed all HEP's; instructed in modifications due to R hip pain with hip abduction. Ok to stop hip flexor stretch. PT-OP-T Assessment and Plan Start: 11/13/22 14:20 Freq: Status: Active Protocol: Document 12/24/22 13:40 ES (Rec: 12/24/22 14:45 ES [id number]) Physical Therapy Assessment Goals Balance Thin Film Technician Goal (LTG) Aundrea will show improved balance by maintaining single leg stance for 5 seconds to help her return to her yoga practice. 12/12/22: progressin sec LLE, 13 sec RLE LTG Duration 8 weeks - met Three Impairment Gait Impairment Able to walk 10 minutes without AD; uses AD for >10 min Short Term Goal (STG) Aundrea will ambulate for 10 minutes without AD without trendelenburg gait over smooth terrain. STG Duration 4 weeks - met Correction Goal (LTG) Aundrea will ambulate over uneven surfaces including grass, gravel, and curbs without antalgic gait and without loss of balance. LTG Duration 8 weeks Two Impairment Pain Impairment Increased pain with up/down stairs Short Term Goal (STG) Aundrea will ascend/descend a flight of stairs without hip pain. STG Duration 4 weeks - no progress One Impairment Strength Short Term Goal (STG) Aundrea will be independent with a HEP to improve her hip strength bilaterally. STG Duration 4 weeks - met Progress Towards Goals Progress Towards Goals Progressing Toward Goals Assessment Summary Assessment Patient demonstrates improved balance, but continues to have pain in R>L lateral and posterior hip with standing and walking. She does not have any significant limitation in ROM, and no signifcant findings with ALMA/FADIR. She does continue to have weakness in glutes contributing to this and will benefit from further strengthening to increase standing and walking tolerance to be able to walk in the community and return to hiking . Physical Therapy Plan Frequency and Duration Frequency of Treatment 2x/Week Duration of treatment (weeks) 10 Plan of Care Start Date 11/19/22 Plan of Care End Date 01/28/23 Therapeutic Interventions Therapeutic Interventions Balance Training,Gait Training ,Home Exercise Program,Manual Therapy,Neuromuscular Re- education,Self-Care/Home Management,Therapeutic Activities,Therapeutic Exercises Modalities Cold Pack/Ice Massage,Electric Stimulation,Hot Packs Next Visit Focus/Plan Next Note Type Treatment Note Next Visit Plan Progress hip extension and abduction strength, STM to R hip as indicated.
--- NOTE | 2022-12-27 12:24 | PT.OTN ---
Current Diagnoses Cerebral infarction, unspecified (12/27/22) Pain in right hip (12/27/22) Weakness (12/27/22) Physical Therapy Treatment Note PT-OP-A Visit Information Start: 11/13/22 14:20 Freq: Status: Active Protocol: Document 12/27/22 10:43 ES (Rec: 12/27/22 12:24 ES [id number]) Out-Patient Physical Therapy Visit Information Visit Information Visit Type Treatment Note Visit Start Time 10:47 Visit Stop Time 11:29 Total Visit Minutes 42 Visit Number 11 Number of MANAGER TARGET Visits 0 Evaluation Information Evaluation Date 11/19/22 PT-OP-B Current Condition Start: 11/13/22 14:20 Freq: Status: Active Protocol: Document 11/19/22 09:04 AMB (Rec: 11/19/22 09:45 AMB [id number]) Current Condition History of Current Condition Onset Date 10/24 Current Complaints TIA History of Current Condition Pt had TIA with resultant L LE weaknes and numbness. No falls since returning home. Was able to d/c home with s/p acute care stay. recently diagnosed with Alzheimers. R hip pain increased because they took her off naproxen and thinks she is putting more weight on R leg due to L leg weakness. By the afternoon and cooking in the kitchen the hip pain really increases. Is trying to do yoga on the floor, does need UE support for her floor transfer. Enjoys hiking but has not been back to hiking since. Walking 15-20 minutes, but hip pain limits. Attends with single trekking pole in the R hand. Notices some numbness on plantar aspect of the left foot. Personal Factors Other Personal Factors That May Effect Heart valve replacement in 6/ Therapy/Recovery 11; septicemia in 2017, double mastectomy 2009 PT-OP-C Subjective Start: 11/13/22 14:20 Freq: Status: Active Protocol: Document 12/27/22 10:43 ES (Rec: 12/27/22 12:24 ES [id number]) OP-PT Subjective Patient Comments Patient Comments Patient stated that she had a little bit of back pain doing the hip extension exercise on the floor, will try pillow under belly next time. Walked 0.6 mi on Saturday, plans to increase 0.1 mi at a time. PT-OP-D Balance Start: 11/13/22 14:20 Freq: Status: Active Protocol: Document 12/24/22 13:40 ES (Rec: 12/24/22 14:45 ES [id number]) Balance Tests Single Limb Standing Single Limb- Right 28 Single Limb- Left 37 PT-OP-G Mobility & Gait Start: 11/13/22 14:20 Freq: Status: Active Protocol: Document 11/19/22 14:26 AMB (Rec: 11/21/22 14:32 AMB [id number]) OP Gait Assessment Comments Gait Comments Pt ambulates with trekking pole in R UE, trendelenburg gait pattern increases when not using AD. PT-OP-M Strength Start: 11/13/22 14:20 Freq: Status: Active Protocol: Document 12/24/22 13:40 ES (Rec: 12/24/22 14:45 ES [id number]) Hip Strength Hip Manual Muscle Testing Right Extension (S1) 4- Good- Abduction 4- Good- Left Extension (S1) 4 Good Abduction 4 Good PT-OP-Q Treatments Start: 11/13/22 14:20 Freq: Status: Active Protocol: Document 12/27/22 10:43 ES (Rec: 12/27/22 12:24 ES [id number]) Cardio Equipment Recumbent Stepper (Sci-Fit) Duration (Minutes) 5 Resistance 2.5 Seat Position 9 Gym Equipment Shuttle Recovery unilateral squat Details iso hip abd with green band loop Resistance 37lb Shuttle Recovery Platform Stable Reps/Time 2x15 ea B Bilateral Squats Resistance 50-62lb Shuttle Recovery Platform Unstable Reps/Time 2x20 Therapeutic Exercises Sitting Exercises piriformis stretch Side bilateral Reps/Minutes 3x30s Standing Exercises Dippy bird Side bilateral Equipment Used bar, progressing to foam roll BAMBI support Reps/Minutes x5 ea side Comments Increased R hip pain so did not continue band walk Standing Exercise Name lateral and fwd/bkwd Side bilateral Resistance Yellow loop Reps/Minutes 20 ft x2 laps each Comments cued elongated posture, DF and ft clear trail LE w/slow eccentric return PT-OP-T Assessment and Plan Start: 11/13/22 14:20 Freq: Status: Active Protocol: Document 12/27/22 10:43 ES (Rec: 12/27/22 12:24 ES [id number]) Physical Therapy Assessment Goals Balance Silk Finisher Goal (LTG) Aundrea will show improved balance by maintaining single leg stance for 5 seconds to help her return to her yoga practice. 12/12/22: progressin sec LLE, 13 sec RLE LTG Duration 8 weeks - met 12/24/22 Three Impairment Gait Impairment Able to walk 10 minutes without AD; uses AD for >10 min Short Term Goal (STG) Aundrea will ambulate for 10 minutes without AD without trendelenburg gait over smooth terrain. STG Duration 4 weeks - met 12/24/22 Silk Finisher Goal (LTG) Aundrea will ambulate over uneven surfaces including grass, gravel, and curbs without antalgic gait and without loss of balance. LTG Duration 8 weeks Two Impairment Pain Impairment Increased pain with up/down stairs Short Term Goal (STG) Aundrea will ascend/descend a flight of stairs without hip pain. STG Duration 4 weeks - no progress 12/24/22 One Impairment Strength Short Term Goal (STG) Aundrea will be independent with a HEP to improve her hip strength bilaterally. STG Duration 4 weeks - met 12/24/22 Assessment Summary Assessment Patient tolerated all ex's today with minimal increase in R hip pain, improved when cued for hip alignment and increased lateral hip mm recruitment. She was more easily fatigued on LLE with all ex's. She will benefit from further strengthening to improve gait and balance for functional mobility. Physical Therapy Plan Frequency and Duration Frequency of Treatment 2x/Week Duration of treatment (weeks) 10 Plan of Care Start Date 11/19/22 Plan of Care End Date 01/28/23 Therapeutic Interventions Therapeutic Interventions Balance Training,Gait Training ,Home Exercise Program,Manual Therapy,Neuromuscular Re- education,Self-Care/Home Management,Therapeutic Activities,Therapeutic Exercises Modalities Cold Pack/Ice Massage,Electric Stimulation,Hot Packs Next Visit Focus/Plan Next Note Type Treatment Note Next Visit Plan Progress hip extension and abduction strength, STM to R hip as indicated.
--- NOTE | 2023-01-28 08:08 | PT.OPDS ---
Current Diagnoses Cerebral infarction, unspecified (12/27/22) Pain in right hip (12/27/22) Weakness (12/27/22) Visit Care Team Role Provider Type Brice Giron DO Family Provider Physician Primary Care Provider Specialty: Family Practice Address: [address] [place] [address], [id number] Email: [email or web address] Attending Provider Referring Provider Specialty: Address: Phone: Fax: Email: Visit Number Visit Number 11 Discharge Summary PT-OP-B Current Condition Start: 11/13/22 14:20 Freq: Status: Active Protocol: Document 11/19/22 09:04 AMB (Rec: 11/19/22 09:45 AMB [id number]) Current Condition History of Current Condition Onset Date 10/24 Current Complaints TIA History of Current Condition Pt had TIA with resultant L LE weaknes and numbness. No falls since returning home. Was able to d/c home with s/p acute care stay. recently diagnosed with Alzheimers. R hip pain increased because they took her off naproxen and thinks she is putting more weight on R leg due to L leg weakness. By the afternoon and cooking in the kitchen the hip pain really increases. Is trying to do yoga on the floor, does need UE support for her floor transfer. Enjoys hiking but has not been back to hiking since. Walking 15-20 minutes, but hip pain limits. Attends with single trekking pole in the R hand. Notices some numbness on plantar aspect of the left foot. Personal Factors Other Personal Factors That May Effect Heart valve replacement in 6/ Therapy/Recovery 11; septicemia in 2017, double mastectomy 2009 PT-OP-C Subjective Start: 11/13/22 14:20 Freq: Status: Active Protocol: Document 12/27/22 10:43 ES (Rec: 12/27/22 12:24 ES [id number]) OP-PT Subjective Patient Comments Patient Comments Patient stated that she had a little bit of back pain doing the hip extension exercise on the floor, will try pillow under belly next time. Walked 0.6 mi on Saturday, plans to increase 0.1 mi at a time. PT-OP-D Balance Start: 11/13/22 14:20 Freq: Status: Active Protocol: Document 12/24/22 13:40 ES (Rec: 12/24/22 14:45 ES [id number]) Balance Tests Single Limb Standing Single Limb- Right 28 Single Limb- Left 37 PT-OP-G Mobility & Gait Start: 11/13/22 14:20 Freq: Status: Active Protocol: Document 11/19/22 14:26 AMB (Rec: 11/21/22 14:32 AMB [id number]) OP Gait Assessment Comments Gait Comments Pt ambulates with trekking pole in R UE, trendelenburg gait pattern increases when not using AD. PT-OP-M Strength Start: 11/13/22 14:20 Freq: Status: Active Protocol: Document 12/24/22 13:40 ES (Rec: 12/24/22 14:45 ES [id number]) Hip Strength Hip Manual Muscle Testing Right Extension (S1) 4- Good- Abduction 4- Good- Left Extension (S1) 4 Good Abduction 4 Good PT-OP-T Assessment and Plan Start: 11/13/22 14:20 Freq: Status: Active Protocol: Document 01/28/23 08:06 [facility] (Rec: 01/28/23 08:08 [facility] [id number]) Physical Therapy Assessment Goals Balance [employer] Senior Associate Goal (LTG) Aundrea will show improved balance by maintaining single leg stance for 5 seconds to help her return to her yoga practice. 12/12/22: progressin sec LLE, 13 sec RLE LTG Duration 8 weeks - met 12/24/22 Three Impairment Gait Impairment Able to walk 10 minutes without AD; uses AD for >10 min Short Term Goal (STG) Aundrea will ambulate for 10 minutes without AD without trendelenburg gait over smooth terrain. STG Duration 4 weeks - met 12/24/22 Shelter Goal (LTG) Aundrea will ambulate over uneven surfaces including grass, gravel, and curbs without antalgic gait and without loss of balance. LTG Duration 8 weeks Two Impairment Pain Impairment Increased pain with up/down stairs Short Term Goal (STG) Aundrea will ascend/descend a flight of stairs without hip pain. STG Duration 4 weeks - no progress 12/24/22 One Impairment Strength Short Term Goal (STG) Aundrea will be independent with a HEP to improve her hip strength bilaterally. STG Duration 4 weeks - met 12/24/22 Assessment Summary Assessment Pt called on 01/10 to cancel her remaining appts d/t falling and injuring her foot. She was going to see her PCP then call back if she planned to cont PT. POC expires today and pt has not calledt o schedule. D/t change in medical status and POC expiration, DC pt at this time . Physical Therapy Plan Discharge Physical Therapy Discharge Reasons Change in Medical Status
== END 2023-01-30 12:25 | disposition home or self-care (01) ==
LOC: PHYS 10:45
PROVIDERS: Absent Provider Family Medicine; Family Provider Family Medicine; PCP Family Medicine
DX: I63.9 Cerebral infarction, unspecified (principal); R53.1 Weakness; M25.551 Pain in right hip
CPT/HCPCS: 97110; 97112; 97116; 97140; 97161; 97535

== ENCOUNTER 2022-12-31 17:34 | Emergency (ER) | payer MEDICARE, BC, SELFPAY ==
[2022-10-24 17:22] VITALS: BMI 25.7
[2022-12-31 17:36] VITALS: BP 178/86; PULSE 65; RESP 18; TEMP 36.1; O2SAT 98; BMI 27.1
--- NOTE | 2022-12-31 17:41 | DI.CT.S_ITS ---
PROCEDURE: CT HEAD/BRAIN WO CON INDICATIONS: fall on thinners TECHNIQUE: Noncontrast 4.5 mm thick angled axial sections acquired from the foramen magnum to the vertex, with coronal and sagittal reformats. For radiation dose reduction, the following was used: automated exposure control, adjustment of mA and/or kV according to patient size. COMPARISON: [facility], CT, CT STROKE, 10/24/2022, 15:11. FINDINGS: Image quality: Excellent. CSF spaces: Basal cisterns are patent. No extra-axial fluid collections. The ventricles are symmetric in size and shape. Brain: No intracranial bleeds or masses. There is cerebral volume loss for age, with resultant ventricular and sulcal prominence. There are periventricular and deep white matter chronic small vessel ischemic changes. There is intracranial internal carotid artery atherosclerosis. Skull and face: Calvarium and visualized facial bones appear intact, without suspicious lesions. Sinuses: Visualized sinuses and mastoids are clear. IMPRESSION: 1. No acute intracranial abnormalities. 2. Cerebral volume loss and chronic microvascular ischemic changes. Dictated by: Alverto Hernandez M.D. on 12/31/2022 at 17:56 Approved by: Alverto Hernandez M.D. on 12/31/2022 at 17:57
--- NOTE | 2022-12-31 17:42 | DI.RAD.S_ITS ---
PROCEDURE: XR FINGER LT MIN 2V INDICATIONS: fall, deformity TECHNIQUE: AP hand, 2 views of the 5th finger(s) acquired. COMPARISON: None. FINDINGS: Bones: Question mildly angulated fracture of the distal 5th middle phalanx. No suspicious bony lesions. Moderate arthritic changes at the proximal 5th interphalangeal joint. Severe 1st carpometacarpal joint degeneration. Osteopenia. Soft tissues: No suspicious soft tissue calcifications. IMPRESSION: 1. Angulated appearance of the distal aspect of the 5th middle phalanx, suspicious for fracture. Dictated by: Alverto Hernandez M.D. on 12/31/2022 at 18:00 Approved by: Alverto Hernandez M.D. on 12/31/2022 at 18:03
--- NOTE | 2022-12-31 17:43 | DI.RAD.S_ITS ---
PROCEDURE: XR TOE RT MIN 2V INDICATIONS: fall deformity pain TECHNIQUE: 3 views of the 3rd toe(s) acquired. COMPARISON: None. FINDINGS: Bones: Minimally displaced fracture at the base of the 3rd proximal phalanx. No suspicious bony lesions. Soft tissues: No suspicious soft tissue densities. IMPRESSION: 3rd proximal phalangeal fracture. Dictated by: Alverto Hernandez M.D. on 12/31/2022 at 18:03 Approved by: Alverto Hernandez M.D. on 12/31/2022 at 18:04
[2022-12-31] MEDS: LIDOCAINE 2% INJ SDV 5ML 5 ML INJ (18:27)
--- NOTE | 2022-12-31 18:40 | PC.NURSE ---
3rd and 4th digit on R foot earnestine taped together and 4th and 5th digit on L hand earnestine taped together. pt tolerated well.
[2022-12-31 18:42] VITALS: BP 161/77; PULSE 61; RESP 16; O2SAT 100
--- NOTE | 2022-12-31 18:49 | ED.FALL ---
HPI - Fall <Zara Lange PA-C - Last Filed: 12/31/22 18:59> General Chief Complaint: Fall Stated Complaint: Fall, finger/toe pain Time Seen by Provider: 12/31/22 18:00 Source: patient Mode of arrival: Ambulatory History of Present Illness HPI Narrative: 77-year-old female with past medical history TIA, hyperlipidemia, hypertension, epilepsy presents to the ED status post a mechanical fall sustained prior to arrival. Patient states that it was a trip and fall when she lost balance on a step. Patient complains of a painful 2nd and 3rd toe on the right foot. Patient also complains of left pinky finger pain. Patient denies numbness, tingling, weakness. Patient denies head strike, LOC. patient denies chest pain, shortness of breath, dizziness, lightheadedness, syncope. Patient is on dual antiplatelet therapy.. Related Data Home Medications Medication Instructions Recorded Confirmed levetiracetam 500 mg tablet 500 mg PO BID 01/19/22 12/31/22 (Keppra) Adult Low Dose Aspirin 81 mg PO DAILY 10/24/22 12/31/22 Fish Oil 2,400 mg PO DAILY 10/24/22 12/31/22 amoxicillin 500 mg-potassium 1 tab PO DAILY 11/05/22 12/31/22 clavulanate 125 mg tablet calcium carbonate 200 mg calcium 200 mg PO BID 11/05/22 12/31/22 (500 mg) chewable tablet cholecalciferol (vitamin D3) 25 25 mcg PO DAILY 11/05/22 12/31/22 mcg (1,000 unit) capsule dabigatran etexilate 150 mg 150 mg PO BID 11/05/22 12/31/22 capsule (Pradaxa) docusate sodium 100 mg capsule 100 mg PO DAILY PRN 11/05/22 12/31/22 (Colace) famotidine 20 mg tablet 20 mg PO BID 11/05/22 12/31/22 losartan 25 mg tablet 37.5 mg PO 11/05/22 12/31/22 psyllium seed (sugar) oral powder 1 tbsp PO DAILY 11/05/22 12/31/22 (Metamucil (sugar) oral powder) simethicone 125 mg capsule 125 mg PO QD-BID PRN 11/05/22 12/31/22 Previous Rx's Medication Instructions Recorded atorvastatin 20 mg tablet See Rx Instructions .Route 02/04/22 .COMPLEX #90 tabs metoprolol tartrate 25 mg tablet 12.5 mg PO BID #90 tabs 10/23/22 Allergies Allergy/AdvReac Type Severity Reaction Status Date / Time cephalexin [From Keflex] AdvReac Mild Rash Verified 12/31/22 08:42 Review of Systems <Zara Lange PA-C - Last Filed: 12/31/22 18:59> Review of Systems ROS Unobtainable: All systems reviewed & are unremarkable except as noted in HPI and below Constitutional Constitutional: Denies chills, Denies fatigue, Denies fever(s), Denies frequent falls, Denies lethargy and Denies weakness Eyes Eyes: Denies change in vision, Denies eye discharge, Denies irritation and Denies loss of vision ENT Ears, Nose, Mouth, and Throat: Denies change in voice, Denies dizziness, Denies neck pain, Denies sore throat and Denies throat swelling Cardiovascular Cardiovascular: Denies chest pain, Denies irregular heart rhythm, Denies lightheadedness, Denies palpitations, Denies dyspnea, Denies dyspnea on exertion and Denies orthopnea Respiratory Respiratory: Denies cough, Denies dyspnea, Denies dyspnea on exertion and Denies wheezing Gastrointestinal Gastrointestinal: Denies abdominal pain, Denies change in bowel habits, Denies diarrhea, Denies nausea and Denies vomiting Genitourinary Genitourinary: Denies hematuria, Denies flank pain, Denies urinary incontinence and Denies urinary urgency Musculoskeletal Musculoskeletal: Denies back pain, Denies muscle weakness, Denies neck pain, Denies numbness and Denies tingling Comments: Right 2nd and 3rd toe pain. Left pinky finger pain. Integumentary/Breasts Skin/Breast: Denies pruritus, Denies erythema, Denies rash and Denies wounds Neurologic Neurologic: Denies behavioral changes, Denies confusion, Denies dizziness, Denies frequent falls, Denies loss of vision, Denies numbness, Denies tingling and Denies weakness Psychiatric Psychiatric: Denies anxiety, Denies behavioral changes, Denies confusion, Denies depression, Denies homicidal ideation and Denies suicidal ideation Endocrine Endocrine: Denies fatigue, Denies flushing and Denies palpitations Hematologic/Lymphatic Hematologic/Lymphatic: Denies easy bruising Allergic/Immunologic Allergic/Immunologic: Denies urticaria, Denies throat swelling and Denies wheezing Patient History <Zara Lange PA-C - Last Filed: 12/31/22 18:59> Medical History Anxiety Cervical strain Chronic right hip pain Colon polyps Epilepsy History of breast cancer Hyperlipidemia Hypertension Spondylolysis of cervical spine Surgical History H/O aortic valve replacement History of breast reconstruction Social History household members: spouse Smoking Status: Former smoker alcohol intake: current Smoking Status: Former smoker alcohol intake frequency: 3 or more drinks per day Substance Use Type: does not use Exam <Zara Lange PA-C - Last Filed: 12/31/22 18:59> Narrative Exam Narrative: Const General:?cooperative, healthy appearing and comfortable HENID Head:?normal to inspection Ears:?hearing grossly normal bilaterally Nose:?external nose normal Face and sinus:?normal facial exam and sinuses nontender Mouth:?oral mucosae normal Throat:?posterior oropharynx normal Eyes General:?appearance normal, both eyes and all related structures Neck Neck:?normal visual inspection and no lymphadenopathy noted Resp Effort & Inspection:?normal respiratory effort Auscultation:?clear to auscultation bilaterally Cardio Rate:?regular rate Rhythm:?regular rhythm Musculoskeletal Left pinky finger appears bruised, angulated laterally. Base of 3rd toe of right foot shows mild bruising but no deformities. Strength and sensation is intact. There is full range of motion. Patient is neurovascularly intact. There is a small abrasion to the base of the 2nd toenail of the right foot. Neuro General:?patient alert, patient awake and patient oriented x3 Initial Vital Signs Initial Vital Signs: Vital Signs Temperature 96.9 F L 12/31/22 17:36 Pulse Rate 65 12/31/22 17:36 Respiratory Rate 18 12/31/22 17:36 Blood Pressure 178/86 H 12/31/22 17:36 Pulse Oximetry 98 12/31/22 17:36 Oxygen Delivery Method Room Air 12/31/22 17:36 <Jana Irene DO - Last Filed: 01/01/23 09:55> Initial Vital Signs Initial Vital Signs: Vital Signs Temperature 96.9 F L 12/31/22 17:36 Pulse Rate 65 12/31/22 17:36 Respiratory Rate 18 12/31/22 17:36 Blood Pressure 178/86 H 12/31/22 17:36 Pulse Oximetry 98 12/31/22 17:36 Oxygen Delivery Method Room Air 12/31/22 17:36 Procedures <TATI Mo Last Filed: 12/31/22 18:59> Orthopedic Fracture Reduction Fracture #1: Side: left Fracture Reduction Location: finger Analgesia: nerve block (Digital block) and other Technique: direct manipulation Post-reduction neuro exam: intact Post-reduction vascular exam: intact Splint Applied: No (Earnestine-taped to digit 4) Patient Tolerated Procedure: Well and No complications Course <TATI Mo Last Filed: 12/31/22 18:59> Orders Ordered: Discontinued Medications Lidocaine HCl (Lidocaine 2% Inj Sdv 5ml) 5 ml INJ INTRA-OP ONE Stop: 12/31/22 18:24 Last Admin: 12/31/22 18:27 Dose: 5 ml Documented By: CTS Vital Signs Vital signs: Vital Signs - 8 hr 12/31/22 17:36 12/31/22 18:42 Temperature 96.9 F L Pulse Rate 65 61 Respiratory Rate 18 16 Blood Pressure 178/86 H 161/77 H Pulse Oximetry 98 100 Oxygen Delivery Method Room Air Room Air <Jana Irene DO - Last Filed: 01/01/23 09:55> Orders Ordered: Discontinued Medications Lidocaine HCl (Lidocaine 2% Inj Sdv 5ml) 5 ml INJ INTRA-OP ONE Stop: 12/31/22 18:24 Last Admin: 12/31/22 18:27 Dose: 5 ml Documented By: CTS Vital Signs Vital signs: Vital Signs - 8 hr 12/31/22 17:36 12/31/22 18:42 Temperature 96.9 F L Pulse Rate 65 61 Respiratory Rate 18 16 Blood Pressure 178/86 H 161/77 H Pulse Oximetry 98 100 Oxygen Delivery Method Room Air Room Air MDM - Fall <TATI Mo Last Filed: 12/31/22 18:59> MDM Narrative Medical decision making narrative: 77-year-old female with past medical history TIA, hyperlipidemia, hypertension, epilepsy presents to the ED status post a mechanical fall sustained prior to arrival. Concern for fracture/dislocation versus abrasions versus musculoskeletal sprain/strain versus other. Obtained x-rays. There is an angulated appearance of the distal aspect of the 5th middle phalanx of the left hand, suspicious for fracture. There is a 3rd proximal phalangeal fracture. Patient's left pinky finger was numbed with a digital block, the finger was reduced successfully. Patient was able to move all joints of the finger after reduction. Earnestine-taped fractured toe and pinky finger. Recommend follow-up with ortho. ED return precautions discussed with patient. Patient verbalized understanding. Medical records reviewed: Yes Discharge Plan Departure Patient Disposition: Home Clinical Impression: Finger fracture, Fracture of toe Instructions: DI for Toe Fracture, DI for Finger Fracture, How to Prevent Falls Activity Restrictions/Additional Instructions: You were evaluated in the ED today for a fall. It appears that you have a fracture of the pinky finger of the left hand and a fracture of the middle toe of your right foot. The finger fracture was slightly angulated and therefore we numbed it and reduced it to straighten it. We have earnestine-taped your fractured finger and toe for stability and healing. Please keep it earnestine taped. You may follow-up with ortho as soon as possible. You may call [facility] at [phone]. Return to the ED if you have worsening symptoms, numbness, tingling, weakness. You may take Celebrex or Tylenol for your symptoms. Prescriptions: No Action levetiracetam [Keppra] 500 mg tablet 500 mg PO BID atorvastatin 20 mg tablet See Rx Instructions .ROUTE .COMPLEX Qty: 90 3RF Dose Instruction: take one tablet by mouth nightly. Rx Instructions: take one tablet by mouth nightly. metoprolol tartrate 25 mg tablet 12.5 mg PO BID Qty: 90 1RF amoxicillin-pot clavulanate 500-125 mg tablet 1 tab PO DAILY calcium carbonate 200 mg calcium (500 mg) tablet,chewable 200 mg PO BID cholecalciferol (vitamin D3) 25 mcg (1,000 unit) capsule 25 mcg PO DAILY dabigatran etexilate [Pradaxa] 150 mg capsule 150 mg PO BID docusate sodium [Colace] 100 mg capsule 100 mg PO DAILY PRN famotidine 20 mg tablet 20 mg PO BID losartan 25 mg tablet 37.5 mg PO Metamucil (sugar) Powder 1 tbsp PO DAILY simethicone 125 mg capsule 125 mg PO QD-BID PRN Adult Low Dose Aspirin 81 mg 81 mg PO DAILY Fish Oil 2,400 mg PO DAILY Referrals: Brice Giron DO [Primary Care Provider] - Stand Alone Forms: Patient Portal/API <Jana Irene DO - Last Filed: 01/01/23 09:55> Cosign ED Attending Cosignature Attestation: I was immediately available in the department for consultation. Documentation has been reviewed.
== END 2022-12-31 18:49 | disposition home or self-care (01) ==
PROVIDERS: Emergency Provider Student in an Organized Health Care Education/Training Program; Family Provider Family Medicine; PCP Family Medicine
DX: S62.603A Fracture of unspecified phalanx of left middle finger, initial encounter for closed fracture (principal); S92.592A Other fracture of left lesser toe(s), initial encounter for closed fracture; W18.30XA Fall on same level, unspecified, initial encounter; Z79.01 Long term (current) use of anticoagulants
CPT/HCPCS: 26742; 70450; 73140; 73660; 99284

== ENCOUNTER → 2023-03-08 08:23 | Outpatient (CLI) | payer MEDICARE, BC, SELFPAY ==
[2022-10-24 17:22] VITALS: BMI 25.7
[2023-03-11 18:11] LABS: Levetiracetam Keppra 16.2 ug/mL (10.0-40.0)
== END ==
PROVIDERS: Family Provider Family Medicine; PCP Family Medicine; Referring Provider Psychiatry & Neurology Neurology; Visit Provider Psychiatry & Neurology Neurology
DX: G40.109 Localization-related (focal) (partial) symptomatic epilepsy and epileptic syndromes with simple partial seizures, not intractable, without status epilepticus (principal)
CPT/HCPCS: 36415; 80177

== ENCOUNTER 2023-03-22 13:13 | Outpatient (RCR) | payer MEDICARE, BC, SELFPAY ==
[2022-10-24 17:22] VITALS: BMI 25.7
--- NOTE | 2023-03-22 15:02 | OT.OP.EVAL ---
Visit Care Team Role Provider Type Brice Giron DO Family Provider Physician Primary Care Provider Specialty: Family Practice Address: [address] [place] [address], [id number] Email: [email or web address] Brianna Pickens PA-C Attending Provider Advanced Traffic Clerk Referring Provider Specialty: Orthopedics Orthopedic Surgery Address: [address] [place] [address], [phone] Email: [email or web address] Occupational Therapy Initial Evaluation OT Outpatient Adult Evaluation Start: 03/22/23 14:33 Freq: Status: Active Protocol: Document 03/22/23 14:34 AMS (Rec: 03/22/23 15:01 AMS [id number]) General Information - Adult Visit Number 06/26 Plan of Care Dates 03/22/23 - 04/19/23 Insurance Information Medicare Visit Start Time 13:30 Visit Stop Time 14:00 Total Visit Minutes 30 Treatment Setting Outpatient Care Note Type Initial Evaluation Identification Confirmed Yes Identification Confirmed By Self Goals Hosiery Mender Goals 1. Aundrea will be modified independent with home exercise program utilizing provided written and visual instructions from therapist. 2. Aundrea will be able to identify 2-3 pieces of AE and/ or modification strategies/ techniques to support functional day-to-day life with active incorporation of the non-dominant left hand. Assessment/Plan Treatment Assessment Aundrea is a 78 year-old right hand dominant female referred to outpatient OT secondary to displaced fracture of middle phalanx of the L little finger w/ routine healing. Aundrea is currently receiving outpatient PT here at [facility] and is working on strength and balance. Aundrea had a fall in December of 2022; she is currently only able to stand for 10 to 20 minutes prior to fatigue w/ need to rest for 15 to 30 minutes. She presents without use of mobility AE, however, reports use of trekking poles. Medical history is significant for arthritis, back pain, blood clots, HTN, hyperlipidemia, anxiety, aortic valve replacement, sizures, memory loss, osteoporosis, hearing problems . Indication of 1 out of 10 on Pain Assessment Grid relative to the L 5th digit. QuickDASH UE Outcome Measure Score = 9. 09. She resides in a 1-story home w/ 2 KWESI w/ available railing that has been installed by her son; she also has a grab bar, shower stool, and non-skid shower mat for bathing. 55# of force R squash centre manager and 40# of force L squash centre manager (vs 59 # of force L squash centre manager w/ dynamometer II strength testing obtained 11/15/22). 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 5th digit ROM: 85 degrees active MPJ flex; 13 degrees active MPJ hyperextension; full ext at DIPJ; 30 degrees of flex at the 5th PIPJ at rest. Mild errors reported keyboarding w/ utilization of 'a' and 's' keys w/ 5th digit and some difficulties maintaining a squash centre manager for opening of a tight jar; however, overall, L 5th digit reportedly is not impacting Aundrea's day-to-day life. Denial of current use of splints/earnestine taping. Outpatient OT is recommended to address range of motion/ strength concerns of the L 5th digit and for development of home exercise program. 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 Resisted 5th digit abd w/ rubberband. Passive hook fist daily w/ hold of 20 sec. Length of treatment (weeks) 4 Plan of Care Start Date 03/22/23 Plan of Care End Date 04/19/23 Treatment Frequency Once a Week Therapeutic Contents Active Range of Motion, Adaptive Equipment Education, Client Education,Functional Activities,Home Exercise Program,Joint Protection, Manual Therapy,Education,Self- Care,Therapeutic Activities, Therapeutic Exercises, Modalities Modalities As Needed,As Prescribed Additional Types of Modalities Heat/Ice/Contrast baths/ Ultrasound/Paraffin bath Suggested Referrals Other Other Suggested Referrals CHT/certified hand therapist
--- NOTE | 2023-04-23 10:25 | OT.OP.DC ---
Visit Care Team Role Provider Type Brice Giron DO Family Provider Physician Primary Care Provider Address: [address] [place] [address], [id number] Email: [email or web address]-C Attending Provider Advanced Software Test Analyst Referring Provider Address: [address] [place] [address], [id number] Email: [email or web address] OT Outpatient OT Outpatient Adult Evaluation Start: 03/22/23 14:33 Freq: Status: Active Protocol: Document 03/22/23 14:34 AMS (Rec: 03/22/23 15:01 AMS [id number]) General Information - Adult Visit Information Visit Number 06/26 Plan of Care Dates 03/22/23 - 04/19/23 Insurance Information Medicare Session Time Visit Start Time 13:30 Visit Stop Time 14:00 Total Visit Minutes 30 Setting Treatment Setting Outpatient Care Visit Type Note Type Initial Evaluation Identification Identification Confirmed Yes Identification Confirmed By Self Goals Alf Goals Alf Goals 1. Aundrea will be modified independent with home exercise program utilizing provided written and visual instructions from therapist. 2. Aundrea will be able to identify 2-3 pieces of AE and/ or modification strategies/ techniques to support functional day-to-day life with active incorporation of the non-dominant left hand. Assessment/Plan Assessment Treatment Assessment Aundrea is a 78 year-old right hand dominant female referred to outpatient OT secondary to displaced fracture of middle phalanx of the L little finger w/ routine healing. Aundrea is currently receiving outpatient PT here at [facility] and is working on strength and balance. Aundrea had a fall in December of 2022; she is currently only able to stand for 10 to 20 minutes prior to fatigue w/ need to rest for 15 to 30 minutes. She presents without use of mobility AE, however, reports use of trekking poles. Medical history is significant for arthritis, back pain, blood clots, HTN, hyperlipidemia, anxiety, aortic valve replacement, sizures, memory loss, osteoporosis, hearing problems . Indication of 1 out of 10 on Pain Assessment Grid relative to the L 5th digit. QuickDASH UE Outcome Measure Score = 9. 09. She resides in a 1-story home w/ 2 KWESI w/ available railing that has been installed by her son; she also has a grab bar, shower stool, and non-skid shower mat for bathing. 55# of force R filter changing technician and 40# of force L filter changing technician (vs 59 # of force L filter changing technician w/ dynamometer II strength testing obtained 11/15/22). 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 5th digit ROM: 85 degrees active MPJ flex; 13 degrees active MPJ hyperextension; full ext at DIPJ; 30 degrees of flex at the 5th PIPJ at rest. Mild errors reported keyboarding w/ utilization of 'a' and 's' keys w/ 5th digit and some difficulties maintaining a filter changing technician for opening of a tight jar; however, overall, L 5th digit reportedly is not impacting Aundrea's day-to-day life. Denial of current use of splints/earnestine taping. Outpatient OT is recommended to address range of motion/ strength concerns of the L 5th digit and for development of home exercise program. 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 Resisted 5th digit abd w/ rubberband. Passive hook fist daily w/ hold of 20 sec. Plan Length of treatment (weeks) 4 Plan of Care Start Date 03/22/23 Plan of Care End Date 04/19/23 Treatment Frequency Once a Week Therapeutic Contents Active Range of Motion, Adaptive Equipment Education, Client Education,Functional Activities,Home Exercise Program,Joint Protection, Manual Therapy,Education,Self- Care,Therapeutic Activities, Therapeutic Exercises, Modalities Modalities As Needed,As Prescribed Additional Types of Modalities Heat/Ice/Contrast baths/ Ultrasound/Paraffin bath Suggested Referrals Other Other Suggested Referrals CHT/certified hand therapist Functional Wrist/Hand Scan Hand Side Sensory Assessment Sensory Profile2 OT Outpatient Treatment Note - Adult Start: 03/22/23 14:33 Freq: Status: Active Protocol: Document 04/23/23 10:22 AMS (Rec: 04/23/23 10:24 [facility] [id number]) OT Outpatient Adult Treatment Note Visit Information Plan of Care Dates 03/22/23 - 04/19/23 Insurance Information Medicare Setting Treatment Setting Outpatient Care Visit Type Note Type Discharge Summary General Information General Information Aundrea is a 78 year-old right hand dominant female referred to outpatient OT secondary to displaced fracture of middle phalanx of the L little finger w/ routine healing. - Subjective Observations Aundrea has not been seen for outpatient OT for > 30 days ( since 03/22/23 for eval) and POC on 04/19/23. Thus, recommend d/c from outpatient OT at this time and therapist to re-evaluate as deemed appropriate by PCP w/ receipt of new referral. - Objective Alf Goals D/C ALL GOALS 04/23/23 1. Aundrea will be modified independent with home exercise program utilizing provided written and visual instructions from therapist. 2. Aundrea will be able to identify 2-3 pieces of AE and/ or modification strategies/ techniques to support functional day-to-day life with active incorporation of the non-dominant left hand. - - Assessment Assessment of Improvement Aundrea has not been seen for outpatient OT for > 30 days ( since 03/22/23 for eval) and POC on 04/19/23. Thus, recommend d/c from outpatient OT at this time and therapist to re-evaluate as deemed appropriate by PCP w/ receipt of new referral. - Plan Therapy Recommendations Discharge from Occupational Therapy
== END 2023-04-30 09:02 | disposition home or self-care (01) ==
LOC: OT 13:13
PROVIDERS: Family Provider Family Medicine; PCP Family Medicine; Referring Provider Physician Assistant; Visit Provider Physician Assistant
DX: R53.1 Weakness (principal); S62.627D Displaced fracture of middle phalanx of left little finger, subsequent encounter for fracture with routine healing
CPT/HCPCS: 97165

== ENCOUNTER → 2023-04-15 09:19 | Outpatient (CLI) | payer MEDICARE, BC, SELFPAY ==
[2022-10-24 17:22] VITALS: BMI 25.7
--- NOTE | 2023-04-15 09:21 | DI.ECHO.S_ITS ---
[facility] +---------+ : : [address] : : : : [id number] : : : : Phone: [phone]+ Echocardiogram Report + + :Name: APOLINAR GUILLAUME Study Date: 04/15/2023 Height: 63 in : :[facility] ReadingLocation: Weight: 151 lb : : Gender: Female BSA: 1.7 m2 : :: 1945 Age: 78 yrs BP: 137/82 mmHg: :Reason For Study: TIA : :Ordering Physician: ALICE, : :SKYLER Performed By: Ina Willoughby : :Referring: SKYLER JENKINS : + + Interpretation Summary Technically difficult study. Grossly normal left ventricle size with ejection fraction 50-55%. Apical wall motion abnormality may reflect pacemaker activation. Mildly dilated right ventricle with borderline reduced right ventricular systolic function. The left atrium is severely dilated. The right atrium is moderately dilated. There is a bioprosthetic aortic valve. Moderate mitral annular calcification. Mild to moderate mitral stenosis. Moderate mitral regurgitation. Mild to moderate tricuspid regurgitation. Comparison is made with the echocardiogram of 10/25/2022, no significant change. Procedure: A two-dimensional transthoracic echocardiogram with color flow and Doppler was performed. The study quality was technically difficult. Comparison is made with the echocardiogram of 10/25/2022. A contrast injection of Definity was performed to improve assessment of LV function. The patient has a paced rhythm. Left Ventricle: The left ventricle is grossly normal size. The ejection fraction is estimated to be 50-55%. Apical wall motion abnormality may reflect pacemaker activation. Diastolic function could not be accurately assessed due to paced rhythm. Right Ventricle: The right ventricle is mildly dilated. There is a pacemaker lead in the right ventricle. Right ventricular systolic function is borderline reduced. Atria: The left atrium is severely dilated. The right atrium is moderately dilated. There is no Doppler evidence for an interatrial shunt. Mitral Valve: The mitral valve leaflets are moderately calcified. There is moderate mitral annular calcification. There is mild to moderate mitral stenosis. The mitral valve mean gradient is 5 mmHg. There is moderate mitral regurgitation. Aortic Valve: There is a bioprosthetic aortic valve. The peak aortic velocity is 1.86 m/sec. The aortic valve mean gradient is 7 mmHg. No aortic regurgitation is present. Tricuspid Valve: The tricuspid valve is not well visualized. There is no tricuspid stenosis. There is mild to moderate tricuspid regurgitation. Pulmonic Valve: The pulmonic valve is not well visualized. Great Vessels: The aortic root is not well visualized. The ascending aorta could not be visualized. The pulmonary is not well visualized. The IVC is of normal diameter and collapses greater than 50% with a sniff. This suggests a low right atrial pressure of 3 mm Hg. Pericardium/ Pleura There is a trivial pericardial effusion noted. There is no pleural effusion. MMode/2D Measurements & Calculations LA A2 area: 20.1 cm2 RA long axis: 5.5 cm LA A4 area: 25.4 cm2 RA area: 18.8 cm2 LA length (vol): 6.3 cm RA vol: 54.9 ml LA vol: 69.3 ml RA : 32.0 ml/m2 LA vol index: 40.4 ml/m2 RVD1 (basal): 4.2 cm LVLs ap4: 6.1 cm LVLd ap2: 7.6 cm TAPSE_phl: 1.7 cm LVLs ap2: 6.2 cm Doppler Measurements & Calculations Ao V2 max: 180.6 cm/sec LVOT Max Kashif: 74.9 cm/sec Ao V2 mean: 120.0 cm/sec LV V1 max P.2 mmHg Ao max P.0 mmHg LV V1 VTI: 17.8 cm Ao mean P.0 mmHg sev ratio: 0.46 Ao V2 VTI: 38.6 cm MV E max kashif: 127.0 cm/sec TR max kashif: 243.0 cm/sec MV A max kashif: 146.0 cm/sec TR max P.6 mmHg MV E/A: 0.87 Med Peak E' Kashif: 4.8 cm/sec E/E' med: 26.2 Lat Peak E' Kashif: 6.7 cm/sec E/E' lat: 19.0 E/e' average: 22.6 MV dec time: 0.28 sec MV V2 mean: 109.0 cm/sec AV VR_phl: 0.41 MV mean P.0 mmHg MV V2 VTI: 52.4 cm Electronically signed by: Radha Brunson on Reading Physician:04/15/2023 09:35 PM
== END ==
PROVIDERS: Family Provider Family Medicine; PCP Family Medicine; Referring Provider Family Medicine; Visit Provider Family Medicine
DX: G45.9 Transient cerebral ischemic attack, unspecified (principal); I08.1 Rheumatic disorders of both mitral and tricuspid valves; I10 Essential (primary) hypertension; Z95.2 Presence of prosthetic heart valve; Z95.0 Presence of cardiac pacemaker
CPT/HCPCS: 93306; Q9957

== ENCOUNTER 2023-04-25 12:15 | Outpatient (RCR) | payer MEDICARE, BC, SELFPAY ==
[2022-10-24 17:22] VITALS: BMI 25.7
--- NOTE | 2023-02-13 09:53 | PT.OIE ---
Current Diagnoses Other chronic pain (02/13/23) Pain in right hip (02/13/23) Pain in left hip (02/13/23) Pain in left leg (02/13/23) Other abnormalities of gait and mobility (02/13/23) History of falling (02/13/23) Past Medical History (Last Reviewed 12/31/22 @ 18:55 by Zara Lange PA-C) Anxiety Cervical strain Chronic right hip pain Colon polyps Epilepsy History of breast cancer Hyperlipidemia Hypertension Spondylolysis of cervical spine Past Surgical History (Last Reviewed 12/31/22 @ 18:55 by Zara Lange PA-C) H/O aortic valve replacement History of breast reconstruction Visit Care Team Role Provider Type Brice Giron DO Attending Provider Physician Family Provider Primary Care Provider Referring Provider Specialty: Family Practice Address: [address] [place] [address], [facility] Email: [email or web address] Physical Therapy Initial Evaluation PT-OP-A Visit Information Start: 02/12/23 17:12 Freq: Status: Active Protocol: Document 02/13/23 09:53 AM (Rec: 02/13/23 11:34 AM [id number]) Out-Patient Physical Therapy Visit Information Visit Information Visit Type Initial Evaluation Visit Start Time 09:55 Visit Stop Time 10:45 Total Visit Minutes 50 Visit Number 1 Number of GEAR GENERATOR SET UP OPERATOR Visits 0 Precautions Precautions pacemaker, seizures-Pt reports that these have typically happened at night. Her last seizure was in Jun, 2021 PT-OP-B Current Condition Start: 02/12/23 17:12 Freq: Status: Active Protocol: Document 02/13/23 09:53 AM (Rec: 02/13/23 11:34 AM [id number]) Current Condition History of Current Condition Onset Date Chronic History of Current Condition Pt reports that her hip pain has improved since she has been taking tylenol. Pt reports numbness at L foot following TIA. Pt reports that she has muscle fatigue by the evening. Pt reports that she has a general fatigue at at isaura LE in the evening. Pt reports that she rides her recumbent bike 15 min daily. Pt reports that she walks with a walking stick with her daily 1/2 mile walks. Pt had a recent fall in December. She fell off of last 2 steps on to concrete. She broke her L pinky and R middle toe. Pt had TIA on October 2022. Treatment Goals Patient/Caregiver Goals To improve balance for hiking and walking, to increase endurance Prior Functional Status Baseline Function- ADL's Independent Baseline Function- Mobility Independent Current Functional Impairments (Reported) Functional Limitations- ADL's Independent, though fatigue Functional Limitations- Mobility/Gait Pt reports that she is able to walk for up to a mile at a time. 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 PT-OP-C Subjective Start: 02/12/23 17:12 Freq: Status: Active Protocol: Document 02/13/23 09:53 AM (Rec: 02/13/23 11:34 AM [id number]) Patient Questionnaires ABC- Activity Specific Balance Confidence Scale ABC Score 960 ABC Functional Impairment 40 to <60% Impaired (Score 41- 60) Lower Extremity Functional Scale LEFS Score 33 LEFS Impairment 40 to 59% Impaired (Score 32- 47) OP-PT Pain Assessment Pain Assessment Grid Paper Pain Assessment Grid Completed Yes Location Bilateral Hip Pain Location Details Bilateral lateral hips Intensity 3 Scale Used Numeric (0 - 10) Description Aching Frequency Intermittent Pain Aggravating Factors Activity,Walking Pain Alleviating Factors Heat,Medication PT-OP-D Balance Start: 02/12/23 17:12 Freq: Status: Active Protocol: Document 02/13/23 09:53 AM (Rec: 02/13/23 11:34 AM [id number]) OP-PT Balance Assessment Sitting Balance Static Sitting Balance Ability Normal Dynamic Sitting Balance Ability Normal Balance Tests Single Limb Standing Single Limb- Right 12 Single Limb- Left 8 Tandem Tandem Standing 15 seconds Rondon Balance Assessment Evaluation Sitting to Standing Ability Independent w/out Hands Unsupported Stance Safely- 2 minutes Sitting Unsupported, Feet on Floor Safely- 2 minutes Standing to Sitting Ability Safely, Minimal Hand Use Transfer Ability Safely, Minimal Hand Use Unsupported Stance- Eyes Closed Supervision, 10 seconds Unsupported Stance- Eyes Open Independent, 1 minute Pick- Up Object From Floor Independent/Safe Look Behind Shoulder - Standing Shifts Weight Well Turning 360 Degrees Turns slowly, but safely Unsupported Stance, Alternating Feet on 4 Steps w/Supervision Stair Unsupported Tandem Stance Assist to Step-15 seconds Unilateral Leg Stance Lifts Leg/Holds 10 secs Total Score Rondon Total Score (out of 56 points) 44 Rondon Impairment Rating 20 to 39% Impaired (Score 34- 44) Hernandez Fall Scale Copyright Permission PT-OP-E Functional Tests Start: 02/12/23 17:12 Freq: Status: Active Protocol: Document 02/13/23 09:53 AM (Rec: 02/13/23 11:34 AM [id number]) Functional Tests 30 Second Sit to Stand Test Score 16 Four Step Square Test Score 12 sec PT-OP-G Mobility & Gait Start: 02/12/23 17:12 Freq: Status: Active Protocol: Document 02/13/23 09:53 AM (Rec: 02/13/23 11:34 AM [id number]) OP Gait Assessment Gait Gait Assistance Required: Independent Assistive Devices Assistive Device None Gait Deviations General Gait Pattern Decreased Stride Length,Wide Based Gait PT-OP-M Strength Start: 02/12/23 17:12 Freq: Status: Active Protocol: Document 02/13/23 09:53 AM (Rec: 02/13/23 11:34 AM [id number]) Hip Strength Hip Manual Muscle Testing Left Flexion (L2) 3+ Fair+ Abduction 3+ Fair+ Adduction 4+ Good+ External Rotation 4- Good- Internal Rotation 4- Good- Right Flexion (L2) 3+ Fair+ Abduction 4 Good Adduction 4+ Good+ External Rotation 4- Good- Internal Rotation 4- Good- Knee Strength Knee Manual Muscle Testing Left Flexion (S2) 4 Good Extension (L3) 4 Good Right Flexion (S2) 4+ Good+ Extension (L3) 4+ Good+ Ankle/Foot Strength Ankle and Foot Manual Muscle Testing Left Dorsiflexion (L4) 4 Good Plantarflexion (S1) 4 Good Right Dorsiflexion (L4) 5 Normal Plantarflexion (S1) 4+ Good+ PT-OP-Q Treatments Start: 02/12/23 17:12 Freq: Status: Active Protocol: Document 02/13/23 09:53 AM (Rec: 02/13/23 11:34 AM [id number]) Therapeutic Exercises Supine Exercises Bridge Side bilateral Reps/Minutes x5 Standing Exercises Chair squats Side bilateral Reps/Minutes x10 Therapeutic Activity Therapeutic Activity Exercise/activity review Comments Reviewed exercises that pt is currently doing. She is going for walks with unilateral cane , 15 min on recumbent, yoga, stretching, clamshells, bridges, STS Squats Energy conservation techniques Name Taking rest breaks during day Comments Do not front load activites in the morning/early afternoon. Take breaks to conserve energy for late afternoon and evening. Neuro Re-Education Treatment Balance Activities SLS Surface even Tandem Surface even Reps/Duration 30 sec PT-OP-T Assessment and Plan Start: 02/12/23 17:12 Freq: Status: Active Protocol: Document 02/13/23 09:53 AM (Rec: 02/13/23 11:34 AM [id number]) Physical Therapy Assessment Rehab Potential Rehabilitation Potential Excellent Evaluation Complexity Number of Personal Factors/Comorbidities 1-2 Number of Body Systems Impaired 3 Clinical Presentation at Evaluation Stable Impairments Impairments Balance,Coordination, Functional Activities, Functional Mobility,Gait,Pain, Posture,ROM,Sensation,Soft Tissue Mobility,Strength Goals Hip strength Impairment Hip strength impairment Impairment Pt with 3+to 4-/5 strength grossly at B hips. Short Term Goal (STG) Pt to demonstrate grossly 4/5 B hip strength. STG Duration 03/06/23 Residential Goal (LTG) Pt to demonstrate grossly 4+ to 5/5 B hip strength. LTG Duration 03/27/23 Rondon Impairment Rondon Balance score Impairment Pt with mild fall risk per Rondon balance score of 44/56. Short Term Goal (STG) Pt with Rondon balance score of 50/56 STG Duration 03/06/23 Station Baggage Porter Goal (LTG) Pt with Rondon balance score of 56/56 LTG Duration 03/27/23 LEFS Impairment Pt with score of 33/80 on LEFS Short Term Goal (STG) Pt with score of 45/80 on LEFS STG Duration 03/06/23 Residential Goal (LTG) Pt with score of 55/80 on LEFS LTG Duration 03/27/23 Three Impairment Balance impairment Impairment Pt able to tandem stance for 15 seconds. Short Term Goal (STG) Pt able to tandem stance fo 30 seconds. STG Duration 03/06/23 Residential Goal (LTG) Pt able to tandem stance for 45 seconds. LTG Duration 03/27/23 Two Impairment Fatigue Impairment Pt with reported fatigue and decrease endurance, particularly at the end of the day. Station Baggage Porter Goal (LTG) Pt to report 50% improvement in endurance/energy levels in the afternoon/evening. LTG Duration 03/27/23 Assessment Summary Assessment Aundrea Dunham presents to PT to address balance impairment and bilateral hip pain. Pt with recent fall with injury to L hand and R middle toe. Pt with mild sensation and strength impairments on L LE compared to R. Pt with fair stationary balance, though would benefit from further assessment of dynamic and higher level balance challenges at upcoming visits. Pt with weakness at bilateral hips with strength grossly at 3+/5-4-/5. Pt educated on energy conservation techniques to improve endurance and energy in the afternoon/ evening. Pt is very motivated to improve strength and balance to improve overall tolerance and safety with functional/recreational activites. Pt would benefit from continued PT to progress functional strength, endurance and balance as tolerated. Physical Therapy Plan Frequency and Duration Frequency of Treatment 2x/Week Duration of treatment (weeks) 6 Plan of Care Start Date 02/13/23 Plan of Care End Date 03/27/23 Therapeutic Interventions Therapeutic Interventions Balance Training,Coordination Training,Gait Training,Home Exercise Program,Joint Mobilizations,Manual Therapy, Neuromuscular Re-education, Patient/Caregiver Education, Self-Care/Home Management,Soft Tissue Mobilization, Therapeutic Activities, Therapeutic Exercises Modalities Cold Pack/Ice Massage,Hot Packs Next Visit Focus/Plan Next Note Type Treatment Note Next Visit Plan Progress functional strength and higher level dynamic balance tasks.
--- NOTE | 2023-02-13 09:53 | PT.OPPOC ---
Physical, Occupational & Speech Therapy At [facility] Current Diagnoses Other chronic pain (02/13/23) Pain in right hip (02/13/23) Pain in left hip (02/13/23) Pain in left leg (02/13/23) Other abnormalities of gait and mobility (02/13/23) History of falling (02/13/23) Visit Care Team Role Provider Type Brice Giron DO Attending Provider Physician Family Provider Primary Care Provider Referring Provider Specialty: Family Practice Address: [address] [place] [address], [facility] Email: [email or web address] Plan Of Care PT-OP-T Assessment and Plan Start: 02/12/23 17:12 Freq: Status: Active Protocol: Document 02/13/23 09:53 AM (Rec: 02/13/23 11:34 AM [id number]) Physical Therapy Assessment Rehab Potential Rehabilitation Potential Excellent Evaluation Complexity Number of Personal Factors/Comorbidities 1-2 Number of Body Systems Impaired 3 Clinical Presentation at Evaluation Stable Impairments Impairments Balance,Coordination, Functional Activities, Functional Mobility,Gait,Pain, Posture,ROM,Sensation,Soft Tissue Mobility,Strength Goals Hip strength Impairment Hip strength impairment Impairment Pt with 3+to 4-/5 strength grossly at B hips. Short Term Goal (STG) Pt to demonstrate grossly 4/5 B hip strength. STG Duration 03/06/23 Foot Press Operator Goal (LTG) Pt to demonstrate grossly 4+ to 5/5 B hip strength. LTG Duration 03/27/23 Rondon Impairment Rondon Balance score Impairment Pt with mild fall risk per Rondon balance score of 44/56. Short Term Goal (STG) Pt with Rondon balance score of 50/56 STG Duration 03/06/23 Residential Goal (LTG) Pt with Rondon balance score of 56/56 LTG Duration 03/27/23 LEFS Impairment Pt with score of 33/80 on LEFS Short Term Goal (STG) Pt with score of 45/80 on LEFS STG Duration 03/06/23 Foot Press Operator Goal (LTG) Pt with score of 55/80 on LEFS LTG Duration 03/27/23 Three Impairment Balance impairment Impairment Pt able to tandem stance for 15 seconds. Short Term Goal (STG) Pt able to tandem stance fo 30 seconds. STG Duration 03/06/23 Foot Press Operator Goal (LTG) Pt able to tandem stance for 45 seconds. LTG Duration 03/27/23 Two Impairment Fatigue Impairment Pt with reported fatigue and decrease endurance, particularly at the end of the day. Residential Goal (LTG) Pt to report 50% improvement in endurance/energy levels in the afternoon/evening. LTG Duration 03/27/23 Assessment Summary Assessment Aundrea Dunham presents to PT to address balance impairment and bilateral hip pain. Pt with recent fall with injury to L hand and R middle toe. Pt with mild sensation and strength impairments on L LE compared to R. Pt with fair stationary balance, though would benefit from further assessment of dynamic and higher level balance challenges at upcoming visits. Pt with weakness at bilateral hips with strength grossly at 3+/5-4-/5. Pt educated on energy conservation techniques to improve endurance and energy in the afternoon/ evening. Pt is very motivated to improve strength and balance to improve overall tolerance and safety with functional/recreational activites. Pt would benefit from continued PT to progress functional strength, endurance and balance as tolerated. Physical Therapy Plan Frequency and Duration Frequency of Treatment 2x/Week Duration of treatment (weeks) 6 Plan of Care Start Date 02/13/23 Plan of Care End Date 03/27/23 Therapeutic Interventions Therapeutic Interventions Balance Training,Coordination Training,Gait Training,Home Exercise Program,Joint Mobilizations,Manual Therapy, Neuromuscular Re-education, Patient/Caregiver Education, Self-Care/Home Management,Soft Tissue Mobilization, Therapeutic Activities, Therapeutic Exercises Modalities Cold Pack/Ice Massage,Hot Packs Next Visit Focus/Plan Next Note Type Treatment Note Next Visit Plan Progress functional strength and higher level dynamic balance tasks. Plan of Care Dates Plan of Care Start Date 02/13/23 Plan of Care End Date 03/27/23 Electronically Signed by: Gladys Shepard, PT 02/13/23 2197 If you are in agreement with this Plan of Care, please return a signed and dated copy. I have reviewed this Plan of Care and certify that the skilled therapy services above are required to meet the patient?s needs. Physician Signature Date Printed Name and Credentials Clinical Instructor Signature Printed Name and Credentials
--- NOTE | 2023-02-20 09:00 | PT.OTN ---
Current Diagnoses Other chronic pain (02/20/23) Pain in right hip (02/20/23) Pain in left hip (02/20/23) Pain in left leg (02/20/23) Other abnormalities of gait and mobility (02/20/23) History of falling (02/20/23) Physical Therapy Treatment Note PT-OP-A Visit Information Start: 02/12/23 17:12 Freq: Status: Active Protocol: Document 02/20/23 09:00 AM (Rec: 02/20/23 10:02 AM [id number]) Out-Patient Physical Therapy Visit Information Visit Information Visit Type Treatment Note Visit Start Time 09:03 Visit Stop Time 09:48 Total Visit Minutes 45 Visit Number 2 Number of ESCORT PATIENTS Visits 0 PT-OP-B Current Condition Start: 02/12/23 17:12 Freq: Status: Active Protocol: Document 02/20/23 09:00 AM (Rec: 02/20/23 10:02 AM [id number]) Current Condition History of Current Condition Onset Date Chronic History of Current Condition Pt reports that she has felt dizzy today. Pt reports that her hip pain has improved since she has been taking tylenol. Pt reports numbness at L foot following TIA. Pt reports that she has muscle fatigue by the evening. Pt reports that she has a general fatigue at at [employer] in the evening. Pt reports that she rides her recumbent bike 15 min daily. Pt reports that she walks with a walking stick with her daily 1/2 mile walks. Pt had a recent fall in December. She fell off of last 2 steps on to concrete. She broke her L pinky and R middle toe. Pt had TIA on October 2022. PT-OP-C Subjective Start: 02/12/23 17:12 Freq: Status: Active Protocol: Document 02/20/23 09:00 AM (Rec: 02/20/23 10:02 AM [id number]) OP-PT Subjective Patient Comments Patient Comments Pt reports that her hip has been feeling ok. Pt reports that she stopped taking celebrex. Pt reports that she continues to have significant fatigue in the evenings. Pt reports that she has been taking breaks to rest throughout the day and feels that helps some. PT-OP-D Balance Start: 02/12/23 17:12 Freq: Status: Active Protocol: Document 02/13/23 09:53 AM (Rec: 02/13/23 11:34 AM [id number]) OP-PT Balance Assessment Sitting Balance Static Sitting Balance Ability Normal Dynamic Sitting Balance Ability Normal Balance Tests Single Limb Standing Single Limb- Right 12 Single Limb- Left 8 Tandem Tandem Standing 15 seconds Rondon Balance Assessment Evaluation Sitting to Standing Ability Independent w/out Hands Unsupported Stance Safely- 2 minutes Sitting Unsupported, Feet on Floor Safely- 2 minutes Standing to Sitting Ability Safely, Minimal Hand Use Transfer Ability Safely, Minimal Hand Use Unsupported Stance- Eyes Closed Supervision, 10 seconds Unsupported Stance- Eyes Open Independent, 1 minute Pick- Up Object From Floor Independent/Safe Look Behind Shoulder - Standing Shifts Weight Well Turning 360 Degrees Turns slowly, but safely Unsupported Stance, Alternating Feet on 4 Steps w/Supervision Stair Unsupported Tandem Stance Assist to Step-15 seconds Unilateral Leg Stance Lifts Leg/Holds 10 secs Total Score Rondon Total Score (out of 56 points) 44 Rondon Impairment Rating 20 to 39% Impaired (Score 34- 44) Hernandez Fall Scale Copyright Permission PT-OP-E Functional Tests Start: 02/12/23 17:12 Freq: Status: Active Protocol: Document 02/13/23 09:53 AM (Rec: 02/13/23 11:34 AM [id number]) Functional Tests 30 Second Sit to Stand Test Score 16 Four Step Square Test Score 12 sec PT-OP-G Mobility & Gait Start: 02/12/23 17:12 Freq: Status: Active Protocol: Document 02/13/23 09:53 AM (Rec: 02/13/23 11:34 AM [id number]) OP Gait Assessment Gait Gait Assistance Required: Independent Assistive Devices Assistive Device None Gait Deviations General Gait Pattern Decreased Stride Length,Wide Based Gait PT-OP-M Strength Start: 02/12/23 17:12 Freq: Status: Active Protocol: Document 02/13/23 09:53 AM (Rec: 02/13/23 11:34 AM [id number]) Hip Strength Hip Manual Muscle Testing Left Flexion (L2) 3+ Fair+ Abduction 3+ Fair+ Adduction 4+ Good+ External Rotation 4- Good- Internal Rotation 4- Good- Right Flexion (L2) 3+ Fair+ Abduction 4 Good Adduction 4+ Good+ External Rotation 4- Good- Internal Rotation 4- Good- Knee Strength Knee Manual Muscle Testing Left Flexion (S2) 4 Good Extension (L3) 4 Good Right Flexion (S2) 4+ Good+ Extension (L3) 4+ Good+ Ankle/Foot Strength Ankle and Foot Manual Muscle Testing Left Dorsiflexion (L4) 4 Good Plantarflexion (S1) 4 Good Right Dorsiflexion (L4) 5 Normal Plantarflexion (S1) 4+ Good+ PT-OP-Q Treatments Start: 02/12/23 17:12 Freq: Status: Active Protocol: Document 02/20/23 09:00 AM (Rec: 02/20/23 10:02 AM [id number]) Gym Equipment Shuttle Recovery unilateral squat Details Unilateral squat Resistance 37# Shuttle Recovery Platform Stable Reps/Time x1 min Bilateral Squats Details Bilateral squat Resistance 75#, 3 navy Shuttle Recovery Platform Stable Reps/Time x1 min Therapeutic Exercises Supine Exercises Bridge Side bilateral Reps/Minutes x5 Standing Exercises Hip extension Standing Exercise Name Standing hip extension Equipment Used railing Reps/Minutes 2x10 Hip abduction Standing Exercise Name Standing hip abduction Side bilateral Equipment Used railing Reps/Minutes 2x10 Chair squats Side bilateral Reps/Minutes x10 Neuro Re-Education Treatment Balance Activities BOSU Details BOSU balance Surface uneven Equipment BOSU Reps/Duration 2x30 sec Tandem Details tandem Surface even and uneven (foam) Reps/Duration x30 sec ea Comments with and without head turns PT-OP-T Assessment and Plan Start: 02/12/23 17:12 Freq: Status: Active Protocol: Document 02/20/23 09:00 AM (Rec: 02/20/23 10:02 AM [id number]) Physical Therapy Assessment Rehab Potential Rehabilitation Potential Excellent Evaluation Complexity Number of Personal Factors/Comorbidities 1-2 Number of Body Systems Impaired 3 Clinical Presentation at Evaluation Stable Impairments Impairments Balance,Coordination, Functional Activities, Functional Mobility,Gait,Pain, Posture,ROM,Sensation,Soft Tissue Mobility,Strength Goals Hip strength Impairment Hip strength impairment Impairment Pt with 3+to 4-/5 strength grossly at B hips. Short Term Goal (STG) Pt to demonstrate grossly 4/5 B hip strength. STG Duration 03/06/23 Director Of Premium Seat Sales Goal (LTG) Pt to demonstrate grossly 4+ to 5/5 B hip strength. LTG Duration 03/27/23 Rondon Impairment Rondon Balance score Impairment Pt with mild fall risk per Rondon balance score of 44/56. Short Term Goal (STG) Pt with Rondon balance score of 50/56 STG Duration 03/06/23 Usp Goal (LTG) Pt with Rondon balance score of 56/56 LTG Duration 03/27/23 LEFS Impairment Pt with score of 33/80 on LEFS Short Term Goal (STG) Pt with score of 45/80 on LEFS STG Duration 03/06/23 Director Of Premium Seat Sales Goal (LTG) Pt with score of 55/80 on LEFS LTG Duration 03/27/23 Three Impairment Balance impairment Impairment Pt able to tandem stance for 15 seconds. Short Term Goal (STG) Pt able to tandem stance fo 30 seconds. STG Duration 03/06/23 Director Of Premium Seat Sales Goal (LTG) Pt able to tandem stance for 45 seconds. LTG Duration 03/27/23 Two Impairment Fatigue Impairment Pt with reported fatigue and decrease endurance, particularly at the end of the day. Director Of Premium Seat Sales Goal (LTG) Pt to report 50% improvement in endurance/energy levels in the afternoon/evening. LTG Duration 03/27/23 Assessment Summary Assessment Pt with reported fatigue of glutes with shuttle squats and standing hip activities. Pt required rest breaks during session today. Blood pressure at 130/83 today. Pt challenged with balance activites that require altered vision and uneven surface. Pt denied dizziness following tx session today. Pt would benefit from continued PT to progress balance, strength and mobility to improve tolerance to functional tasks. Physical Therapy Plan Frequency and Duration Frequency of Treatment 2x/Week Duration of treatment (weeks) 6 Plan of Care Start Date 02/13/23 Plan of Care End Date 03/27/23 Therapeutic Interventions Therapeutic Interventions Balance Training,Coordination Training,Gait Training,Home Exercise Program,Joint Mobilizations,Manual Therapy, Neuromuscular Re-education, Patient/Caregiver Education, Self-Care/Home Management,Soft Tissue Mobilization, Therapeutic Activities, Therapeutic Exercises Modalities Cold Pack/Ice Massage,Hot Packs Next Visit Focus/Plan Next Note Type Treatment Note Next Visit Plan Progress functional strength and higher level dynamic balance tasks.
--- NOTE | 2023-02-26 10:35 | PT.OTN ---
Current Diagnoses Other chronic pain (02/26/23) Pain in right hip (02/26/23) Pain in left hip (02/26/23) Pain in left leg (02/26/23) Other abnormalities of gait and mobility (02/26/23) History of falling (02/26/23) Physical Therapy Treatment Note PT-OP-A Visit Information Start: 02/12/23 17:12 Freq: Status: Active Protocol: Document 02/26/23 10:35 AM (Rec: 02/26/23 11:27 AM [id number]) Out-Patient Physical Therapy Visit Information Visit Information Visit Type Treatment Note Visit Start Time 10:36 Visit Stop Time 11:20 Total Visit Minutes 44 Visit Number 3 Number of BROKE HANDLER Visits 0 Precautions Precautions pacemaker, seizures-Pt reports that these have typically happened at night. 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 Pt reports numbness at L foot following TIA. Pt reports that she has muscle fatigue by the evening. Pt reports that she has a general fatigue at at [facility] in the evening. Pt reports that she rides her recumbent bike 15 min daily. Pt reports that she walks with a walking stick with her daily 1/2 mile walks. Pt had a recent fall in December. She fell off of last 2 steps on to concrete. She broke her L pinky and R middle toe. Pt had TIA on October 2022. PT-OP-C Subjective Start: 02/12/23 17:12 Freq: Status: Active Protocol: Document 02/26/23 10:35 AM (Rec: 02/26/23 11:27 AM [id number]) OP-PT Subjective Patient Comments Patient Comments Pt reports that she continues to feel frustrated by endurance and strength deficits. Pt reports that it is sometimes hard to walk after she has been sitting for a while because of L LE strength impairments. PT-OP-D Balance Start: 02/12/23 17:12 Freq: Status: Active Protocol: Document 02/13/23 09:53 AM (Rec: 02/13/23 11:34 AM [id number]) OP-PT Balance Assessment Sitting Balance Static Sitting Balance Ability Normal Dynamic Sitting Balance Ability Normal Balance Tests Single Limb Standing Single Limb- Right 12 Single Limb- Left 8 Tandem Tandem Standing 15 seconds Rondon Balance Assessment Evaluation Sitting to Standing Ability Independent w/out Hands Unsupported Stance Safely- 2 minutes Sitting Unsupported, Feet on Floor Safely- 2 minutes Standing to Sitting Ability Safely, Minimal Hand Use Transfer Ability Safely, Minimal Hand Use Unsupported Stance- Eyes Closed Supervision, 10 seconds Unsupported Stance- Eyes Open Independent, 1 minute Pick- Up Object From Floor Independent/Safe Look Behind Shoulder - Standing Shifts Weight Well Turning 360 Degrees Turns slowly, but safely Unsupported Stance, Alternating Feet on 4 Steps w/Supervision Stair Unsupported Tandem Stance Assist to Step-15 seconds Unilateral Leg Stance Lifts Leg/Holds 10 secs Total Score Rondon Total Score (out of 56 points) 44 Rondon Impairment Rating 20 to 39% Impaired (Score 34- 44) Hernandez Fall Scale Copyright Permission PT-OP-E Functional Tests Start: 02/12/23 17:12 Freq: Status: Active Protocol: Document 02/13/23 09:53 AM (Rec: 02/13/23 11:34 AM [id number]) Functional Tests 30 Second Sit to Stand Test Score 16 Four Step Square Test Score 12 sec PT-OP-G Mobility & Gait Start: 02/12/23 17:12 Freq: Status: Active Protocol: Document 02/13/23 09:53 AM (Rec: 02/13/23 11:34 AM [id number]) OP Gait Assessment Gait Gait Assistance Required: Independent Assistive Devices Assistive Device None Gait Deviations General Gait Pattern Decreased Stride Length,Wide Based Gait PT-OP-M Strength Start: 02/12/23 17:12 Freq: Status: Active Protocol: Document 02/13/23 09:53 AM (Rec: 02/13/23 11:34 AM [id number]) Hip Strength Hip Manual Muscle Testing Left Flexion (L2) 3+ Fair+ Abduction 3+ Fair+ Adduction 4+ Good+ External Rotation 4- Good- Internal Rotation 4- Good- Right Flexion (L2) 3+ Fair+ Abduction 4 Good Adduction 4+ Good+ External Rotation 4- Good- Internal Rotation 4- Good- Knee Strength Knee Manual Muscle Testing Left Flexion (S2) 4 Good Extension (L3) 4 Good Right Flexion (S2) 4+ Good+ Extension (L3) 4+ Good+ Ankle/Foot Strength Ankle and Foot Manual Muscle Testing Left Dorsiflexion (L4) 4 Good Plantarflexion (S1) 4 Good Right Dorsiflexion (L4) 5 Normal Plantarflexion (S1) 4+ Good+ PT-OP-Q Treatments Start: 02/12/23 17:12 Freq: Status: Active Protocol: Document 02/26/23 10:35 AM (Rec: 02/26/23 11:27 AM [id number]) Cardio Equipment Recumbent Stepper (Sci-Fit) Duration (Minutes) 6 Resistance 2.5 Seat Position 9 Gym Equipment Shuttle Recovery unilateral squat Details Unilateral squat Resistance 37# on R and 37#-25# on L Shuttle Recovery Platform Stable Reps/Time x1 min Bilateral Squats Details Bilateral squat Resistance 75#, 1 new Shuttle Recovery Platform Stable Reps/Time 2x1 min Therapeutic Exercises Standing Exercises Side step Standing Exercise Name Resisted side step Side bilateral Resistance [place] TB Equipment Used railing Reps/Minutes 2x20 ft ea direction Hip extension Standing Exercise Name Standing hip extension Resistance [place] TB Equipment Used railing Reps/Minutes 2x10 Hip abduction Standing Exercise Name Standing hip abduction Side bilateral Resistance [place] TB Equipment Used railing Reps/Minutes 2x10 Neuro Re-Education Treatment Balance Activities Wobble board Details Wooden board Comments Turn head STS, EC BOSU Details BOSU balance Surface uneven Equipment BOSU PT-OP-T Assessment and Plan Start: 02/12/23 17:12 Freq: Status: Active Protocol: Document 02/26/23 10:35 AM (Rec: 02/26/23 11:27 AM [id number]) Physical Therapy Assessment Rehab Potential Rehabilitation Potential Excellent Evaluation Complexity Number of Personal Factors/Comorbidities 1-2 Number of Body Systems Impaired 3 Clinical Presentation at Evaluation Stable Impairments Impairments Balance,Coordination, Functional Activities, Functional Mobility,Gait,Pain, Posture,ROM,Sensation,Soft Tissue Mobility,Strength Goals Hip strength Impairment Hip strength impairment Impairment Pt with 3+to 4-/5 strength grossly at B hips. Short Term Goal (STG) Pt to demonstrate grossly 4/5 B hip strength. STG Duration 03/06/23 [facility] Goal (LTG) Pt to demonstrate grossly 4+ to 5/5 B hip strength. LTG Duration 03/27/23 Rondon Impairment Rondon Balance score Impairment Pt with mild fall risk per Rondon balance score of 44/56. Short Term Goal (STG) Pt with Rondon balance score of 50/56 STG Duration 03/06/23 [facility] Goal (LTG) Pt with Rondon balance score of 56/56 LTG Duration 03/27/23 LEFS Impairment Pt with score of 33/80 on LEFS Short Term Goal (STG) Pt with score of 45/80 on LEFS STG Duration 03/06/23 [facility] Goal (LTG) Pt with score of 55/80 on LEFS LTG Duration 03/27/23 Three Impairment Balance impairment Impairment Pt able to tandem stance for 15 seconds. Short Term Goal (STG) Pt able to tandem stance fo 30 seconds. STG Duration 03/06/23 [facility] Goal (LTG) Pt able to tandem stance for 45 seconds. LTG Duration 03/27/23 Two Impairment Fatigue Impairment Pt with reported fatigue and decrease endurance, particularly at the end of the day. [facility]idential [facility]stance Abuse Counsel[facility] Goal (LTG) Pt to report 50% improvement in endurance/energy levels in the afternoon/evening. LTG Duration 03/27/23 Assessment Summary Assessment Pt demonstrated more pronounced gait impairment today at start of PT with decreased step length on L LE. Pt able to tolerated resistance with standing hip exercises today. Pt demonstrated fatigue with shuttle squats today and required decreased resistance with unilateral squat on L. Pt did not require rest breaks during tx session today. Pt would benefit from continued PT to progress strenth, endurance and balance to decrease fall risk and improve tolerance to functional tasks . Physical Therapy Plan Frequency and Duration Frequency of Treatment 2x/Week Duration of treatment (weeks) 6 Plan of Care Start Date 02/13/23 Plan of Care End Date 03/27/23 Therapeutic Interventions Therapeutic Interventions Balance Training,Coordination Training,Gait Training,Home Exercise Program,Joint Mobilizations,Manual Therapy, Neuromuscular Re-education, Patient/Caregiver Education, Self-Care/Home Management,Soft Tissue Mobilization, Therapeutic Activities, Therapeutic Exercises Modalities Cold Pack/Ice Massage,Hot Packs Next Visit Focus/Plan Next Note Type Treatment Note Next Visit Plan Progress functional strength and higher level dynamic balance tasks.
--- NOTE | 2023-03-01 10:31 | PT.OTN ---
Current Diagnoses Other chronic pain (03/01/23) Pain in right hip (03/01/23) Pain in left hip (03/01/23) Pain in left leg (03/01/23) Other abnormalities of gait and mobility (03/01/23) History of falling (03/01/23) Physical Therapy Treatment Note PT-OP-A Visit Information Start: 02/12/23 17:12 Freq: Status: Active Protocol: Document 03/01/23 10:31 AM (Rec: 03/01/23 11:17 AM [id number]) Out-Patient Physical Therapy Visit Information Visit Information Visit Type Treatment Note Visit Start Time 10:32 Visit Stop Time 11:15 Total Visit Minutes 43 Visit Number 4 Number of CIRCUS TRAINER Visits 0 PT-OP-B Current Condition Start: 02/12/23 17:12 Freq: Status: Active Protocol: Document 02/26/23 10:35 AM (Rec: 02/26/23 11:27 AM [id number]) Current Condition History of Current Condition Onset Date Chronic History of Current Condition Pt reports that her hip pain has improved since she has been taking tylenol. Pt reports numbness at L foot following TIA. Pt reports that she has muscle fatigue by the evening. Pt reports that she has a general fatigue at at [facility] in the evening. Pt reports that she rides her recumbent bike 15 min daily. Pt reports that she walks with a walking stick with her daily 1/2 mile walks. Pt had a recent fall in December. She fell off of last 2 steps on to concrete. She broke her L pinky and R middle toe. Pt had TIA on October 2022. PT-OP-C Subjective Start: 02/12/23 17:12 Freq: Status: Active Protocol: Document 03/01/23 10:31 AM (Rec: 03/01/23 11:17 AM [id number]) OP-PT Subjective Patient Comments Patient Comments Pt reports that she had muscle soreness following last tx. Pt reports that she is tired today because she woke at 4am today. Pt reports that she requires standing rest break to catch her breath when ascending flight of stairs. Pt reports that she feels that her left leg catches on the step when descending stairs. PT-OP-D Balance Start: 02/12/23 17:12 Freq: Status: Active Protocol: Document 02/13/23 09:53 AM (Rec: 02/13/23 11:34 AM [id number]) OP-PT Balance Assessment Sitting Balance Static Sitting Balance Ability Normal Dynamic Sitting Balance Ability Normal Balance Tests Single Limb Standing Single Limb- Right 12 Single Limb- Left 8 Tandem Tandem Standing 15 seconds Rondon Balance Assessment Evaluation Sitting to Standing Ability Independent w/out Hands Unsupported Stance Safely- 2 minutes Sitting Unsupported, Feet on Floor Safely- 2 minutes Standing to Sitting Ability Safely, Minimal Hand Use Transfer Ability Safely, Minimal Hand Use Unsupported Stance- Eyes Closed Supervision, 10 seconds Unsupported Stance- Eyes Open Independent, 1 minute Pick- Up Object From Floor Independent/Safe Look Behind Shoulder - Standing Shifts Weight Well Turning 360 Degrees Turns slowly, but safely Unsupported Stance, Alternating Feet on 4 Steps w/Supervision Stair Unsupported Tandem Stance Assist to Step-15 seconds Unilateral Leg Stance Lifts Leg/Holds 10 secs Total Score Rondon Total Score (out of 56 points) 44 Rondon Impairment Rating 20 to 39% Impaired (Score 34- 44) Hernandez Fall Scale Copyright Permission PT-OP-E Functional Tests Start: 02/12/23 17:12 Freq: Status: Active Protocol: Document 02/13/23 09:53 AM (Rec: 02/13/23 11:34 AM [id number]) Functional Tests 30 Second Sit to Stand Test Score 16 Four Step Square Test Score 12 sec PT-OP-G Mobility & Gait Start: 02/12/23 17:12 Freq: Status: Active Protocol: Document 02/13/23 09:53 AM (Rec: 02/13/23 11:34 AM [id number]) OP Gait Assessment Gait Gait Assistance Required: Independent Assistive Devices Assistive Device None Gait Deviations General Gait Pattern Decreased Stride Length,Wide Based Gait PT-OP-M Strength Start: 02/12/23 17:12 Freq: Status: Active Protocol: Document 02/13/23 09:53 AM (Rec: 02/13/23 11:34 AM [id number]) Hip Strength Hip Manual Muscle Testing Left Flexion (L2) 3+ Fair+ Abduction 3+ Fair+ Adduction 4+ Good+ External Rotation 4- Good- Internal Rotation 4- Good- Right Flexion (L2) 3+ Fair+ Abduction 4 Good Adduction 4+ Good+ External Rotation 4- Good- Internal Rotation 4- Good- Knee Strength Knee Manual Muscle Testing Left Flexion (S2) 4 Good Extension (L3) 4 Good Right Flexion (S2) 4+ Good+ Extension (L3) 4+ Good+ Ankle/Foot Strength Ankle and Foot Manual Muscle Testing Left Dorsiflexion (L4) 4 Good Plantarflexion (S1) 4 Good Right Dorsiflexion (L4) 5 Normal Plantarflexion (S1) 4+ Good+ PT-OP-Q Treatments Start: 02/12/23 17:12 Freq: Status: Active Protocol: Document 03/01/23 10:31 AM (Rec: 03/01/23 11:17 AM [id number]) Cardio Equipment Recumbent Stepper (Sci-Fit) Duration (Minutes) 6 Resistance 3 Seat Position 9 Therapeutic Exercises Standing Exercises Lunge Standing Exercise Name Modified standing lunge with BOSU in between legs Equipment Used BOSU and // bars Reps/Minutes 2x5 Comments Mini lunge with BOSU between legs, minimal use of UE Step-up Standing Exercise Name Step-up forward at 6 in step Side bilateral Reps/Minutes x10 Comments No use of UE Side step Standing Exercise Name Resisted side step Side bilateral Resistance [place] TB Equipment Used railing Reps/Minutes 2x20 ft ea direction Hip extension Standing Exercise Name Standing hip extension Resistance [place] TB Equipment Used railing Reps/Minutes 2x10 Hip abduction Standing Exercise Name Standing hip abduction Side bilateral Resistance [place] TB Equipment Used railing Reps/Minutes 2x10 Other Exercises Hip flexor stretch Other Exercise Name Kneeling hip flexor stretch Side bilateral Equipment Used foam pad under knee at // bars for UE support Reps/Minutes x1 min ea LE Neuro Re-Education Treatment Balance Activities Tandem Details tandem stance and tandem walking Surface even Reps/Duration x1 min ea PT-OP-T Assessment and Plan Start: 02/12/23 17:12 Freq: Status: Active Protocol: Document 03/01/23 10:31 AM (Rec: 03/01/23 11:17 AM [id number]) Physical Therapy Assessment Impairments Impairments Balance,Coordination, Functional Activities, Functional Mobility,Gait,Pain, Posture,ROM,Sensation,Soft Tissue Mobility,Strength Goals Hip strength Impairment Hip strength impairment Impairment Pt with 3+to 4-/5 strength grossly at B hips. Short Term Goal (STG) Pt to demonstrate grossly 4/5 B hip strength. STG Duration 03/06/23 [employer] Goal (LTG) Pt to demonstrate grossly 4+ to 5/5 B hip strength. LTG Duration 03/27/23 Rondon Impairment Rondon Balance score Impairment Pt with mild fall risk per Rondon balance score of 44/56. Short Term Goal (STG) Pt with Rondon balance score of 50/56 STG Duration 03/06/23 [employer] Goal (LTG) Pt with Rondon balance score of 56/56 LTG Duration 03/27/23 LEFS Impairment Pt with score of 33/80 on LEFS Short Term Goal (STG) Pt with score of 45/80 on LEFS STG Duration 03/06/23 [employer] Goal (LTG) Pt with score of 55/80 on LEFS LTG Duration 03/27/23 Three Impairment Balance impairment Impairment Pt able to tandem stance for 15 seconds. Short Term Goal (STG) Pt able to tandem stance fo 30 seconds. STG Duration 03/06/23 [facility] Goal (LTG) Pt able to tandem stance for 45 seconds. LTG Duration 03/27/23 Two Impairment Fatigue Impairment Pt with reported fatigue and decrease endurance, particularly at the end of the day. Skilled Nursing Goal (LTG) Pt to report 50% improvement in endurance/energy levels in the afternoon/evening. LTG Duration 03/27/23 Assessment Summary Assessment Pt continues to demonstrate fatigue with exercises, requiring occasional rest break. Pt with balance challenge with functional strengthening tasks including step-ups and lunges. Pt required min use of hands with lunges and able to do step- ups without UE support with close SBA. Pt challenged with balance exercises at end of tx session today. Pt will benefit from continued PT to progress strength, endurance and balance to improve tolerance to functional tasks. Physical Therapy Plan Frequency and Duration Frequency of Treatment 2x/Week Duration of treatment (weeks) 6 Plan of Care Start Date 02/13/23 Plan of Care End Date 03/27/23 Therapeutic Interventions Therapeutic Interventions Balance Training,Coordination Training,Gait Training,Home Exercise Program,Joint Mobilizations,Manual Therapy, Neuromuscular Re-education, Patient/Caregiver Education, Self-Care/Home Management,Soft Tissue Mobilization, Therapeutic Activities, Therapeutic Exercises Modalities Cold Pack/Ice Massage,Hot Packs Next Visit Focus/Plan Next Note Type Treatment Note Next Visit Plan Assess STG, Progress functional strength and higher level dynamic balance tasks.
--- NOTE | 2023-03-08 16:06 | PT.OTN ---
Current Diagnoses Other chronic pain (03/08/23) Pain in right hip (03/08/23) Pain in left hip (03/08/23) Pain in left leg (03/08/23) Other abnormalities of gait and mobility (03/08/23) History of falling (03/08/23) Physical Therapy Treatment Note PT-OP-A Visit Information Start: 02/12/23 17:12 Freq: Status: Active Protocol: Document 03/08/23 16:06 AM (Rec: 03/08/23 16:18 AM [id number]) Out-Patient Physical Therapy Visit Information Visit Information Visit Type Progress Note Visit Start Time 16:06 Visit Stop Time 16:51 Total Visit Minutes 45 Visit Number 5 Number of COSTUME DIRECTOR Visits 0 PT-OP-B Current Condition Start: 02/12/23 17:12 Freq: Status: Active Protocol: Document 02/26/23 10:35 AM (Rec: 02/26/23 11:27 AM [id number]) Current Condition History of Current Condition Onset Date Chronic History of Current Condition Pt reports that her hip pain has improved since she has been taking tylenol. Pt reports numbness at L foot following TIA. Pt reports that she has muscle fatigue by the evening. Pt reports that she has a general fatigue at at [facility] in the evening. Pt reports that she rides her recumbent bike 15 min daily. Pt reports that she walks with a walking stick with her daily 1/2 mile walks. Pt had a recent fall in December. She fell off of last 2 steps on to concrete. She broke her L pinky and R middle toe. Pt had TIA on October 2022. PT-OP-C Subjective Start: 02/12/23 17:12 Freq: Status: Active Protocol: Document 03/08/23 16:06 AM (Rec: 03/08/23 16:33 AM [id number]) OP-PT Subjective Patient Comments Patient Comments Pt had a busy day and reports feeling tired today. PT-OP-D Balance Start: 02/12/23 17:12 Freq: Status: Active Protocol: Document 03/08/23 16:06 AM (Rec: 03/08/23 16:33 AM [id number]) Rondon Balance Assessment Evaluation Sitting to Standing Ability Independent w/out Hands Unsupported Stance Safely- 2 minutes Sitting Unsupported, Feet on Floor Safely- 2 minutes Standing to Sitting Ability Safely, Minimal Hand Use Transfer Ability Safely, Minimal Hand Use Unsupported Stance- Eyes Closed Safely, 10 seconds Unsupported Stance- Eyes Open Independent, 1 minute Reaching Forward Standing Confidently, 10 inches Pick- Up Object From Floor Independent/Safe Look Behind Shoulder - Standing Shifts Weight Well Turning 360 Degrees Turns Bilateral, < 4 secs Unsupported Stance, Alternating Feet on (I)- 8 Steps in 20 secs Stair Unsupported Tandem Stance Holds Tandem- 30 seconds Unilateral Leg Stance Lifts Leg/Holds 5-10 secs Total Score Rondon Total Score (out of 56 points) 54 PT-OP-E Functional Tests Start: 02/12/23 17:12 Freq: Status: Active Protocol: Document 02/13/23 09:53 AM (Rec: 02/13/23 11:34 AM [id number]) Functional Tests 30 Second Sit to Stand Test Score 16 Four Step Square Test Score 12 sec PT-OP-G Mobility & Gait Start: 02/12/23 17:12 Freq: Status: Active Protocol: Document 02/13/23 09:53 AM (Rec: 02/13/23 11:34 AM [id number]) OP Gait Assessment Gait Gait Assistance Required: Independent Assistive Devices Assistive Device None Gait Deviations General Gait Pattern Decreased Stride Length,Wide Based Gait PT-OP-M Strength Start: 02/12/23 17:12 Freq: Status: Active Protocol: Document 02/13/23 09:53 AM (Rec: 02/13/23 11:34 AM [id number]) Hip Strength Hip Manual Muscle Testing Left Flexion (L2) 3+ Fair+ Abduction 3+ Fair+ Adduction 4+ Good+ External Rotation 4- Good- Internal Rotation 4- Good- Right Flexion (L2) 3+ Fair+ Abduction 4 Good Adduction 4+ Good+ External Rotation 4- Good- Internal Rotation 4- Good- Knee Strength Knee Manual Muscle Testing Left Flexion (S2) 4 Good Extension (L3) 4 Good Right Flexion (S2) 4+ Good+ Extension (L3) 4+ Good+ Ankle/Foot Strength Ankle and Foot Manual Muscle Testing Left Dorsiflexion (L4) 4 Good Plantarflexion (S1) 4 Good Right Dorsiflexion (L4) 5 Normal Plantarflexion (S1) 4+ Good+ PT-OP-Q Treatments Start: 02/12/23 17:12 Freq: Status: Active Protocol: Document 03/08/23 16:06 AM (Rec: 03/08/23 16:18 AM [id number]) Cardio Equipment Recumbent Stepper (Sci-Fit) Duration (Minutes) 6 Resistance 3 Seat Position 9 Neuro Re-Education Treatment Balance Activities Rondon Details Rondon balance Dynamic gait activities Details Head turns, EC Tandem Details tandem stance Reps/Duration 4x30 sec PT-OP-T Assessment and Plan Start: 02/12/23 17:12 Freq: Status: Active Protocol: Document 03/08/23 16:06 AM (Rec: 03/08/23 16:18 AM [id number]) Physical Therapy Assessment Impairments Impairments Balance,Coordination, Functional Activities, Functional Mobility,Gait,Pain, Posture,ROM,Sensation,Soft Tissue Mobility,Strength Goals Hip strength Impairment Hip strength impairment Impairment Pt with 3+to 4-/5 strength grossly at B hips. Short Term Goal (STG) Pt to demonstrate grossly 4/5 B hip strength. 03/08/23: Goal met with 4/5 B hip strength STG Duration 03/06/23 Charting Clerk Goal (LTG) Pt to demonstrate grossly 4+ to 5/5 B hip strength. LTG Duration 03/27/23 Rondon Impairment Rondon Balance score Impairment Pt with mild fall risk per Rondon balance score of 44/56. Short Term Goal (STG) Pt with Rondon balance score of 50/56 03/08/23-GOAL MET with Rondon score of 54/56 STG Duration 03/06/23 Charting Clerk Goal (LTG) Pt with Rondon balance score of 56/56 LTG Duration 03/27/23 LEFS Impairment Pt with score of 33/80 on LEFS Short Term Goal (STG) Pt with score of 45/80 on LEFS 03/08/23: No change since IE. Pt with score of 33/80 STG Duration 03/06/23 Intermediate Goal (LTG) Pt with score of 55/80 on LEFS LTG Duration 03/27/23 Three Impairment Balance impairment Impairment Pt able to tandem stance for 15 seconds. Short Term Goal (STG) Pt able to tandem stance for 30 seconds. 03/08/23-GOAL MET, Pt able to hold for 30+ seconds bilaterally. STG Duration 03/06/23 Charting Clerk Goal (LTG) Pt able to tandem stance for 45 seconds. LTG Duration 03/27/23 Two Impairment Fatigue Impairment Pt with reported fatigue and decrease endurance, particularly at the end of the day. Charting Clerk Goal (LTG) Pt to report 50% improvement in endurance/energy levels in the afternoon/evening. LTG Duration 03/27/23 Progress Towards Goals Progress Towards Goals Progressing Toward Goals Assessment Summary Assessment Pt with increased fatigue levels secondary to time of appt time at end of busy day. Pt with improved strength ratings compared to IE. Pt demonstrates improved balance since start of PT per Rondon balance and tandem balance. Pt challenged with dynamic gait activities today with head turns. Pt demonstrated increased asymetrical gait today, particularly with dynamic gait activities when vision was altered. Pt required more rest breaks secondary to fatigue. PT discussed neuro fatigue and importance of recognizing when to rest. Pt would benefit from continued PT to progress strength, balance, mobility and endurance to improve tolerance to functional and recreational tasks. Physical Therapy Plan Frequency and Duration Frequency of Treatment 2x/Week Duration of treatment (weeks) 6 Plan of Care Start Date 02/13/23 Plan of Care End Date 03/27/23 Therapeutic Interventions Therapeutic Interventions Balance Training,Coordination Training,Gait Training,Home Exercise Program,Joint Mobilizations,Manual Therapy, Neuromuscular Re-education, Patient/Caregiver Education, Self-Care/Home Management,Soft Tissue Mobilization, Therapeutic Activities, Therapeutic Exercises Modalities Cold Pack/Ice Massage,Hot Packs Next Visit Focus/Plan Next Note Type Treatment Note Next Visit Plan Try a 6MWT next session, Progress functional strength and higher level dynamic gait/ balance activities.
--- NOTE | 2023-03-21 12:17 | PT.OTN ---
Current Diagnoses Other chronic pain (03/21/23) Pain in right hip (03/21/23) Pain in left hip (03/21/23) Pain in left leg (03/21/23) Other abnormalities of gait and mobility (03/21/23) History of falling (03/21/23) Physical Therapy Treatment Note PT-OP-A Visit Information Start: 02/12/23 17:12 Freq: Status: Active Protocol: Document 03/21/23 12:17 AM (Rec: 03/21/23 13:24 AM [id number]) Out-Patient Physical Therapy Visit Information Visit Information Visit Type Treatment Note Visit Start Time 12:17 Visit Stop Time 13:00 Total Visit Minutes 43 Visit Number 6 Number of DOLL MAKER Visits 0 PT-OP-B Current Condition Start: 02/12/23 17:12 Freq: Status: Active Protocol: Document 02/26/23 10:35 AM (Rec: 02/26/23 11:27 AM [id number]) Current Condition History of Current Condition Onset Date Chronic History of Current Condition Pt reports that her hip pain has improved since she has been taking tylenol. Pt reports numbness at L foot following TIA. Pt reports that she has muscle fatigue by the evening. Pt reports that she has a general fatigue at at [facility] in the evening. Pt reports that she rides her recumbent bike 15 min daily. Pt reports that she walks with a walking stick with her daily 1/2 mile walks. Pt had a recent fall in December. She fell off of last 2 steps on to concrete. She broke her L pinky and R middle toe. Pt had TIA on October 2022. PT-OP-C Subjective Start: 02/12/23 17:12 Freq: Status: Active Protocol: Document 03/21/23 12:17 AM (Rec: 03/21/23 13:24 AM [id number]) OP-PT Subjective Patient Comments Patient Comments Pt reports that she has been traveling recently. Pt reports that both of her legs got swollen with sitting in the car. PT-OP-D Balance Start: 02/12/23 17:12 Freq: Status: Active Protocol: Document 03/08/23 16:06 AM (Rec: 03/08/23 16:33 AM [id number]) Rondon Balance Assessment Evaluation Sitting to Standing Ability Independent w/out Hands Unsupported Stance Safely- 2 minutes Sitting Unsupported, Feet on Floor Safely- 2 minutes Standing to Sitting Ability Safely, Minimal Hand Use Transfer Ability Safely, Minimal Hand Use Unsupported Stance- Eyes Closed Safely, 10 seconds Unsupported Stance- Eyes Open Independent, 1 minute Reaching Forward Standing Confidently, 10 inches Pick- Up Object From Floor Independent/Safe Look Behind Shoulder - Standing Shifts Weight Well Turning 360 Degrees Turns Bilateral, < 4 secs Unsupported Stance, Alternating Feet on (I)- 8 Steps in 20 secs Stair Unsupported Tandem Stance Holds Tandem- 30 seconds Unilateral Leg Stance Lifts Leg/Holds 5-10 secs Total Score Rondon Total Score (out of 56 points) 54 PT-OP-E Functional Tests Start: 02/12/23 17:12 Freq: Status: Active Protocol: Document 02/13/23 09:53 AM (Rec: 02/13/23 11:34 AM [id number]) Functional Tests 30 Second Sit to Stand Test Score 16 Four Step Square Test Score 12 sec PT-OP-G Mobility & Gait Start: 02/12/23 17:12 Freq: Status: Active Protocol: Document 02/13/23 09:53 AM (Rec: 02/13/23 11:34 AM [id number]) OP Gait Assessment Gait Gait Assistance Required: Independent Assistive Devices Assistive Device None Gait Deviations General Gait Pattern Decreased Stride Length,Wide Based Gait PT-OP-M Strength Start: 02/12/23 17:12 Freq: Status: Active Protocol: Document 02/13/23 09:53 AM (Rec: 02/13/23 11:34 AM [id number]) Hip Strength Hip Manual Muscle Testing Left Flexion (L2) 3+ Fair+ Abduction 3+ Fair+ Adduction 4+ Good+ External Rotation 4- Good- Internal Rotation 4- Good- Right Flexion (L2) 3+ Fair+ Abduction 4 Good Adduction 4+ Good+ External Rotation 4- Good- Internal Rotation 4- Good- Knee Strength Knee Manual Muscle Testing Left Flexion (S2) 4 Good Extension (L3) 4 Good Right Flexion (S2) 4+ Good+ Extension (L3) 4+ Good+ Ankle/Foot Strength Ankle and Foot Manual Muscle Testing Left Dorsiflexion (L4) 4 Good Plantarflexion (S1) 4 Good Right Dorsiflexion (L4) 5 Normal Plantarflexion (S1) 4+ Good+ PT-OP-Q Treatments Start: 02/12/23 17:12 Freq: Status: Active Protocol: Document 03/21/23 12:17 AM (Rec: 03/21/23 13:24 AM [id number]) Cardio Equipment Recumbent Stepper (Sci-Fit) Duration (Minutes) 6 Resistance 3 Seat Position 9 Gym Equipment Cable Column (Body Solid) Trunk iso Details Side steps and fwd/back Resistance 10# for side to side, 20# for fwd/back Reps/Time x3 ea Shuttle Recovery unilateral squat Details unilateral Resistance 37# (1 teal) Shuttle Recovery Platform Stable Reps/Time 2x30 sec Bilateral Squats Details Bilateral squat Resistance 75#, (2 navy) Shuttle Recovery Platform Stable Reps/Time 2x1 min Therapeutic Exercises Standing Exercises Deadlift Standing Exercise Name Deadlift with dumbbell Resistance 5# in each hand Reps/Minutes x10 Neuro Re-Education Treatment Balance Activities SLS Details SLS Reps/Duration 2x30 sec ea Tandem Details tandem stance Reps/Duration 2x30 sec PT-OP-T Assessment and Plan Start: 02/12/23 17:12 Freq: Status: Active Protocol: Document 03/21/23 12:17 AM (Rec: 03/21/23 13:24 AM [id number]) Physical Therapy Assessment Goals Hip strength Impairment Hip strength impairment Impairment Pt with 3+to 4-/5 strength grossly at B hips. Short Term Goal (STG) Pt to demonstrate grossly 4/5 B hip strength. 03/08/23: Goal met with 4/5 B hip strength STG Duration 03/06/23 Half-Way Goal (LTG) Pt to demonstrate grossly 4+ to 5/5 B hip strength. LTG Duration 03/27/23 Rondon Impairment Rondon Balance score Impairment Pt with mild fall risk per Rondon balance score of 44/56. Short Term Goal (STG) Pt with Rondon balance score of 50/56 03/08/23-GOAL MET with Rondon score of 54/56 STG Duration 03/06/23 Entry Level Marketing Representative Goal (LTG) Pt with Rondon balance score of 56/56 LTG Duration 03/27/23 LEFS Impairment Pt with score of 33/80 on LEFS Short Term Goal (STG) Pt with score of 45/80 on LEFS 03/08/23: No change since IE. Pt with score of 33/80 STG Duration 03/06/23 Entry Level Marketing Representative Goal (LTG) Pt with score of 55/80 on LEFS LTG Duration 03/27/23 Three Impairment Balance impairment Impairment Pt able to tandem stance for 15 seconds. Short Term Goal (STG) Pt able to tandem stance for 30 seconds. 03/08/23-GOAL MET, Pt able to hold for 30+ seconds bilaterally. STG Duration 03/06/23 Half-Way Goal (LTG) Pt able to tandem stance for 45 seconds. LTG Duration 03/27/23 Two Impairment Fatigue Impairment Pt with reported fatigue and decrease endurance, particularly at the end of the day. Entry Level Marketing Representative Goal (LTG) Pt to report 50% improvement in endurance/energy levels in the afternoon/evening. LTG Duration 03/27/23 Assessment Summary Assessment Pt tolerated PRE well today with rest breaks. Pt able to SLS for >20 sec on R and 10 sec on L today. Pt demonstrates continued reported fatigue on L LE with exercises. Pt would benefit from continued PT to progress strength and mobility to improve tolerance to functional activities. Physical Therapy Plan Frequency and Duration Frequency of Treatment 2x/Week Duration of treatment (weeks) 6 Plan of Care Start Date 02/13/23 Plan of Care End Date 03/27/23 Therapeutic Interventions Therapeutic Interventions Balance Training,Coordination Training,Gait Training,Home Exercise Program,Joint Mobilizations,Manual Therapy, Neuromuscular Re-education, Patient/Caregiver Education, Self-Care/Home Management,Soft Tissue Mobilization, Therapeutic Activities, Therapeutic Exercises Modalities Cold Pack/Ice Massage,Hot Packs Next Visit Focus/Plan Next Note Type Treatment Note Next Visit Plan Try a 6MWT next session, Progress functional strength and higher level dynamic gait/ balance activities.
--- NOTE | 2023-03-25 11:33 | PT.OTN ---
Current Diagnoses Other chronic pain (03/25/23) Pain in right hip (03/25/23) Pain in left hip (03/25/23) Pain in left leg (03/25/23) Other abnormalities of gait and mobility (03/25/23) History of falling (03/25/23) Physical Therapy Treatment Note PT-OP-A Visit Information Start: 02/12/23 17:12 Freq: Status: Active Protocol: Document 03/25/23 11:33 AM (Rec: 03/25/23 13:30 AM [id number]) Out-Patient Physical Therapy Visit Information Visit Information Visit Type Treatment Note Visit Start Time 11:33 Visit Stop Time 12:15 Total Visit Minutes 42 Visit Number 7 PT-OP-B Current Condition Start: 02/12/23 17:12 Freq: Status: Active Protocol: Document 02/26/23 10:35 AM (Rec: 02/26/23 11:27 AM [id number]) Current Condition History of Current Condition Onset Date Chronic History of Current Condition Pt reports that her hip pain has improved since she has been taking tylenol. Pt reports numbness at L foot following TIA. Pt reports that she has muscle fatigue by the evening. Pt reports that she has a general fatigue at at [place] in the evening. Pt reports that she rides her recumbent bike 15 min daily. Pt reports that she walks with a walking stick with her daily 1/2 mile walks. Pt had a recent fall in December. She fell off of last 2 steps on to concrete. She broke her L pinky and R middle toe. Pt had TIA on October 2022. PT-OP-C Subjective Start: 02/12/23 17:12 Freq: Status: Active Protocol: Document 03/25/23 11:33 AM (Rec: 03/25/23 13:30 AM [id number]) OP-PT Subjective Patient Comments Patient Comments Pt reports that she feels that she is not moving as well today, though unsure why. PT-OP-D Balance Start: 02/12/23 17:12 Freq: Status: Active Protocol: Document 03/08/23 16:06 AM (Rec: 03/08/23 16:33 AM [id number]) Rondon Balance Assessment Evaluation Sitting to Standing Ability Independent w/out Hands Unsupported Stance Safely- 2 minutes Sitting Unsupported, Feet on Floor Safely- 2 minutes Standing to Sitting Ability Safely, Minimal Hand Use Transfer Ability Safely, Minimal Hand Use Unsupported Stance- Eyes Closed Safely, 10 seconds Unsupported Stance- Eyes Open Independent, 1 minute Reaching Forward Standing Confidently, 10 inches Pick- Up Object From Floor Independent/Safe Look Behind Shoulder - Standing Shifts Weight Well Turning 360 Degrees Turns Bilateral, < 4 secs Unsupported Stance, Alternating Feet on (I)- 8 Steps in 20 secs Stair Unsupported Tandem Stance Holds Tandem- 30 seconds Unilateral Leg Stance Lifts Leg/Holds 5-10 secs Total Score Rondon Total Score (out of 56 points) 54 PT-OP-E Functional Tests Start: 02/12/23 17:12 Freq: Status: Active Protocol: Document 02/13/23 09:53 AM (Rec: 02/13/23 11:34 AM [id number]) Functional Tests 30 Second Sit to Stand Test Score 16 Four Step Square Test Score 12 sec PT-OP-G Mobility & Gait Start: 02/12/23 17:12 Freq: Status: Active Protocol: Document 02/13/23 09:53 AM (Rec: 02/13/23 11:34 AM [id number]) OP Gait Assessment Gait Gait Assistance Required: Independent Assistive Devices Assistive Device None Gait Deviations General Gait Pattern Decreased Stride Length,Wide Based Gait PT-OP-M Strength Start: 02/12/23 17:12 Freq: Status: Active Protocol: Document 02/13/23 09:53 AM (Rec: 02/13/23 11:34 AM [id number]) Hip Strength Hip Manual Muscle Testing Left Flexion (L2) 3+ Fair+ Abduction 3+ Fair+ Adduction 4+ Good+ External Rotation 4- Good- Internal Rotation 4- Good- Right Flexion (L2) 3+ Fair+ Abduction 4 Good Adduction 4+ Good+ External Rotation 4- Good- Internal Rotation 4- Good- Knee Strength Knee Manual Muscle Testing Left Flexion (S2) 4 Good Extension (L3) 4 Good Right Flexion (S2) 4+ Good+ Extension (L3) 4+ Good+ Ankle/Foot Strength Ankle and Foot Manual Muscle Testing Left Dorsiflexion (L4) 4 Good Plantarflexion (S1) 4 Good Right Dorsiflexion (L4) 5 Normal Plantarflexion (S1) 4+ Good+ PT-OP-Q Treatments Start: 02/12/23 17:12 Freq: Status: Active Protocol: Document 03/25/23 11:33 AM (Rec: 03/25/23 13:30 AM [id number]) Cardio Equipment Recumbent Stepper (Sci-Fit) Duration (Minutes) 5 Resistance 3 Seat Position 9 Other Cardio Equipment Other Cardio Equipment Cardio-ambulation 6MWT Gym Equipment Shuttle Recovery unilateral squat Details unilateral Resistance 37# (1 teal) Shuttle Recovery Platform Stable Reps/Time 2x30 sec Bilateral Squats Details Bilateral squat Resistance 75#, (2 navy) Shuttle Recovery Platform Stable Reps/Time 2x1 min Therapeutic Exercises Other Exercises Hip flexor stretch Other Exercise Name off edge of table with assist from PT. Reps/Minutes 2x30 sec Comments L stiffer than R PT-OP-T Assessment and Plan Start: 02/12/23 17:12 Freq: Status: Active Protocol: Document 03/25/23 11:33 AM (Rec: 03/25/23 13:30 AM [id number]) Physical Therapy Assessment Impairments Impairments Balance,Coordination, Functional Activities, Functional Mobility,Gait,Pain, Posture,ROM,Sensation,Soft Tissue Mobility,Strength Goals Hip strength Impairment Hip strength impairment Impairment Pt with 3+to 4-/5 strength grossly at B hips. Short Term Goal (STG) Pt to demonstrate grossly 4/5 B hip strength. 03/08/23: Goal met with 4/5 B hip strength STG Duration 03/06/23 Intermediate Goal (LTG) Pt to demonstrate grossly 4+ to 5/5 B hip strength. LTG Duration 04/17/23 Rondon Impairment Rondon Balance score Impairment Pt with mild fall risk per Rondon balance score of 44/56. Short Term Goal (STG) Pt with Rondon balance score of 50/56 03/08/23-GOAL MET with Rondon score of 54/56 STG Duration 03/06/23 Intermediate Goal (LTG) Pt with Rondon balance score of 56/56 LTG Duration 04/17/23 LEFS Impairment Pt with score of 33/80 on LEFS Short Term Goal (STG) Pt with score of 45/80 on LEFS 03/08/23: No change since IE. Pt with score of 33/80 STG Duration 03/06/23 Human Resources Vice President Goal (LTG) Pt with score of 55/80 on LEFS LTG Duration 04/17/23 Three Impairment Balance impairment Impairment Pt able to tandem stance for 15 seconds. Short Term Goal (STG) Pt able to tandem stance for 30 seconds. 03/08/23-GOAL MET, Pt able to hold for 30+ seconds bilaterally. STG Duration 03/06/23 Intermediate Goal (LTG) Pt able to tandem stance for 45 seconds. LTG Duration 04/17/23 Two Impairment Fatigue Impairment Pt with reported fatigue and decrease endurance, particularly at the end of the day. Human Resources Vice President Goal (LTG) Pt to report 50% improvement in endurance/energy levels in the afternoon/evening. LTG Duration 04/17/23 Assessment Summary Assessment Pt required more rest breaks today due to fatigue levels. Pt with L quad/hip flexor stiffness compared to R with manual stretching. Pt demonstrates decreased L heel strike and increased knee flexion with gait when fatigued. Pt challenged with maintaining TKE with SLR on L. Pt would benefit from continued PT to progress strength, balance and endurance to improve tolerance to functional tasks. Pt's POC dates extended secondary to missed visits due to travel. Physical Therapy Plan Frequency and Duration Frequency of Treatment 2x/Week Duration of treatment (weeks) 9 Plan of Care Start Date 02/13/23 Plan of Care End Date 04/17/23 Therapeutic Interventions Therapeutic Interventions Balance Training,Coordination Training,Gait Training,Home Exercise Program,Joint Mobilizations,Manual Therapy, Neuromuscular Re-education, Patient/Caregiver Education, Self-Care/Home Management,Soft Tissue Mobilization, Therapeutic Activities, Therapeutic Exercises Modalities Cold Pack/Ice Massage,Hot Packs Next Visit Focus/Plan Next Note Type Treatment Note Next Visit Plan Progress functional strength and higher level dynamic gait/ balance activities.
--- NOTE | 2023-03-25 11:33 | PT.OPPOC ---
Physical, Occupational & Speech Therapy At [facility] Current Diagnoses Other chronic pain (03/25/23) Pain in right hip (03/25/23) Pain in left hip (03/25/23) Pain in left leg (03/25/23) Other abnormalities of gait and mobility (03/25/23) History of falling (03/25/23) Visit Care Team Role Provider Type Brice Giron DO Attending Provider Physician Family Provider Primary Care Provider Referring Provider Specialty: Family Practice Address: [address] [place] [address], [facility] Email: [email or web address] Plan Of Care PT-OP-T Assessment and Plan Start: 02/12/23 17:12 Freq: Status: Active Protocol: Document 03/25/23 11:33 AM (Rec: 03/25/23 13:30 AM [id number]) Physical Therapy Assessment Impairments Impairments Balance,Coordination, Functional Activities, Functional Mobility,Gait,Pain, Posture,ROM,Sensation,Soft Tissue Mobility,Strength Goals Hip strength Impairment Hip strength impairment Impairment Pt with 3+to 4-/5 strength grossly at B hips. Short Term Goal (STG) Pt to demonstrate grossly 4/5 B hip strength. 03/08/23: Goal met with 4/5 B hip strength STG Duration 03/06/23 Computer Analyst Goal (LTG) Pt to demonstrate grossly 4+ to 5/5 B hip strength. LTG Duration 04/17/23 Rondon Impairment Rondon Balance score Impairment Pt with mild fall risk per Rondon balance score of 44/56. Short Term Goal (STG) Pt with Rondon balance score of 50/56 03/08/23-GOAL MET with Rondon score of 54/56 STG Duration 03/06/23 Computer Analyst Goal (LTG) Pt with Rondon balance score of 56/56 LTG Duration 04/17/23 LEFS Impairment Pt with score of 33/80 on LEFS Short Term Goal (STG) Pt with score of 45/80 on LEFS 03/08/23: No change since IE. Pt with score of 33/80 STG Duration 03/06/23 Penitentiary Goal (LTG) Pt with score of 55/80 on LEFS LTG Duration 04/17/23 Three Impairment Balance impairment Impairment Pt able to tandem stance for 15 seconds. Short Term Goal (STG) Pt able to tandem stance for 30 seconds. 03/08/23-GOAL MET, Pt able to hold for 30+ seconds bilaterally. STG Duration 03/06/23 Computer Analyst Goal (LTG) Pt able to tandem stance for 45 seconds. LTG Duration 04/17/23 Two Impairment Fatigue Impairment Pt with reported fatigue and decrease endurance, particularly at the end of the day. Computer Analyst Goal (LTG) Pt to report 50% improvement in endurance/energy levels in the afternoon/evening. LTG Duration 04/17/23 Assessment Summary Assessment Pt required more rest breaks today due to fatigue levels. Pt with L quad/hip flexor stiffness compared to R with manual stretching. Pt demonstrates decreased L heel strike and increased knee flexion with gait when fatigued. Pt challenged with maintaining TKE with SLR on L. Pt would benefit from continued PT to progress strength, balance and endurance to improve tolerance to functional tasks. Pt's POC dates extended secondary to missed visits due to travel. Physical Therapy Plan Frequency and Duration Frequency of Treatment 2x/Week Duration of treatment (weeks) 9 Plan of Care Start Date 02/13/23 Plan of Care End Date 04/17/23 Therapeutic Interventions Therapeutic Interventions Balance Training,Coordination Training,Gait Training,Home Exercise Program,Joint Mobilizations,Manual Therapy, Neuromuscular Re-education, Patient/Caregiver Education, Self-Care/Home Management,Soft Tissue Mobilization, Therapeutic Activities, Therapeutic Exercises Modalities Cold Pack/Ice Massage,Hot Packs Next Visit Focus/Plan Next Note Type Treatment Note Next Visit Plan Progress functional strength and higher level dynamic gait/ balance activities. Plan of Care Dates Plan of Care Start Date 02/13/23 Plan of Care End Date 04/17/23 Electronically Signed by: Gladys Shepard, PT 03/25/23 [id number] If you are in agreement with this Plan of Care, please return a signed and dated copy. I have reviewed this Plan of Care and certify that the skilled therapy services above are required to meet the patient?s needs. Physician Signature Date Printed Name and Credentials Clinical Instructor Signature Printed Name and Credentials
--- NOTE | 2023-03-29 11:31 | PT.OTN ---
Current Diagnoses Other chronic pain (03/29/23) Pain in right hip (03/29/23) Pain in left hip (03/29/23) Pain in left leg (03/29/23) Other abnormalities of gait and mobility (03/29/23) History of falling (03/29/23) Physical Therapy Treatment Note PT-OP-A Visit Information Start: 02/12/23 17:12 Freq: Status: Active Protocol: Document 03/29/23 11:31 AM (Rec: 03/29/23 12:36 AM [id number]) Out-Patient Physical Therapy Visit Information Visit Information Visit Type Treatment Note Visit Start Time 11:31 Visit Stop Time 12:20 Total Visit Minutes 49 Visit Number 8 PT-OP-B Current Condition Start: 02/12/23 17:12 Freq: Status: Active Protocol: Document 02/26/23 10:35 AM (Rec: 02/26/23 11:27 AM [id number]) Current Condition History of Current Condition Onset Date Chronic History of Current Condition Pt reports that her hip pain has improved since she has been taking tylenol. Pt reports numbness at L foot following TIA. Pt reports that she has muscle fatigue by the evening. Pt reports that she has a general fatigue at at [place] in the evening. Pt reports that she rides her recumbent bike 15 min daily. Pt reports that she walks with a walking stick with her daily 1/2 mile walks. Pt had a recent fall in December. She fell off of last 2 steps on to concrete. She broke her L pinky and R middle toe. Pt had TIA on October 2022. PT-OP-C Subjective Start: 02/12/23 17:12 Freq: Status: Active Protocol: Document 03/29/23 11:31 AM (Rec: 03/29/23 12:36 AM [id number]) OP-PT Subjective Patient Comments Patient Comments Pt reports that she had an emotional visit with PCP today . She reports that she continues to have a lot of fatigue and is frustrated by that. She reports that she will be getting an EKG and they are going to adjust her meds. She will also start a diuretic for LE edema. PT-OP-D Balance Start: 02/12/23 17:12 Freq: Status: Active Protocol: Document 03/08/23 16:06 AM (Rec: 03/08/23 16:33 AM [id number]) Rondon Balance Assessment Evaluation Sitting to Standing Ability Independent w/out Hands Unsupported Stance Safely- 2 minutes Sitting Unsupported, Feet on Floor Safely- 2 minutes Standing to Sitting Ability Safely, Minimal Hand Use Transfer Ability Safely, Minimal Hand Use Unsupported Stance- Eyes Closed Safely, 10 seconds Unsupported Stance- Eyes Open Independent, 1 minute Reaching Forward Standing Confidently, 10 inches Pick- Up Object From Floor Independent/Safe Look Behind Shoulder - Standing Shifts Weight Well Turning 360 Degrees Turns Bilateral, < 4 secs Unsupported Stance, Alternating Feet on (I)- 8 Steps in 20 secs Stair Unsupported Tandem Stance Holds Tandem- 30 seconds Unilateral Leg Stance Lifts Leg/Holds 5-10 secs Total Score Rondon Total Score (out of 56 points) 54 PT-OP-E Functional Tests Start: 02/12/23 17:12 Freq: Status: Active Protocol: Document 02/13/23 09:53 AM (Rec: 02/13/23 11:34 AM [id number]) Functional Tests 30 Second Sit to Stand Test Score 16 Four Step Square Test Score 12 sec PT-OP-G Mobility & Gait Start: 02/12/23 17:12 Freq: Status: Active Protocol: Document 02/13/23 09:53 AM (Rec: 02/13/23 11:34 AM [id number]) OP Gait Assessment Gait Gait Assistance Required: Independent Assistive Devices Assistive Device None Gait Deviations General Gait Pattern Decreased Stride Length,Wide Based Gait PT-OP-M Strength Start: 02/12/23 17:12 Freq: Status: Active Protocol: Document 02/13/23 09:53 AM (Rec: 02/13/23 11:34 AM [id number]) Hip Strength Hip Manual Muscle Testing Left Flexion (L2) 3+ Fair+ Abduction 3+ Fair+ Adduction 4+ Good+ External Rotation 4- Good- Internal Rotation 4- Good- Right Flexion (L2) 3+ Fair+ Abduction 4 Good Adduction 4+ Good+ External Rotation 4- Good- Internal Rotation 4- Good- Knee Strength Knee Manual Muscle Testing Left Flexion (S2) 4 Good Extension (L3) 4 Good Right Flexion (S2) 4+ Good+ Extension (L3) 4+ Good+ Ankle/Foot Strength Ankle and Foot Manual Muscle Testing Left Dorsiflexion (L4) 4 Good Plantarflexion (S1) 4 Good Right Dorsiflexion (L4) 5 Normal Plantarflexion (S1) 4+ Good+ PT-OP-Q Treatments Start: 02/12/23 17:12 Freq: Status: Active Protocol: Document 03/29/23 11:31 AM (Rec: 03/29/23 12:36 AM [id number]) Cardio Equipment Recumbent Stepper (Sci-Fit) Duration (Minutes) 6 Resistance 3 Seat Position 9 Gym Equipment Shuttle Recovery unilateral squat Details unilateral Resistance 37# (1 teal) Shuttle Recovery Platform Stable Reps/Time 2x30 sec Bilateral Squats Details Bilateral squat Resistance 75#, (2 navy) Shuttle Recovery Platform Stable Reps/Time 2x1 min Therapeutic Exercises Supine Exercises Diaphragmatic breathing Supine Exercise Name Hooklying Other Exercises Hip flexor stretch Other Exercise Name off edge of table with assist from PT. Reps/Minutes 2x30 sec Comments L stiffer than R Manual Therapy Treatment Soft Tissue Mobilization [place] quads/ITB Body Location Bilateral quads Mobilization Type Rolling Intensity/Depth Moderate Body Position Hooklying Comments Larger round bolster under knees PT-OP-T Assessment and Plan Start: 02/12/23 17:12 Freq: Status: Active Protocol: Document 03/29/23 11:31 AM (Rec: 03/29/23 12:36 AM [id number]) Physical Therapy Assessment Goals Hip strength Impairment Hip strength impairment Impairment Pt with 3+to 4-/5 strength grossly at B hips. Short Term Goal (STG) Pt to demonstrate grossly 4/5 B hip strength. 03/08/23: Goal met with 4/5 B hip strength STG Duration 03/06/23 Assisted Goal (LTG) Pt to demonstrate grossly 4+ to 5/5 B hip strength. LTG Duration 04/17/23 Rondon Impairment Rondon Balance score Impairment Pt with mild fall risk per Rondon balance score of 44/56. Short Term Goal (STG) Pt with Rondon balance score of 50/56 03/08/23-GOAL MET with Rondon score of 54/56 STG Duration 03/06/23 Assisted Goal (LTG) Pt with Rondon balance score of 56/56 LTG Duration 04/17/23 LEFS Impairment Pt with score of 33/80 on LEFS Short Term Goal (STG) Pt with score of 45/80 on LEFS 03/08/23: No change since IE. Pt with score of 33/80 STG Duration 03/06/23 Assembly Riveter Goal (LTG) Pt with score of 55/80 on LEFS LTG Duration 04/17/23 Three Impairment Balance impairment Impairment Pt able to tandem stance for 15 seconds. Short Term Goal (STG) Pt able to tandem stance for 30 seconds. 03/08/23-GOAL MET, Pt able to hold for 30+ seconds bilaterally. STG Duration 03/06/23 Assembly Riveter Goal (LTG) Pt able to tandem stance for 45 seconds. LTG Duration 04/17/23 Two Impairment Fatigue Impairment Pt with reported fatigue and decrease endurance, particularly at the end of the day. Assisted Goal (LTG) Pt to report 50% improvement in endurance/energy levels in the afternoon/evening. LTG Duration 04/17/23 Assessment Summary Assessment Pt guided through diaphragmatic breathing to decrease tension and during periods of rest for energy conservation. Pt demonstrates improving hip flexor length bilaterally. Pt with tenderness along bilateral quads following shuttle recovery exercises. Pt would benefit from continued PT to progress strength, endurance and balance. Physical Therapy Plan Frequency and Duration Frequency of Treatment 2x/Week Duration of treatment (weeks) 9 Plan of Care Start Date 02/13/23 Plan of Care End Date 04/17/23 Therapeutic Interventions Therapeutic Interventions Balance Training,Coordination Training,Gait Training,Home Exercise Program,Joint Mobilizations,Manual Therapy, Neuromuscular Re-education, Patient/Caregiver Education, Self-Care/Home Management,Soft Tissue Mobilization, Therapeutic Activities, Therapeutic Exercises Modalities Cold Pack/Ice Massage,Hot Packs Next Visit Focus/Plan Next Note Type Treatment Note Next Visit Plan Progress functional strength and higher level dynamic gait/ balance activities.
--- NOTE | 2023-04-01 14:19 | PT.OTN ---
Current Diagnoses Other chronic pain (04/01/23) Pain in right hip (04/01/23) Pain in left hip (04/01/23) Pain in left leg (04/01/23) Other abnormalities of gait and mobility (04/01/23) History of falling (04/01/23) Physical Therapy Treatment Note PT-OP-A Visit Information Start: 02/12/23 17:12 Freq: Status: Active Protocol: Document 04/01/23 14:19 AM (Rec: 04/01/23 15:09 AM [id number]) Out-Patient Physical Therapy Visit Information Visit Information Visit Type Treatment Note Visit Start Time 14:19 Visit Stop Time 13:01 Total Visit Minutes 42 Visit Number 9 PT-OP-B Current Condition Start: 02/12/23 17:12 Freq: Status: Active Protocol: Document 02/26/23 10:35 AM (Rec: 02/26/23 11:27 AM [id number]) Current Condition History of Current Condition Onset Date Chronic History of Current Condition Pt reports that her hip pain has improved since she has been taking tylenol. Pt reports numbness at L foot following TIA. Pt reports that she has muscle fatigue by the evening. Pt reports that she has a general fatigue at at [facility] in the evening. Pt reports that she rides her recumbent bike 15 min daily. Pt reports that she walks with a walking stick with her daily 1/2 mile walks. Pt had a recent fall in December. She fell off of last 2 steps on to concrete. She broke her L pinky and R middle toe. Pt had TIA on October 2022. PT-OP-C Subjective Start: 02/12/23 17:12 Freq: Status: Active Protocol: Document 04/01/23 14:19 AM (Rec: 04/01/23 15:09 AM [id number]) OP-PT Subjective Patient Comments Patient Comments Pt reports that she has not yet been scheduled for her EKG . Pt reports that she feels that her legs are feeling better today, though not sure if it is from medication change. Pt reports that she was very tired through the weekend. PT-OP-D Balance Start: 02/12/23 17:12 Freq: Status: Active Protocol: Document 03/08/23 16:06 AM (Rec: 03/08/23 16:33 AM [id number]) Rondon Balance Assessment Evaluation Sitting to Standing Ability Independent w/out Hands Unsupported Stance Safely- 2 minutes Sitting Unsupported, Feet on Floor Safely- 2 minutes Standing to Sitting Ability Safely, Minimal Hand Use Transfer Ability Safely, Minimal Hand Use Unsupported Stance- Eyes Closed Safely, 10 seconds Unsupported Stance- Eyes Open Independent, 1 minute Reaching Forward Standing Confidently, 10 inches Pick- Up Object From Floor Independent/Safe Look Behind Shoulder - Standing Shifts Weight Well Turning 360 Degrees Turns Bilateral, < 4 secs Unsupported Stance, Alternating Feet on (I)- 8 Steps in 20 secs Stair Unsupported Tandem Stance Holds Tandem- 30 seconds Unilateral Leg Stance Lifts Leg/Holds 5-10 secs Total Score Rondon Total Score (out of 56 points) 54 PT-OP-E Functional Tests Start: 02/12/23 17:12 Freq: Status: Active Protocol: Document 02/13/23 09:53 AM (Rec: 02/13/23 11:34 AM [id number]) Functional Tests 30 Second Sit to Stand Test Score 16 Four Step Square Test Score 12 sec PT-OP-G Mobility & Gait Start: 02/12/23 17:12 Freq: Status: Active Protocol: Document 02/13/23 09:53 AM (Rec: 02/13/23 11:34 AM [id number]) OP Gait Assessment Gait Gait Assistance Required: Independent Assistive Devices Assistive Device None Gait Deviations General Gait Pattern Decreased Stride Length,Wide Based Gait PT-OP-M Strength Start: 02/12/23 17:12 Freq: Status: Active Protocol: Document 02/13/23 09:53 AM (Rec: 02/13/23 11:34 AM [id number]) Hip Strength Hip Manual Muscle Testing Left Flexion (L2) 3+ Fair+ Abduction 3+ Fair+ Adduction 4+ Good+ External Rotation 4- Good- Internal Rotation 4- Good- Right Flexion (L2) 3+ Fair+ Abduction 4 Good Adduction 4+ Good+ External Rotation 4- Good- Internal Rotation 4- Good- Knee Strength Knee Manual Muscle Testing Left Flexion (S2) 4 Good Extension (L3) 4 Good Right Flexion (S2) 4+ Good+ Extension (L3) 4+ Good+ Ankle/Foot Strength Ankle and Foot Manual Muscle Testing Left Dorsiflexion (L4) 4 Good Plantarflexion (S1) 4 Good Right Dorsiflexion (L4) 5 Normal Plantarflexion (S1) 4+ Good+ PT-OP-Q Treatments Start: 02/12/23 17:12 Freq: Status: Active Protocol: Document 04/01/23 14:19 AM (Rec: 04/01/23 15:09 AM [id number]) Cardio Equipment Recumbent Stepper (Sci-Fit) Duration (Minutes) 6 Resistance 3 Seat Position 9 Gym Equipment Shuttle Recovery Bilateral Squats Details Bilateral squat Resistance 75#, (2 navy) Shuttle Recovery Platform Stable Reps/Time 2x1 min Neuro Re-Education Treatment Balance Activities Clock Equipment clock yourself Comments 40 SPM for numbers and 30 SPM for months Dynamic gait activities Details head turns up/down, side to side, high knees, tandem walking. PT-OP-T Assessment and Plan Start: 02/12/23 17:12 Freq: Status: Active Protocol: Document 04/01/23 14:19 AM (Rec: 04/01/23 15:09 AM [id number]) Physical Therapy Assessment Goals Hip strength Impairment Hip strength impairment Impairment Pt with 3+to 4-/5 strength grossly at B hips. Short Term Goal (STG) Pt to demonstrate grossly 4/5 B hip strength. 03/08/23: Goal met with 4/5 B hip strength STG Duration 03/06/23 Net Sql Developer Goal (LTG) Pt to demonstrate grossly 4+ to 5/5 B hip strength. LTG Duration 04/17/23 Rondon Impairment Rondon Balance score Impairment Pt with mild fall risk per Rondon balance score of 44/56. Short Term Goal (STG) Pt with Rondon balance score of 50/56 03/08/23-GOAL MET with Rondon score of 54/56 STG Duration 03/06/23 Net Sql Developer Goal (LTG) Pt with Rondon balance score of 56/56 LTG Duration 04/17/23 LEFS Impairment Pt with score of 33/80 on LEFS Short Term Goal (STG) Pt with score of 45/80 on LEFS 03/08/23: No change since IE. Pt with score of 33/80 STG Duration 03/06/23 Net Sql Developer Goal (LTG) Pt with score of 55/80 on LEFS LTG Duration 04/17/23 Three Impairment Balance impairment Impairment Pt able to tandem stance for 15 seconds. Short Term Goal (STG) Pt able to tandem stance for 30 seconds. 03/08/23-GOAL MET, Pt able to hold for 30+ seconds bilaterally. STG Duration 03/06/23 [facility] Goal (LTG) Pt able to tandem stance for 45 seconds. LTG Duration 04/17/23 Two Impairment Fatigue Impairment Pt with reported fatigue and decrease endurance, particularly at the end of the day. [facility] Goal (LTG) Pt to report 50% improvement in endurance/energy levels in the afternoon/evening. LTG Duration 04/17/23 Assessment Summary Assessment Pt continues to require cueing for breathwork throughout exercises. Pt demonstrated path deviations with side to side head turns during gait. Pt challenged with coordination with high knees , though improved with repetition. Pt challenged with coordination of L LE with clock activity compared to R. Pt would benefit from continued PT to progress balance and strength as tolerated. Physical Therapy Plan Frequency and Duration Frequency of Treatment 2x/Week Duration of treatment (weeks) 9 Plan of Care Start Date 02/13/23 Plan of Care End Date 04/17/23 Therapeutic Interventions Therapeutic Interventions Balance Training,Coordination Training,Gait Training,Home Exercise Program,Joint Mobilizations,Manual Therapy, Neuromuscular Re-education, Patient/Caregiver Education, Self-Care/Home Management,Soft Tissue Mobilization, Therapeutic Activities, Therapeutic Exercises Modalities Cold Pack/Ice Massage,Hot Packs Next Visit Focus/Plan Next Note Type Treatment Note Next Visit Plan Progress functional strength and higher level dynamic gait/ balance activities.
--- NOTE | 2023-04-04 13:34 | PT.OTN ---
Current Diagnoses Other chronic pain (04/04/23) Pain in right hip (04/04/23) Pain in left hip (04/04/23) Pain in left leg (04/04/23) Other abnormalities of gait and mobility (04/04/23) History of falling (04/04/23) Physical Therapy Treatment Note PT-OP-A Visit Information Start: 02/12/23 17:12 Freq: Status: Active Protocol: Document 04/04/23 13:34 AM (Rec: 04/04/23 14:19 AM [id number]) Out-Patient Physical Therapy Visit Information Visit Information Visit Type Treatment Note Visit Start Time 13:34 Visit Stop Time 14:16 Total Visit Minutes 42 Visit Number 10 PT-OP-B Current Condition Start: 02/12/23 17:12 Freq: Status: Active Protocol: Document 02/26/23 10:35 AM (Rec: 02/26/23 11:27 AM [id number]) Current Condition History of Current Condition Onset Date Chronic History of Current Condition Pt reports that her hip pain has improved since she has been taking tylenol. Pt reports numbness at L foot following TIA. Pt reports that she has muscle fatigue by the evening. Pt reports that she has a general fatigue at at [facility] in the evening. Pt reports that she rides her recumbent bike 15 min daily. Pt reports that she walks with a walking stick with her daily 1/2 mile walks. Pt had a recent fall in December. She fell off of last 2 steps on to concrete. She broke her L pinky and R middle toe. Pt had TIA on October 2022. PT-OP-C Subjective Start: 02/12/23 17:12 Freq: Status: Active Protocol: Document 04/04/23 13:34 AM (Rec: 04/04/23 14:19 AM [id number]) OP-PT Subjective Patient Comments Patient Comments Pt reports that she had some stomach issues earlier this week. Pt reports that she stopped taking the diuretic. PT-OP-D Balance Start: 02/12/23 17:12 Freq: Status: Active Protocol: Document 03/08/23 16:06 AM (Rec: 03/08/23 16:33 AM [id number]) Rondon Balance Assessment Evaluation Sitting to Standing Ability Independent w/out Hands Unsupported Stance Safely- 2 minutes Sitting Unsupported, Feet on Floor Safely- 2 minutes Standing to Sitting Ability Safely, Minimal Hand Use Transfer Ability Safely, Minimal Hand Use Unsupported Stance- Eyes Closed Safely, 10 seconds Unsupported Stance- Eyes Open Independent, 1 minute Reaching Forward Standing Confidently, 10 inches Pick- Up Object From Floor Independent/Safe Look Behind Shoulder - Standing Shifts Weight Well Turning 360 Degrees Turns Bilateral, < 4 secs Unsupported Stance, Alternating Feet on (I)- 8 Steps in 20 secs Stair Unsupported Tandem Stance Holds Tandem- 30 seconds Unilateral Leg Stance Lifts Leg/Holds 5-10 secs Total Score Rondon Total Score (out of 56 points) 54 PT-OP-E Functional Tests Start: 02/12/23 17:12 Freq: Status: Active Protocol: Document 02/13/23 09:53 AM (Rec: 02/13/23 11:34 AM [id number]) Functional Tests 30 Second Sit to Stand Test Score 16 Four Step Square Test Score 12 sec PT-OP-G Mobility & Gait Start: 02/12/23 17:12 Freq: Status: Active Protocol: Document 02/13/23 09:53 AM (Rec: 02/13/23 11:34 AM [id number]) OP Gait Assessment Gait Gait Assistance Required: Independent Assistive Devices Assistive Device None Gait Deviations General Gait Pattern Decreased Stride Length,Wide Based Gait PT-OP-M Strength Start: 02/12/23 17:12 Freq: Status: Active Protocol: Document 02/13/23 09:53 AM (Rec: 02/13/23 11:34 AM [id number]) Hip Strength Hip Manual Muscle Testing Left Flexion (L2) 3+ Fair+ Abduction 3+ Fair+ Adduction 4+ Good+ External Rotation 4- Good- Internal Rotation 4- Good- Right Flexion (L2) 3+ Fair+ Abduction 4 Good Adduction 4+ Good+ External Rotation 4- Good- Internal Rotation 4- Good- Knee Strength Knee Manual Muscle Testing Left Flexion (S2) 4 Good Extension (L3) 4 Good Right Flexion (S2) 4+ Good+ Extension (L3) 4+ Good+ Ankle/Foot Strength Ankle and Foot Manual Muscle Testing Left Dorsiflexion (L4) 4 Good Plantarflexion (S1) 4 Good Right Dorsiflexion (L4) 5 Normal Plantarflexion (S1) 4+ Good+ PT-OP-Q Treatments Start: 02/12/23 17:12 Freq: Status: Active Protocol: Document 04/04/23 13:34 AM (Rec: 04/04/23 14:19 AM [id number]) Cardio Equipment Recumbent Stepper (Sci-Fit) Duration (Minutes) 6 Resistance 3 Seat Position 9 Gym Equipment Shuttle Recovery unilateral squat Details unilateral Resistance 37# (1 navy) Shuttle Recovery Platform Stable Reps/Time 2x30 sec Bilateral Squats Details Bilateral squat Resistance 75#, (3 navy) Shuttle Recovery Platform Stable Reps/Time 2x1 min Therapeutic Exercises Standing Exercises Standing calf stretch Side bilateral Reps/Minutes 2x30 sec ea Step-up Standing Exercise Name Step up at 6'' step Reps/Minutes 2x10 Neuro Re-Education Treatment Balance Activities Dynamic gait activities Details head turns up/down, side to side, high knees, tandem walking. Comments marching, butt kickers, walking on heels PT-OP-T Assessment and Plan Start: 02/12/23 17:12 Freq: Status: Active Protocol: Document 04/04/23 13:34 AM (Rec: 04/04/23 14:19 AM [id number]) Physical Therapy Assessment Goals Hip strength Impairment Hip strength impairment Impairment Pt with 3+to 4-/5 strength grossly at B hips. Short Term Goal (STG) Pt to demonstrate grossly 4/5 B hip strength. 03/08/23: Goal met with 4/5 B hip strength STG Duration 03/06/23 Secondary School Registrar Goal (LTG) Pt to demonstrate grossly 4+ to 5/5 B hip strength. LTG Duration 04/17/23 Rondon Impairment Rondon Balance score Impairment Pt with mild fall risk per Rondon balance score of 44/56. Short Term Goal (STG) Pt with Rondon balance score of 50/56 03/08/23-GOAL MET with Rondon score of 54/56 STG Duration 03/06/23 Intermediate Goal (LTG) Pt with Rondon balance score of 56/56 LTG Duration 04/17/23 LEFS Impairment Pt with score of 33/80 on LEFS Short Term Goal (STG) Pt with score of 45/80 on LEFS 03/08/23: No change since IE. Pt with score of 33/80 STG Duration 03/06/23 Intermediate Goal (LTG) Pt with score of 55/80 on LEFS LTG Duration 04/17/23 Three Impairment Balance impairment Impairment Pt able to tandem stance for 15 seconds. Short Term Goal (STG) Pt able to tandem stance for 30 seconds. 03/08/23-GOAL MET, Pt able to hold for 30+ seconds bilaterally. STG Duration 03/06/23 Secondary School Registrar Goal (LTG) Pt able to tandem stance for 45 seconds. LTG Duration 04/17/23 Two Impairment Fatigue Impairment Pt with reported fatigue and decrease endurance, particularly at the end of the day. Secondary School Registrar Goal (LTG) Pt to report 50% improvement in endurance/energy levels in the afternoon/evening. LTG Duration 04/17/23 Assessment Summary Assessment Pt tolerated PRE well today with reported fatigue. Pt continues to be challenged with balance challenges with gait when vision is altered, though improved compared to previous session. Pt tolerated increased resistance with shuttle recovery today using heavier bands. Pt reported calf stiffness following dynamic gait activities, with reported benefit from calf stretch. Pt would benefit from continued PT to progress strength and balance to improve tolerance to functional tasks. Physical Therapy Plan Frequency and Duration Frequency of Treatment 2x/Week Duration of treatment (weeks) 9 Plan of Care Start Date 02/13/23 Plan of Care End Date 04/17/23 Therapeutic Interventions Therapeutic Interventions Balance Training,Coordination Training,Gait Training,Home Exercise Program,Joint Mobilizations,Manual Therapy, Neuromuscular Re-education, Patient/Caregiver Education, Self-Care/Home Management,Soft Tissue Mobilization, Therapeutic Activities, Therapeutic Exercises Modalities Cold Pack/Ice Massage,Hot Packs Next Visit Focus/Plan Next Note Type Treatment Note Next Visit Plan Progress functional strength and higher level dynamic gait/ balance activities.
--- NOTE | 2023-04-08 14:21 | PT.OTN ---
Current Diagnoses Other chronic pain (04/08/23) Pain in right hip (04/08/23) Pain in left hip (04/08/23) Pain in left leg (04/08/23) Other abnormalities of gait and mobility (04/08/23) History of falling (04/08/23) Physical Therapy Treatment Note PT-OP-A Visit Information Start: 02/12/23 17:12 Freq: Status: Active Protocol: Document 04/08/23 14:21 AM (Rec: 04/08/23 15:10 AM [id number]) Out-Patient Physical Therapy Visit Information Visit Information Visit Type Treatment Note Visit Start Time 14:21 Visit Stop Time 15:06 Total Visit Minutes 45 Visit Number 11 PT-OP-B Current Condition Start: 02/12/23 17:12 Freq: Status: Active Protocol: Document 02/26/23 10:35 AM (Rec: 02/26/23 11:27 AM [id number]) Current Condition History of Current Condition Onset Date Chronic History of Current Condition Pt reports that her hip pain has improved since she has been taking tylenol. Pt reports numbness at L foot following TIA. Pt reports that she has muscle fatigue by the evening. Pt reports that she has a general fatigue at at [facility] in the evening. Pt reports that she rides her recumbent bike 15 min daily. Pt reports that she walks with a walking stick with her daily 1/2 mile walks. Pt had a recent fall in December. She fell off of last 2 steps on to concrete. She broke her L pinky and R middle toe. Pt had TIA on October 2022. PT-OP-C Subjective Start: 02/12/23 17:12 Freq: Status: Active Protocol: Document 04/08/23 14:21 AM (Rec: 04/08/23 15:10 AM [id number]) OP-PT Subjective Patient Comments Patient Comments Pt reports that she is very tired today. Pt reports increased activity yesterday and stayed up later than normal. PT-OP-D Balance Start: 02/12/23 17:12 Freq: Status: Active Protocol: Document 03/08/23 16:06 AM (Rec: 03/08/23 16:33 AM [id number]) Rondon Balance Assessment Evaluation Sitting to Standing Ability Independent w/out Hands Unsupported Stance Safely- 2 minutes Sitting Unsupported, Feet on Floor Safely- 2 minutes Standing to Sitting Ability Safely, Minimal Hand Use Transfer Ability Safely, Minimal Hand Use Unsupported Stance- Eyes Closed Safely, 10 seconds Unsupported Stance- Eyes Open Independent, 1 minute Reaching Forward Standing Confidently, 10 inches Pick- Up Object From Floor Independent/Safe Look Behind Shoulder - Standing Shifts Weight Well Turning 360 Degrees Turns Bilateral, < 4 secs Unsupported Stance, Alternating Feet on (I)- 8 Steps in 20 secs Stair Unsupported Tandem Stance Holds Tandem- 30 seconds Unilateral Leg Stance Lifts Leg/Holds 5-10 secs Total Score Rondon Total Score (out of 56 points) 54 PT-OP-E Functional Tests Start: 02/12/23 17:12 Freq: Status: Active Protocol: Document 02/13/23 09:53 AM (Rec: 02/13/23 11:34 AM [id number]) Functional Tests 30 Second Sit to Stand Test Score 16 Four Step Square Test Score 12 sec PT-OP-G Mobility & Gait Start: 02/12/23 17:12 Freq: Status: Active Protocol: Document 02/13/23 09:53 AM (Rec: 02/13/23 11:34 AM [id number]) OP Gait Assessment Gait Gait Assistance Required: Independent Assistive Devices Assistive Device None Gait Deviations General Gait Pattern Decreased Stride Length,Wide Based Gait PT-OP-M Strength Start: 02/12/23 17:12 Freq: Status: Active Protocol: Document 02/13/23 09:53 AM (Rec: 02/13/23 11:34 AM [id number]) Hip Strength Hip Manual Muscle Testing Left Flexion (L2) 3+ Fair+ Abduction 3+ Fair+ Adduction 4+ Good+ External Rotation 4- Good- Internal Rotation 4- Good- Right Flexion (L2) 3+ Fair+ Abduction 4 Good Adduction 4+ Good+ External Rotation 4- Good- Internal Rotation 4- Good- Knee Strength Knee Manual Muscle Testing Left Flexion (S2) 4 Good Extension (L3) 4 Good Right Flexion (S2) 4+ Good+ Extension (L3) 4+ Good+ Ankle/Foot Strength Ankle and Foot Manual Muscle Testing Left Dorsiflexion (L4) 4 Good Plantarflexion (S1) 4 Good Right Dorsiflexion (L4) 5 Normal Plantarflexion (S1) 4+ Good+ PT-OP-Q Treatments Start: 02/12/23 17:12 Freq: Status: Active Protocol: Document 04/08/23 14:21 AM (Rec: 04/08/23 15:10 AM [id number]) Cardio Equipment Recumbent Stepper (Sci-Fit) Duration (Minutes) 6 Resistance 3 Seat Position 9 Therapeutic Exercises Standing Exercises Side step Side bilateral Resistance [employer] TB Reps/Minutes 2x20 ft Hip extension Standing Exercise Name Hip extension Side bilateral Resistance [employer] TB Equipment Used railing Reps/Minutes 2x10 Hip abduction Standing Exercise Name standing hip abduction Side bilateral Resistance [employer] Reps/Minutes 2x10 Manual Therapy Treatment Manual Techniques Hip stretching Type hamstrings, piriformis, hip flexor Body Position Supine Reps/Duration 2x30 sec ea PT-OP-T Assessment and Plan Start: 02/12/23 17:12 Freq: Status: Active Protocol: Document 04/08/23 14:21 AM (Rec: 04/08/23 15:10 AM [id number]) Physical Therapy Assessment Goals Hip strength Impairment Hip strength impairment Impairment Pt with 3+to 4-/5 strength grossly at B hips. Short Term Goal (STG) Pt to demonstrate grossly 4/5 B hip strength. 03/08/23: Goal met with 4/5 B hip strength STG Duration 03/06/23 Care Home Goal (LTG) Pt to demonstrate grossly 4+ to 5/5 B hip strength. LTG Duration 04/17/23 Rondon Impairment Rondon Balance score Impairment Pt with mild fall risk per Rondon balance score of 44/56. Short Term Goal (STG) Pt with Rondon balance score of 50/56 03/08/23-GOAL MET with Rondon score of 54/56 STG Duration 03/06/23 Contract Accountant Goal (LTG) Pt with Rondon balance score of 56/56 LTG Duration 04/17/23 LEFS Impairment Pt with score of 33/80 on LEFS Short Term Goal (STG) Pt with score of 45/80 on LEFS 03/08/23: No change since IE. Pt with score of 33/80 STG Duration 03/06/23 Care Home Goal (LTG) Pt with score of 55/80 on LEFS LTG Duration 04/17/23 Three Impairment Balance impairment Impairment Pt able to tandem stance for 15 seconds. Short Term Goal (STG) Pt able to tandem stance for 30 seconds. 03/08/23-GOAL MET, Pt able to hold for 30+ seconds bilaterally. STG Duration 03/06/23 Care Home Goal (LTG) Pt able to tandem stance for 45 seconds. LTG Duration 04/17/23 Two Impairment Fatigue Impairment Pt with reported fatigue and decrease endurance, particularly at the end of the day. [facility] Home Goal (LTG) Pt to report 50% improvement in endurance/energy levels in the afternoon/evening. LTG Duration 04/17/23 Assessment Summary Assessment Pt with fair tolerance to PRE today. Pt with increased overall fatigue levels and reported stiffness, therefore increased focus on LE stretching today. Pt with glute fatigue with banded exercises. Pt will return to PT later this week to reassess progress to determine future POC. Physical Therapy Plan Frequency and Duration Frequency of Treatment 2x/Week Duration of treatment (weeks) 9 Plan of Care Start Date 02/13/23 Plan of Care End Date 04/17/23 Therapeutic Interventions Therapeutic Interventions Balance Training,Coordination Training,Gait Training,Home Exercise Program,Joint Mobilizations,Manual Therapy, Neuromuscular Re-education, Patient/Caregiver Education, Self-Care/Home Management,Soft Tissue Mobilization, Therapeutic Activities, Therapeutic Exercises Modalities Cold Pack/Ice Massage,Hot Packs Next Visit Focus/Plan Next Note Type Treatment Note Next Visit Plan Progress functional strength and higher level dynamic gait/ balance activities.
--- NOTE | 2023-04-12 14:21 | PT.OPPOC ---
Physical, Occupational & Speech Therapy At [facility] Current Diagnoses Other chronic pain (04/12/23) Pain in right hip (04/12/23) Pain in left hip (04/12/23) Pain in left leg (04/12/23) Other abnormalities of gait and mobility (04/12/23) History of falling (04/12/23) Visit Care Team Role Provider Type Brice Giron DO Attending Provider Physician Family Provider Primary Care Provider Referring Provider Specialty: Family Practice Address: [address] [place] [address], [facility] Email: [email or web address] Of [facility] PT-OP-T Assessment and Plan Start: 02/12/23 17:12 Freq: Status: Active Protocol: Document 04/12/23 14:21 AM (Rec: 04/12/23 15:37 AM [id number]) Physical Therapy Assessment Goals Hip strength Impairment Hip strength impairment Impairment Pt with 3+to 4-/5 strength grossly at B hips. Short Term Goal (STG) Pt to demonstrate grossly 4/5 B hip strength. 03/08/23: Goal met with 4/5 B hip strength STG Duration 03/06/23 Food Beverage Server Goal (LTG) Pt to demonstrate grossly 4+ to 5/5 B hip strength. 04/12/23: Pt with 4+/5 strength with most hip muscles , though demonstrates 4- at L hip flexors. LTG Duration 05/01/23 Rondon Impairment Rondon Balance score Impairment Pt with mild fall risk per Rondon balance score of 44/56. Short Term Goal (STG) Pt with Rondon balance score of 50/56 03/08/23-GOAL MET with Rondon score of 54/56 STG Duration 03/06/23 Food Beverage Server Goal (LTG) Pt with Rondon balance score of 56/56 04/12/23: Pt with Rondon balance score of 56/56. LTG Duration 04/17/23-goal met LEFS Impairment Pt with score of 33/80 on LEFS Short Term Goal (STG) Pt with score of 45/80 on LEFS 03/08/23: No change since IE. Pt with score of 33/80 STG Duration 03/06/23 Food Beverage Server Goal (LTG) Pt with score of 55/80 on LEFS LTG Duration 05/01/23 Three Impairment Balance impairment Impairment Pt able to tandem stance for 15 seconds. Short Term Goal (STG) Pt able to tandem stance for 30 seconds. 03/08/23-GOAL MET, Pt able to hold for 30+ seconds bilaterally. STG Duration 03/06/23 Care Home Goal (LTG) Pt able to tandem stance for 45 seconds. 04/12/23: Goal partially met. Pt able to drafting clerk tandem for 1 min with R LE in back and 30 seconds with L LE in back . LTG Duration 05/01/23 Two Impairment Fatigue Impairment Pt with reported fatigue and decrease endurance, particularly at the end of the day. Food Beverage Server Goal (LTG) Pt to report 50% improvement in endurance/energy levels in the afternoon/evening. 04/12/23: Minimal change in fatigue level. LTG Duration 05/01/23 Assessment Summary Assessment Pt demonstrates improving strength at all areas of L LE, except for weakness at L hip flexors. Resisted hip flexion added to HEP. Pt demonstrated stiffness at L quad with prone stretching, also added to HEP . Pt demonstrates improving overall balance. Pt would benefit from continued PT to increase focus on L quad/hip flexor mobility and L hip flexor strength to improve tolerance to standing and walking activities. POC updated for 2 additional weeks . Physical Therapy Plan Frequency and Duration Frequency of Treatment 2x/Week Duration of treatment (weeks) 11 Plan of Care Start Date 02/13/23 Plan of Care End Date 05/01/23 Therapeutic Interventions Therapeutic Interventions Balance Training,Coordination Training,Gait Training,Home Exercise Program,Joint Mobilizations,Manual Therapy, Neuromuscular Re-education, Patient/Caregiver Education, Self-Care/Home Management,Soft Tissue Mobilization, Therapeutic Activities, Therapeutic Exercises Modalities Cold Pack/Ice Massage,Hot Packs Next Visit Focus/Plan Next Note Type Treatment Note Next Visit Plan Focus on L hip flexor strength and L hip flexor/quad mobility Plan of Care Dates Plan of Care Start Date 02/13/23 Plan of Care End Date 05/01/23 Electronically Signed by: Gladys Shepard, PT 04/12/23 [id number] If you are in agreement with this Plan of Care, please return a signed and dated copy. I have reviewed this Plan of Care and certify that the skilled therapy services above are required to meet the patient?s needs. Physician Signature Date Printed Name and Credentials Clinical Instructor Signature Printed Name and Credentials
--- NOTE | 2023-04-12 14:21 | PT.OTN ---
Current Diagnoses Other chronic pain (04/12/23) Pain in right hip (04/12/23) Pain in left hip (04/12/23) Pain in left leg (04/12/23) Other abnormalities of gait and mobility (04/12/23) History of falling (04/12/23) Physical Therapy Treatment Note PT-OP-A Visit Information Start: 02/12/23 17:12 Freq: Status: Active Protocol: Document 04/12/23 14:21 AM (Rec: 04/12/23 15:37 AM [id number]) Out-Patient Physical Therapy Visit Information Visit Information Visit Type Progress Note Visit Start Time 14:21 Visit Stop Time 15:11 Total Visit Minutes 50 Visit Number 12 PT-OP-B Current Condition Start: 02/12/23 17:12 Freq: Status: Active Protocol: Document 02/26/23 10:35 AM (Rec: 02/26/23 11:27 AM [id number]) Current Condition History of Current Condition Onset Date Chronic History of Current Condition Pt reports that her hip pain has improved since she has been taking tylenol. Pt reports numbness at L foot following TIA. Pt reports that she has muscle fatigue by the evening. Pt reports that she has a general fatigue at at isaura LE in the evening. Pt reports that she rides her recumbent bike 15 min daily. Pt reports that she walks with a walking stick with her daily 1/2 mile walks. Pt had a recent fall in December. She fell off of last 2 steps on to concrete. She broke her L pinky and R middle toe. Pt had TIA on October 2022. PT-OP-C Subjective Start: 02/12/23 17:12 Freq: Status: Active Protocol: Document 04/12/23 14:21 AM (Rec: 04/12/23 15:37 AM [id number]) OP-PT Subjective Patient Comments Patient Comments Pt reports that she continues to have fatigue, though has been attempting to add smaller time frame of exercise throughout the day. This include 5 min on bike or 5 min walk with trekking pole. PT-OP-D Balance Start: 02/12/23 17:12 Freq: Status: Active Protocol: Document 04/12/23 14:21 AM (Rec: 04/12/23 15:37 AM [id number]) Rondon Balance Assessment Evaluation Sitting to Standing Ability Independent w/out Hands Unsupported Stance Safely- 2 minutes Sitting Unsupported, Feet on Floor Safely- 2 minutes Standing to Sitting Ability Safely, Minimal Hand Use Unsupported Stance- Eyes Closed Safely, 10 seconds Unsupported Stance- Eyes Open Independent, 1 minute Reaching Forward Standing Confidently, 10 inches Pick- Up Object From Floor Independent/Safe Look Behind Shoulder - Standing Shifts Weight Well Turning 360 Degrees Turns Bilateral, < 4 secs Unsupported Stance, Alternating Feet on (I)- 8 Steps in 20 secs Stair Unsupported Tandem Stance Achieves Tandem Unilateral Leg Stance Lifts Leg/Holds 10 secs Total Score Rondon Total Score (out of 56 points) 52 PT-OP-E Functional Tests Start: 02/12/23 17:12 Freq: Status: Active Protocol: Document 02/13/23 09:53 AM (Rec: 02/13/23 11:34 AM [id number]) Functional Tests 30 Second Sit to Stand Test Score 16 Four Step Square Test Score 12 sec PT-OP-G Mobility & Gait Start: 02/12/23 17:12 Freq: Status: Active Protocol: Document 02/13/23 09:53 AM (Rec: 02/13/23 11:34 AM [id number]) OP Gait Assessment Gait Gait Assistance Required: Independent Assistive Devices Assistive Device None Gait Deviations General Gait Pattern Decreased Stride Length,Wide Based Gait PT-OP-M Strength Start: 02/12/23 17:12 Freq: Status: Active Protocol: Document 02/13/23 09:53 AM (Rec: 02/13/23 11:34 AM [id number]) Hip Strength Hip Manual Muscle Testing Left Flexion (L2) 3+ Fair+ Abduction 3+ Fair+ Adduction 4+ Good+ External Rotation 4- Good- Internal Rotation 4- Good- Right Flexion (L2) 3+ Fair+ Abduction 4 Good Adduction 4+ Good+ External Rotation 4- Good- Internal Rotation 4- Good- Knee Strength Knee Manual Muscle Testing Left Flexion (S2) 4 Good Extension (L3) 4 Good Right Flexion (S2) 4+ Good+ Extension (L3) 4+ Good+ Ankle/Foot Strength Ankle and Foot Manual Muscle Testing Left Dorsiflexion (L4) 4 Good Plantarflexion (S1) 4 Good Right Dorsiflexion (L4) 5 Normal Plantarflexion (S1) 4+ Good+ PT-OP-Q Treatments Start: 02/12/23 17:12 Freq: Status: Active Protocol: Document 04/12/23 14:21 AM (Rec: 04/12/23 15:37 AM [id number]) Cardio Equipment Recumbent Stepper (Sci-Fit) Duration (Minutes) 6 Resistance 3 Seat Position 9 Therapeutic Exercises Supine Exercises Resisted hip flexion Side bilateral Resistance [place] TB Reps/Minutes x5 Comments Quick fatigue of L hip flexors Prone Exercises Prone quad stretch Side bilateral Equipment Used gait belt around foot Reps/Minutes x30 sec Neuro Re-Education Treatment Balance Activities SLS Details SLS Surface stable Equipment // bars Tandem Details tandem stance Surface stable Equipment // bars Self-Care/Home Management Treatment Education Patient Education Home Exercise Program Other Education updated HEP PT-OP-T Assessment and Plan Start: 02/12/23 17:12 Freq: Status: Active Protocol: Document 04/12/23 14:21 AM (Rec: 04/12/23 15:37 AM [id number]) Physical Therapy Assessment Goals Hip strength Impairment Hip strength impairment Impairment Pt with 3+to 4-/5 strength grossly at B hips. Short Term Goal (STG) Pt to demonstrate grossly 4/5 B hip strength. 03/08/23: Goal met with 4/5 B hip strength STG Duration 03/06/23 Project Coordinator Goal (LTG) Pt to demonstrate grossly 4+ to 5/5 B hip strength. 04/12/23: Pt with 4+/5 strength with most hip muscles , though demonstrates 4- at L hip flexors. LTG Duration 05/01/23 Rondon Impairment Rondon Balance score Impairment Pt with mild fall risk per Rondon balance score of 44/56. Short Term Goal (STG) Pt with Ronodn balance score of 50/56 03/08/23-GOAL MET with Rondon score of 54/56 STG Duration 03/06/23 Project Coordinator Goal (LTG) Pt with Rondon balance score of 56/56 04/12/23: Pt with Rondon balance score of 56/56. LTG Duration 04/17/23-goal met LEFS Impairment Pt with score of 33/80 on LEFS Short Term Goal (STG) Pt with score of 45/80 on LEFS 03/08/23: No change since IE. Pt with score of 33/80 STG Duration 03/06/23 Project Coordinator Goal (LTG) Pt with score of 55/80 on LEFS LTG Duration 05/01/23 Three Impairment Balance impairment Impairment Pt able to tandem stance for 15 seconds. Short Term Goal (STG) Pt able to tandem stance for 30 seconds. 03/08/23-GOAL MET, Pt able to hold for 30+ seconds bilaterally. STG Duration 03/06/23 Mcc Goal (LTG) Pt able to tandem stance for 45 seconds. 04/12/23: Goal partially met. Pt able to business office representative tandem for 1 min with R LE in back and 30 seconds with L LE in back . LTG Duration 05/01/23 Two Impairment Fatigue Impairment Pt with reported fatigue and decrease endurance, particularly at the end of the day. Mcc Goal (LTG) Pt to report 50% improvement in endurance/energy levels in the afternoon/evening. 04/12/23: Minimal change in fatigue level. LTG Duration 05/01/23 Assessment Summary Assessment Pt demonstrates improving strength at all areas of L LE, except for weakness at L hip flexors. Resisted hip flexion added to HEP. Pt demonstrated stiffness at L quad with prone stretching, also added to HEP . Pt demonstrates improving overall balance. Pt would benefit from continued PT to increase focus on L quad/hip flexor mobility and L hip flexor strength to improve tolerance to standing and walking activities. POC updated for 2 additional weeks . Physical Therapy Plan Frequency and Duration Frequency of Treatment 2x/Week Duration of treatment (weeks) 11 Plan of Care Start Date 02/13/23 Plan of Care End Date 05/01/23 Therapeutic Interventions Therapeutic Interventions Balance Training,Coordination Training,Gait Training,Home Exercise Program,Joint Mobilizations,Manual Therapy, Neuromuscular Re-education, Patient/Caregiver Education, Self-Care/Home Management,Soft Tissue Mobilization, Therapeutic Activities, Therapeutic Exercises Modalities Cold Pack/Ice Massage,Hot Packs Next Visit Focus/Plan Next Note Type Treatment Note Next Visit Plan Focus on L hip flexor strength and L hip flexor/quad mobility
--- NOTE | 2023-04-19 12:20 | PT.OTN ---
Current Diagnoses Other chronic pain (04/19/23) Pain in right hip (04/19/23) Pain in left hip (04/19/23) Pain in left leg (04/19/23) Other abnormalities of gait and mobility (04/19/23) History of falling (04/19/23) Physical Therapy Treatment Note PT-OP-A Visit Information Start: 02/12/23 17:12 Freq: Status: Active Protocol: Document 04/19/23 12:20 AM (Rec: 04/19/23 13:27 AM [id number]) Out-Patient Physical Therapy Visit Information Visit Information Visit Type Treatment Note Visit Start Time 12:20 Visit Stop Time 13:00 Total Visit Minutes 40 Visit Number 13 PT-OP-B Current Condition Start: 02/12/23 17:12 Freq: Status: Active Protocol: Document 02/26/23 10:35 AM (Rec: 02/26/23 11:27 AM [id number]) Current Condition History of Current Condition Onset Date Chronic History of Current Condition Pt reports that her hip pain has improved since she has been taking tylenol. Pt reports numbness at L foot following TIA. Pt reports that she has muscle fatigue by the evening. Pt reports that she has a general fatigue at at tunde LE in the evening. Pt reports that she rides her recumbent bike 15 min daily. Pt reports that she walks with a walking stick with her daily 1/2 mile walks. Pt had a recent fall in December. She fell off of last 2 steps on to concrete. She broke her L pinky and R middle toe. Pt had TIA on October 2022. PT-OP-C Subjective Start: 02/12/23 17:12 Freq: Status: Active Protocol: Document 04/19/23 12:20 AM (Rec: 04/19/23 13:27 AM [id number]) OP-PT Subjective Patient Comments Patient Comments Pt reports that she has been feeling better this week. Pt reports that she has not been doing her exercises as much, though she feels that she has been able to walk more. Pt reports that she feels that her numbness has improved. PT-OP-D Balance Start: 02/12/23 17:12 Freq: Status: Active Protocol: Document 04/12/23 14:21 AM (Rec: 04/12/23 15:37 AM [id number]) Rondon Balance Assessment Evaluation Sitting to Standing Ability Independent w/out Hands Unsupported Stance Safely- 2 minutes Sitting Unsupported, Feet on Floor Safely- 2 minutes Standing to Sitting Ability Safely, Minimal Hand Use Unsupported Stance- Eyes Closed Safely, 10 seconds Unsupported Stance- Eyes Open Independent, 1 minute Reaching Forward Standing Confidently, 10 inches Pick- Up Object From Floor Independent/Safe Look Behind Shoulder - Standing Shifts Weight Well Turning 360 Degrees Turns Bilateral, < 4 secs Unsupported Stance, Alternating Feet on (I)- 8 Steps in 20 secs Stair Unsupported Tandem Stance Achieves Tandem Unilateral Leg Stance Lifts Leg/Holds 10 secs Total Score Rondon Total Score (out of 56 points) 52 PT-OP-E Functional Tests Start: 02/12/23 17:12 Freq: Status: Active Protocol: Document 02/13/23 09:53 AM (Rec: 02/13/23 11:34 AM [id number]) Functional Tests 30 Second Sit to Stand Test Score 16 Four Step Square Test Score 12 sec PT-OP-G Mobility & Gait Start: 02/12/23 17:12 Freq: Status: Active Protocol: Document 02/13/23 09:53 AM (Rec: 02/13/23 11:34 AM [id number]) OP Gait Assessment Gait Gait Assistance Required: Independent Assistive Devices Assistive Device None Gait Deviations General Gait Pattern Decreased Stride Length,Wide Based Gait PT-OP-M Strength Start: 02/12/23 17:12 Freq: Status: Active Protocol: Document 02/13/23 09:53 AM (Rec: 02/13/23 11:34 AM [id number]) Hip Strength Hip Manual Muscle Testing Left Flexion (L2) 3+ Fair+ Abduction 3+ Fair+ Adduction 4+ Good+ External Rotation 4- Good- Internal Rotation 4- Good- Right Flexion (L2) 3+ Fair+ Abduction 4 Good Adduction 4+ Good+ External Rotation 4- Good- Internal Rotation 4- Good- Knee Strength Knee Manual Muscle Testing Left Flexion (S2) 4 Good Extension (L3) 4 Good Right Flexion (S2) 4+ Good+ Extension (L3) 4+ Good+ Ankle/Foot Strength Ankle and Foot Manual Muscle Testing Left Dorsiflexion (L4) 4 Good Plantarflexion (S1) 4 Good Right Dorsiflexion (L4) 5 Normal Plantarflexion (S1) 4+ Good+ PT-OP-Q Treatments Start: 02/12/23 17:12 Freq: Status: Active Protocol: Document 04/19/23 12:20 AM (Rec: 04/19/23 13:27 AM [id number]) Cardio Equipment Recumbent Bicycle Duration (Minutes) 5 Resistance 6 Seat Position 1 Therapeutic Exercises Supine Exercises Resisted hip flexion Side bilateral Resistance [place] TB Reps/Minutes 2x5 Comments Quick fatigue of L hip flexors Prone Exercises Hip extension Side bilateral Reps/Minutes x10 Comments cues for abdominal stab Prone quad stretch Side bilateral Equipment Used manual Reps/Minutes 2x30 sec Sidelying Exercises Sidelying SLR Side bilateral Reps/Minutes x10 Comments manual cueing to decrease hip flexion, manual assist on L clamshell Side bilateral Resistance Ramsey TB Reps/Minutes x10 Manual Therapy Treatment Soft Tissue Mobilization Tunde quads/ITB Body Location L quads, glutes, HS and ITB Mobilization Type Myofascial Release,Rolling Intensity/Depth Moderate Comments supine and R sidelying PT-OP-T Assessment and Plan Start: 02/12/23 17:12 Freq: Status: Active Protocol: Document 04/19/23 12:20 AM (Rec: 04/19/23 13:27 AM [id number]) Physical Therapy Assessment Goals Hip strength Impairment Hip strength impairment Impairment Pt with 3+to 4-/5 strength grossly at B hips. Short Term Goal (STG) Pt to demonstrate grossly 4/5 B hip strength. 03/08/23: Goal met with 4/5 B hip strength STG Duration 03/06/23 Merchandise Associate Goal (LTG) Pt to demonstrate grossly 4+ to 5/5 B hip strength. 04/12/23: Pt with 4+/5 strength with most hip muscles , though demonstrates 4- at L hip flexors. LTG Duration 05/01/23 LEFS Impairment Pt with score of 33/80 on LEFS Short Term Goal (STG) Pt with score of 45/80 on LEFS 03/08/23: No change since IE. Pt with score of 33/80 STG Duration 03/06/23 Merchandise Associate Goal (LTG) Pt with score of 55/80 on LEFS LTG Duration 05/01/23 Three Impairment Balance impairment Impairment Pt able to tandem stance for 15 seconds. Short Term Goal (STG) Pt able to tandem stance for 30 seconds. 03/08/23-GOAL MET, Pt able to hold for 30+ seconds bilaterally. STG Duration 03/06/23 Merchandise Associate Goal (LTG) Pt able to tandem stance for 45 seconds. 04/12/23: Goal partially met. Pt able to seismic prospecting observer helper tandem for 1 min with R LE in back and 30 seconds with L LE in back . LTG Duration 05/01/23 Two Impairment Fatigue Impairment Pt with reported fatigue and decrease endurance, particularly at the end of the day. Merchandise Associate Goal (LTG) Pt to report 50% improvement in endurance/energy levels in the afternoon/evening. 04/12/23: Minimal change in fatigue level. LTG Duration 05/01/23 Assessment Summary Assessment Pt with quicker fatigue of L LE compared to R with exercises. Pt with improved quad length compared to previous session. Pt with tenderness at quads and along ITB with STM. Pt requires cueing for trunk stabilization during table exercises. Pt would benefit from continued PT to progress L LE strength for improved tolerance to walking and functional tasks. Physical Therapy Plan Frequency and Duration Frequency of Treatment 2x/Week Duration of treatment (weeks) 11 Plan of Care Start Date 02/13/23 Plan of Care End Date 05/01/23 Therapeutic Interventions Therapeutic Interventions Balance Training,Coordination Training,Gait Training,Home Exercise Program,Joint Mobilizations,Manual Therapy, Neuromuscular Re-education, Patient/Caregiver Education, Self-Care/Home Management,Soft Tissue Mobilization, Therapeutic Activities, Therapeutic Exercises Modalities Cold Pack/Ice Massage,Hot Packs Next Visit Focus/Plan Next Note Type Treatment Note Next Visit Plan Focus on L hip flexor strength and L hip flexor/quad mobility
--- NOTE | 2023-04-25 12:18 | PT.OPPOC ---
Physical, Occupational & Speech Therapy At [facility] Current Diagnoses Other chronic pain (04/25/23) Pain in right hip (04/25/23) Pain in left hip (04/25/23) Pain in left leg (04/25/23) Other abnormalities of gait and mobility (04/25/23) History of falling (04/25/23) Visit Care Team Role Provider Type Brice Giron DO Attending Provider Physician Family Provider Primary Care Provider Referring Provider Specialty: Family Practice Address: [address] [place] [address], [facility] Email: [email or web address] Plan Of Care PT-OP-T Assessment and Plan Start: 02/12/23 17:12 Freq: Status: Active Protocol: Document 04/25/23 12:18 AM (Rec: 04/25/23 13:29 AM [id number]) Physical Therapy Assessment Goals Hip strength Impairment Hip strength impairment Impairment Pt with 3+to 4-/5 strength grossly at B hips. Short Term Goal (STG) Pt to demonstrate grossly 4/5 B hip strength. 03/08/23: Goal met with 4/5 B hip strength STG Duration 03/06/23 Arts And Crafts Teacher Goal (LTG) Pt to demonstrate grossly 4+ to 5/5 B hip strength. 04/12/23: Pt with 4+/5 strength with most hip muscles , though demonstrates 4- at L hip flexors. 04/25/23: Pt demonstrates 4/5 L hip flexor length. LTG Duration 05/08/23 LEFS Impairment Pt with score of 33/80 on LEFS Short Term Goal (STG) Pt with score of 45/80 on LEFS 03/08/23: No change since IE. Pt with score of 33/80 STG Duration 03/06/23 Longterm Goal (LTG) Pt with score of 55/80 on LEFS 04/25/23: Goal unmet, thoug improved since IE at 38/80 LTG Duration 05/08/23 Three Impairment Balance impairment Impairment Pt able to tandem stance for 15 seconds. Short Term Goal (STG) Pt able to tandem stance for 30 seconds. 03/08/23-GOAL MET, Pt able to hold for 30+ seconds bilaterally. STG Duration 03/06/23 Longterm Goal (LTG) Pt able to tandem stance for 45 seconds. 04/12/23: Goal partially met. Pt able to cone examiner tandem for 1 min with R LE in back and 30 seconds with L LE in back . 04/25/23: Goal met 45 sec isaura LTG Duration 05/08/23-achieved Two Impairment Fatigue Impairment Pt with reported fatigue and decrease endurance, particularly at the end of the day. Longterm Goal (LTG) Pt to report 50% improvement in endurance/energy levels in the afternoon/evening. 04/12/23: Minimal change in fatigue level. 04/25/23: Progressing towards goal. Continues to report fatigue levels LTG Duration 05/08/23 Progress Towards Goals Progress Towards Goals Progressing Toward Goals Progress Comments Pt met 2 goals and making progress towards all remaining goals. Assessment Summary Assessment POC modified for final visit on 05/03. Pt demonstrates improved L hip flexor strength and quad length since previous assessment. Pt with improved overall balance, meeting all balance goals. Pt with tenderness along ITB, quads and glutes. Pt will return to PT for 1 more visit to finalize HEP. Physical Therapy Plan Frequency and Duration Frequency of Treatment 2x/Week Duration of treatment (weeks) 12 Plan of Care Start Date 02/13/23 Plan of Care End Date 05/08/23 Therapeutic Interventions Therapeutic Interventions Balance Training,Coordination Training,Gait Training,Home Exercise Program,Joint Mobilizations,Manual Therapy, Neuromuscular Re-education, Patient/Caregiver Education, Self-Care/Home Management,Soft Tissue Mobilization, Therapeutic Activities, Therapeutic Exercises Modalities Cold Pack/Ice Massage,Hot Packs Next Visit Focus/Plan Next Note Type Treatment Note Next Visit Plan Review HEP for final appt. Plan of Care Dates Plan of Care Start Date 02/13/23 Plan of Care End Date 05/08/23 Electronically Signed by: Gladys Shepard, PT 04/25/23 [id number] If you are in agreement with this Plan of Care, please return a signed and dated copy. I have reviewed this Plan of Care and certify that the skilled therapy services above are required to meet the patient?s needs. Physician Signature Date Printed Name and Credentials Clinical Instructor Signature Printed Name and Credentials
--- NOTE | 2023-04-25 12:18 | PT.OTN ---
Current Diagnoses Other chronic pain (04/25/23) Pain in right hip (04/25/23) Pain in left hip (04/25/23) Pain in left leg (04/25/23) Other abnormalities of gait and mobility (04/25/23) History of falling (04/25/23) Physical Therapy Treatment Note PT-OP-A Visit Information Start: 02/12/23 17:12 Freq: Status: Active Protocol: Document 04/25/23 12:18 AM (Rec: 04/25/23 13:29 AM [id number]) Out-Patient Physical Therapy Visit Information Visit Information Visit Type Progress Note Visit Note Modifier Visit Start Time 12:20 Visit Stop Time 13:05 Total Visit Minutes 45 Visit Number 13 PT-OP-B Current Condition Start: 02/12/23 17:12 Freq: Status: Active Protocol: Document 02/26/23 10:35 AM (Rec: 02/26/23 11:27 AM [id number]) Current Condition History of Current Condition Onset Date Chronic History of Current Condition Pt reports that her hip pain has improved since she has been taking tylenol. Pt reports numbness at L foot following TIA. Pt reports that she has muscle fatigue by the evening. Pt reports that she has a general fatigue at at tunde LE in the evening. Pt reports that she rides her recumbent bike 15 min daily. Pt reports that she walks with a walking stick with her daily 1/2 mile walks. Pt had a recent fall in December. She fell off of last 2 steps on to concrete. She broke her L pinky and R middle toe. Pt had TIA on October 2022. PT-OP-C Subjective Start: 02/12/23 17:12 Freq: Status: Active Protocol: Document 04/25/23 12:18 AM (Rec: 04/25/23 13:29 AM [id number]) OP-PT Subjective Patient Comments Patient Comments Pt reports that she is going to start taking an aerobics class. Pt report that she feels stiff today and not sure why. Pt reports that she was able to walk 2 laps at [place] recently. Pt reports improvement overall since start of PT. Patient Questionnaires Lower Extremity Functional Scale LEFS Score 38 LEFS Impairment 40 to 59% Impaired (Score 32- 47) PT-OP-D Balance Start: 02/12/23 17:12 Freq: Status: Active Protocol: Document 04/12/23 14:21 AM (Rec: 04/12/23 15:37 AM [id number]) Rondon Balance Assessment Evaluation Sitting to Standing Ability Independent w/out Hands Unsupported Stance Safely- 2 minutes Sitting Unsupported, Feet on Floor Safely- 2 minutes Standing to Sitting Ability Safely, Minimal Hand Use Unsupported Stance- Eyes Closed Safely, 10 seconds Unsupported Stance- Eyes Open Independent, 1 minute Reaching Forward Standing Confidently, 10 inches Pick- Up Object From Floor Independent/Safe Look Behind Shoulder - Standing Shifts Weight Well Turning 360 Degrees Turns Bilateral, < 4 secs Unsupported Stance, Alternating Feet on (I)- 8 Steps in 20 secs Stair Unsupported Tandem Stance Achieves Tandem Unilateral Leg Stance Lifts Leg/Holds 10 secs Total Score Rondon Total Score (out of 56 points) 52 PT-OP-E Functional Tests Start: 02/12/23 17:12 Freq: Status: Active Protocol: Document 02/13/23 09:53 AM (Rec: 02/13/23 11:34 AM [id number]) Functional Tests 30 Second Sit to Stand Test Score 16 Four Step Square Test Score 12 sec PT-OP-G Mobility & Gait Start: 02/12/23 17:12 Freq: Status: Active Protocol: Document 02/13/23 09:53 AM (Rec: 02/13/23 11:34 AM [id number]) OP Gait Assessment Gait Gait Assistance Required: Independent Assistive Devices Assistive Device None Gait Deviations General Gait Pattern Decreased Stride Length,Wide Based Gait PT-OP-M Strength Start: 02/12/23 17:12 Freq: Status: Active Protocol: Document 02/13/23 09:53 AM (Rec: 02/13/23 11:34 AM [id number]) Hip Strength Hip Manual Muscle Testing Left Flexion (L2) 3+ Fair+ Abduction 3+ Fair+ Adduction 4+ Good+ External Rotation 4- Good- Internal Rotation 4- Good- Right Flexion (L2) 3+ Fair+ Abduction 4 Good Adduction 4+ Good+ External Rotation 4- Good- Internal Rotation 4- Good- Knee Strength Knee Manual Muscle Testing Left Flexion (S2) 4 Good Extension (L3) 4 Good Right Flexion (S2) 4+ Good+ Extension (L3) 4+ Good+ Ankle/Foot Strength Ankle and Foot Manual Muscle Testing Left Dorsiflexion (L4) 4 Good Plantarflexion (S1) 4 Good Right Dorsiflexion (L4) 5 Normal Plantarflexion (S1) 4+ Good+ PT-OP-Q Treatments Start: 02/12/23 17:12 Freq: Status: Active Protocol: Document 04/25/23 12:18 AM (Rec: 04/25/23 13:29 AM [id number]) Cardio Equipment Recumbent Bicycle Duration (Minutes) 5 Resistance 6 Seat Position 1 Therapeutic Exercises Supine Exercises Resisted hip flexion Side bilateral Resistance Fountain TB Reps/Minutes 1x5, 1x8 Comments Quick fatigue of L hip flexors Prone Exercises Hip extension Side bilateral Reps/Minutes x10 Comments cues for abdominal stab Prone quad stretch Side bilateral Equipment Used manual Reps/Minutes 2x30 sec Sidelying Exercises Sidelying SLR Side bilateral Reps/Minutes x10 Comments manual cueing to decrease hip flexion, manual assist on L clamshell Side bilateral Resistance Fountain TB Reps/Minutes x10 Manual Therapy Treatment Soft Tissue Mobilization Tunde quads/ITB Body Location L quads, glutes, HS and ITB Mobilization Type Myofascial Release,Rolling Intensity/Depth Moderate Comments supine and R sidelying PT-OP-T Assessment and Plan Start: 02/12/23 17:12 Freq: Status: Active Protocol: Document 04/25/23 12:18 AM (Rec: 04/25/23 13:29 AM [id number]) Physical Therapy Assessment Goals Hip strength Impairment Hip strength impairment Impairment Pt with 3+to 4-/5 strength grossly at B hips. Short Term Goal (STG) Pt to demonstrate grossly 4/5 B hip strength. 03/08/23: Goal met with 4/5 B hip strength STG Duration 03/06/23 District Traffic Chief Goal (LTG) Pt to demonstrate grossly 4+ to 5/5 B hip strength. 04/12/23: Pt with 4+/5 strength with most hip muscles , though demonstrates 4- at L hip flexors. 04/25/23: Pt demonstrates 4/5 L hip flexor length. LTG Duration 05/08/23 LEFS Impairment Pt with score of 33/80 on LEFS Short Term Goal (STG) Pt with score of 45/80 on LEFS 03/08/23: No change since IE. Pt with score of 33/80 STG Duration 03/06/23 Alf Goal (LTG) Pt with score of 55/80 on LEFS 04/25/23: Goal unmet, thoug improved since IE at 38/80 LTG Duration 05/08/23 Three Impairment Balance impairment Impairment Pt able to tandem stance for 15 seconds. Short Term Goal (STG) Pt able to tandem stance for 30 seconds. 03/08/23-GOAL MET, Pt able to hold for 30+ seconds bilaterally. STG Duration 03/06/23 Alf Goal (LTG) Pt able to tandem stance for 45 seconds. 04/12/23: Goal partially met. Pt able to online merchant tandem for 1 min with R LE in back and 30 seconds with L LE in back . 04/25/23: Goal met 45 sec tunde LTG Duration 05/08/23-achieved Two Impairment Fatigue Impairment Pt with reported fatigue and decrease endurance, particularly at the end of the day. District Traffic Chief Goal (LTG) Pt to report 50% improvement in endurance/energy levels in the afternoon/evening. 04/12/23: Minimal change in fatigue level. 04/25/23: Progressing towards goal. Continues to report fatigue levels LTG Duration 05/08/23 Assessment Summary Assessment POC modified for final visit on 05/03. Pt demonstrates improved L hip flexor strength and quad length since previous assessment. Pt with improved overall balance, meeting all balance goals. Pt with tenderness along ITB, quads and glutes. Pt will return to PT for 1 more visit to finalize HEP. Physical Therapy Plan Frequency and Duration Frequency of Treatment 2x/Week Duration of treatment (weeks) 12 Plan of Care Start Date 02/13/23 Plan of Care End Date 05/08/23 Therapeutic Interventions Therapeutic Interventions Balance Training,Coordination Training,Gait Training,Home Exercise Program,Joint Mobilizations,Manual Therapy, Neuromuscular Re-education, Patient/Caregiver Education, Self-Care/Home Management,Soft Tissue Mobilization, Therapeutic Activities, Therapeutic Exercises Modalities Cold Pack/Ice Massage,Hot Packs Next Visit Focus/Plan Next Note Type Treatment Note Next Visit Plan Review HEP for final appt.
--- NOTE | 2023-05-06 17:33 | PT.OPDS ---
Current Diagnoses Other chronic pain (04/25/23) Pain in right hip (04/25/23) Pain in left hip (04/25/23) Pain in left leg (04/25/23) Other abnormalities of gait and mobility (04/25/23) History of falling (04/25/23) Visit Care Team Role Provider Type Brice Giron DO Attending Provider Physician Family Provider Primary Care Provider Referring Provider Specialty: [facility] Address: [address] [place] [address] Email: [email or web address] Visit Number Visit Number 13 Discharge Summary PT-OP-B Current Condition Start: 02/12/23 17:12 Freq: Status: Active Protocol: Document 02/26/23 10:35 AM (Rec: 02/26/23 11:27 AM [id number]) Current Condition History of Current Condition Onset Date Chronic History of Current Condition Pt reports that her hip pain has improved since she has been taking tylenol. Pt reports numbness at L foot following TIA. Pt reports that she has muscle fatigue by the evening. Pt reports that she has a general fatigue at at isaura LE in the evening. Pt reports that she rides her recumbent bike 15 min daily. Pt reports that she walks with a walking stick with her daily 1/2 mile walks. Pt had a recent fall in December. She fell off of last 2 steps on to concrete. She broke her L pinky and R middle toe. Pt had TIA on October 2022. PT-OP-C Subjective Start: 02/12/23 17:12 Freq: Status: Active Protocol: Document 04/25/23 12:18 AM (Rec: 04/25/23 13:29 AM [id number]) OP-PT Subjective Patient Comments Patient Comments Pt reports that she is going to start taking an aerobics class. Pt report that she feels stiff today and not sure why. Pt reports that she was able to walk 2 laps at [place] recently. Pt reports improvement overall since start of PT. Patient Questionnaires Lower Extremity Functional Scale LEFS Score 38 LEFS Impairment 40 to 59% Impaired (Score 32- 47) PT-OP-D Balance Start: 02/12/23 17:12 Freq: Status: Active Protocol: Document 04/12/23 14:21 AM (Rec: 04/12/23 15:37 AM [id number]) Rondon Balance Assessment Evaluation Sitting to Standing Ability Independent w/out Hands Unsupported Stance Safely- 2 minutes Sitting Unsupported, Feet on Floor Safely- 2 minutes Standing to Sitting Ability Safely, Minimal Hand Use Unsupported Stance- Eyes Closed Safely, 10 seconds Unsupported Stance- Eyes Open Independent, 1 minute Reaching Forward Standing Confidently, 10 inches Pick- Up Object From Floor Independent/Safe Look Behind Shoulder - Standing Shifts Weight Well Turning 360 Degrees Turns Bilateral, < 4 secs Unsupported Stance, Alternating Feet on (I)- 8 Steps in 20 secs Stair Unsupported Tandem Stance Achieves Tandem Unilateral Leg Stance Lifts Leg/Holds 10 secs Total Score Rondon Total Score (out of 56 points) 52 PT-OP-E Functional Tests Start: 02/12/23 17:12 Freq: Status: Active Protocol: Document 02/13/23 09:53 AM (Rec: 02/13/23 11:34 AM [id number]) Functional Tests 30 Second Sit to Stand Test Score 16 Four Step Square Test Score 12 sec PT-OP-G Mobility & Gait Start: 02/12/23 17:12 Freq: Status: Active Protocol: Document 02/13/23 09:53 AM (Rec: 02/13/23 11:34 AM [id number]) OP Gait Assessment Gait Gait Assistance Required: Independent Assistive Devices Assistive Device None Gait Deviations General Gait Pattern Decreased Stride Length,Wide Based Gait PT-OP-M Strength Start: 02/12/23 17:12 Freq: Status: Active Protocol: Document 02/13/23 09:53 AM (Rec: 02/13/23 11:34 AM [id number]) Hip Strength Hip Manual Muscle Testing Left Flexion (L2) 3+ Fair+ Abduction 3+ Fair+ Adduction 4+ Good+ External Rotation 4- Good- Internal Rotation 4- Good- Right Flexion (L2) 3+ Fair+ Abduction 4 Good Adduction 4+ Good+ External Rotation 4- Good- Internal Rotation 4- Good- Knee Strength Knee Manual Muscle Testing Left Flexion (S2) 4 Good Extension (L3) 4 Good Right Flexion (S2) 4+ Good+ Extension (L3) 4+ Good+ Ankle/Foot Strength Ankle and Foot Manual Muscle Testing Left Dorsiflexion (L4) 4 Good Plantarflexion (S1) 4 Good Right Dorsiflexion (L4) 5 Normal Plantarflexion (S1) 4+ Good+ PT-OP-T Assessment and Plan Start: 02/12/23 17:12 Freq: Status: Active Protocol: Document 05/06/23 17:33 AM (Rec: 05/06/23 17:36 AM [id number]) Physical Therapy Plan Discharge Physical Therapy Discharge Reasons Plateau in Progress Discharge Comments Pt d/c from PT. Pt canceled final PT session, though demonstrated good understanding of HEP at most recent PT session. Pt also reported that she is going to start attending aquatic aerobics. Pt attended 13 appointments and reports functional improvement since start of PT.
== END 2023-05-08 10:28 | disposition home or self-care (01) ==
LOC: PHYS 12:15
PROVIDERS: Absent Provider Family Medicine; Family Provider Family Medicine; PCP Family Medicine; Referring Provider Family Medicine; Visit Provider Family Medicine
DX: M25.551 Pain in right hip (principal); G89.29 Other chronic pain; R26.89 Other abnormalities of gait and mobility; Z91.81 History of falling; M79.605 Pain in left leg; M25.552 Pain in left hip
CPT/HCPCS: 97110; 97112; 97140; 97161; 97530

== ENCOUNTER → 2023-08-22 15:45 | Outpatient (CLI) | payer MEDICARE, BC, SELFPAY ==
[2022-10-24 17:22] VITALS: BMI 25.7
--- NOTE | 2023-08-22 15:47 | DI.RAD.S_ITS ---
PROCEDURE: XR KNEE LT 3V INDICATIONS: eval L knee pain TECHNIQUE: 3 views of the knee were acquired. COMPARISON: None. FINDINGS: Bones: No fractures or dislocations. No suspicious bony lesions. Narrowing of the lateral femorotibial joint and mild tricompartmental periarticular osteophyte formation. Soft tissues: Moderate joint effusion. No suspicious soft tissue calcifications. IMPRESSION: Mild tricompartmental knee joint degeneration. If pain persist with conservative management, consider cross-sectional imaging such as CT or MRI. Dictated by: Coy Ortiz [facility] Interpreted: Patrick Smith MD on 08/22/2023 at 16:23 Transcribed by: JEFFY on 08/22/2023 at 16:24 Approved by: Patrick Smith M.D. on 08/22/2023 at 20:37
== END ==
LOC: RAD 15:46
PROVIDERS: Family Provider Family Medicine; PCP Family Medicine; Referring Provider Family Medicine; Visit Provider Family Medicine
DX: M17.12 Unilateral primary osteoarthritis, left knee (principal); M25.562 Pain in left knee
CPT/HCPCS: 73562

== ENCOUNTER → 2023-10-04 07:23 | Outpatient (CLI) | payer MEDICARE, BC, SELFPAY ==
[2022-10-24 17:22] VITALS: BMI 25.7
[2023-10-04 08:10] LABS: Cholesterol 196 mg/dL (140-199); HDL Cholesterol 84 mg/dL (40-60); LDL Cholesterol Calculated 81 mg/dL (<100); Triglycerides 153 mg/dL (35-150)
== END ==
PROVIDERS: Family Provider Family Medicine; PCP Family Medicine; Referring Provider Family Medicine; Visit Provider Family Medicine
DX: E78.5 Hyperlipidemia, unspecified (principal)
CPT/HCPCS: 36415; 80061

== ENCOUNTER → 2023-10-25 08:39 | Outpatient (CLI) | payer MEDICARE, BC, SELFPAY ==
[2022-10-24 17:22] VITALS: BMI 25.7
[2023-10-28 12:37] LABS: Levetiracetam Keppra 21.7 ug/mL (10.0-40.0)
== END ==
PROVIDERS: Family Provider Family Medicine; PCP Family Medicine; Referring Provider Psychiatry & Neurology Neurology; Visit Provider Psychiatry & Neurology Neurology
DX: G40.109 Localization-related (focal) (partial) symptomatic epilepsy and epileptic syndromes with simple partial seizures, not intractable, without status epilepticus (principal)
CPT/HCPCS: 36415; 80177

== ENCOUNTER → 2023-11-07 14:25 | Outpatient (CLI) | payer MEDICARE, BC, SELFPAY ==
[2022-10-24 17:22] VITALS: BMI 25.7
== END ==
PROVIDERS: Family Provider Family Medicine; PCP Family Medicine; Referring Provider Psychiatry & Neurology Neurology; Visit Provider Psychiatry & Neurology Neurology
DX: E55.9 Vitamin D deficiency, unspecified (principal)
CPT/HCPCS: 82652

== ENCOUNTER → 2024-02-24 07:22 | Outpatient (CLI) | payer MEDICARE, BC, SELFPAY ==
[2022-10-24 17:22] VITALS: BMI 25.7
[2024-02-24 08:14] LABS: Add Manual Diff / Slide Review NO; Basophils Absolute Auto 0 /uL (0-100); Basophils Percent Auto 0.9 % (0-2); Eosinophils Absolute Auto 100 /uL (0-450); Eosinophils Percent Auto 2.7 % (2-4); Hematocrit 33.2 % (36-46); Hemoglobin 11.4 g/dL (12.0-16.0); Lymphocytes Absolute Auto 1900 /uL (1100-4500); Lymphocytes Percent Auto 40.5 % (25-40); Mean Corpuscular HGB Conc 34.4 % (30-36); Mean Corpuscular Hemoglobin 33.8 PG (26-34); Mean Corpuscular Volume 98.4 fL (80-100); Monocytes Absolute Auto 500 /uL (0-900); Monocytes Percent Auto 10.4 % (3-14); Neutrophils Absolute Auto 2100 /uL (1500-7000); Neutrophils Percent Auto 45.5 % (50-75); Platelet Count 346 X10^3/uL (150-400); Red Blood Cell Count 3.38 X10^6/uL (4.0-5.2); Red Cell Distribution Width 12.1 % (11.6-14.8); White Blood Cell Count 4.6 X10^3/uL (4.5-11.0)
[2024-02-24 08:19] LABS: Hemoglobin A1C% w Est Avg Glu 5.1 % (4.0-6.0)
[2024-02-24 09:31] LABS: Alanine Aminotransferase 19 IU/L (<35); Albumin 4.5 g/dL (3.5-5.0); Albumin Globulin Ratio 1.6 (1.0-2.8); Alkaline Phosphatase 73 U/L (38-126); Aspartate Aminotransferase 37 IU/L (14-36); BUN Creatinine Ratio 23.1 (6-22); Bilirubin Total 0.5 mg/dL (0.2-1.3); Blood Urea Nitrogen 24 mg/dL (7-17); Calcium 9.9 mg/dL (8.4-10.2); Carbon Dioxide 22 mmol/L (22-32); Chloride 101 mmol/L (98-107); Cholesterol 203 mg/dL (140-199); Estimated Glomerular Filt Rate 55 mL/min (>60); Globulin 2.8 g/dL (1.7-4.1); Glucose 93 mg/dL (80-110); HDL Cholesterol 90 mg/dL (40-60); HEMOLYSIS 15 (0-50); LDL Cholesterol Calculated 71 mg/dL (<100); Magnesium 1.9 mg/dL (1.6-2.3); Potassium 4.9 mmol/L (3.4-5.1); Sodium 132 mmol/L (137-145); Total Protein 7.3 g/dL (6.3-8.2); Triglycerides 210 mg/dL (35-150)
[2024-02-24 09:50] LABS: TSH w/ Reflex to FT4 1.36 uIU/mL (0.47-4.68)
== END ==
LOC: LAB 07:24
PROVIDERS: Family Provider Family Medicine; PCP Family Medicine; Referring Provider Internal Medicine Cardiovascular Disease; Visit Provider Internal Medicine Cardiovascular Disease
DX: I10 Essential (primary) hypertension (principal); Z13.1 Encounter for screening for diabetes mellitus; E78.5 Hyperlipidemia, unspecified; I48.0 Paroxysmal atrial fibrillation
CPT/HCPCS: 36415; 80053; 80061; 83036; 83735; 84443; 85025

== ENCOUNTER → 2024-09-02 07:23 | Outpatient (CLI) | payer MEDICARE, BC, SELFPAY ==
[2022-10-24 17:22] VITALS: BMI 25.7
[2024-09-02 08:27] LABS: Hemoglobin A1C% w Est Avg Glu 4.9 % (4.0-6.0)
[2024-09-02 08:31] LABS: Add Manual Diff / Slide Review NO; Basophils Absolute Auto 100 /uL (0-100); Basophils Percent Auto 1.2 % (0-2); Eosinophils Absolute Auto 100 /uL (0-450); Hematocrit 32.8 % (36-46); Hemoglobin 11.3 g/dL (12.0-16.0); Lymphocytes Absolute Auto 1900 /uL (1100-4500); Lymphocytes Percent Auto 41.5 % (25-40); Mean Corpuscular HGB Conc 34.3 % (30-36); Mean Corpuscular Hemoglobin 33.8 PG (26-34); Mean Corpuscular Volume 98.4 fL (80-100); Monocytes Absolute Auto 400 /uL (0-900); Monocytes Percent Auto 9.4 % (3-14); Neutrophils Absolute Auto 2100 /uL (1500-7000); Neutrophils Percent Auto 44.9 % (50-75); Platelet Count 347 X10^3/uL (150-400); Red Blood Cell Count 3.33 X10^6/uL (4.0-5.2); Red Cell Distribution Width 12.4 % (11.6-14.8); White Blood Cell Count 4.7 X10^3/uL (4.5-11.0)
[2024-09-02 08:42] LABS: Alanine Aminotransferase 18 IU/L (<35); Albumin 4.6 g/dL (3.5-5.0); Albumin Globulin Ratio 1.9 (1.0-2.8); Alkaline Phosphatase 52 U/L (38-126); Aspartate Aminotransferase 26 IU/L (14-36); BUN Creatinine Ratio 24.8 (6-22); Bilirubin Total 0.7 mg/dL (0.2-1.3); Blood Urea Nitrogen 25 mg/dL (7-17); Calcium 9.8 mg/dL (8.4-10.2); Carbon Dioxide 23 mmol/L (22-32); Chloride 98 mmol/L (98-107); Cholesterol 175 mg/dL (140-199); Estimated Glomerular Filt Rate 57 mL/min (>60); Globulin 2.4 g/dL (1.7-4.1); Glucose 94 mg/dL (80-110); HDL Cholesterol 78 mg/dL (40-60); HEMOLYSIS < 15 (0-50); LDL Cholesterol Calculated 72 mg/dL (<100); Magnesium 1.9 mg/dL (1.6-2.3); Potassium 5.5 mmol/L (3.4-5.1); Sodium 131 mmol/L (137-145); Triglycerides 127 mg/dL (35-150)
[2024-09-02 09:00] LABS: Free T4, Direct Thyroxine 0.83 ng/dL (0.78-2.19)
[2024-09-02 09:14] LABS: Thyroid Stimulating Hormone 1.73 uIU/mL (0.47-4.68)
== END ==
PROVIDERS: Family Provider Family Medicine; PCP Family Medicine; Referring Provider Internal Medicine Cardiovascular Disease; Visit Provider Internal Medicine Cardiovascular Disease
DX: E78.5 Hyperlipidemia, unspecified (principal); Z13.1 Encounter for screening for diabetes mellitus; I48.0 Paroxysmal atrial fibrillation; I10 Essential (primary) hypertension
CPT/HCPCS: 36415; 80053; 80061; 83036; 83735; 84439; 84443; 85025

== ENCOUNTER → 2024-09-29 11:35 | Outpatient (CLI) | payer MEDICARE, BC, SELFPAY ==
[2022-10-24 17:22] VITALS: BMI 25.7
[2024-09-29 12:43] LABS: BUN Creatinine Ratio 19.8 (6-22); Blood Urea Nitrogen 22 mg/dL (7-17); Calcium 10.1 mg/dL (8.4-10.2); Carbon Dioxide 26 mmol/L (22-32); Chloride 95 mmol/L (98-107); Estimated Glomerular Filt Rate 51 mL/min (>60); Glucose 83 mg/dL (80-110); HEMOLYSIS < 15 (0-50); Sodium 131 mmol/L (137-145)
[2024-09-29 12:46] LABS: Potassium 5.6 mmol/L (3.4-5.1)
== END ==
PROVIDERS: Family Provider Family Medicine; PCP Family Medicine; Referring Provider Internal Medicine Cardiovascular Disease; Visit Provider Internal Medicine Cardiovascular Disease
DX: I10 Essential (primary) hypertension (principal); Z68.28 Body mass index [BMI] 28.0-28.9, adult; I44.2 Atrioventricular block, complete
CPT/HCPCS: 36415; 80048

== ENCOUNTER → 2024-11-30 15:54 | Outpatient (CLI) | payer MEDICARE, BC, SELFPAY ==
[2022-10-24 17:22] VITALS: BMI 25.7
--- NOTE | 2024-11-30 15:56 | DI.RAD.S_ITS ---
PROCEDURE: XR HIP W PEL IF DONE BILAT 2V INDICATIONS: worsening hip pain TECHNIQUE: AP pelvis with lateral view(s) of the right hip(s). COMPARISON: [facility], CR, XR HIP W PEL IF DONE RT 2V, 11/26/2022, 14:19. FINDINGS: Bones: There are no osseous abnormalities. SI and hip joints: Normal in width and alignment without arthritic change. Severe L3-4 through L5-S1 degenerative disc disease Soft tissues: Vague increased soft tissue density seen in the central pelvis superior to the urinary bladder. IMPRESSION: Possible enlarged uterus or mass in the supravesical region of the central pelvis. Suggest ultrasound or CT. . Severe L3-4 through L5-S1 degenerative disc disease Dictated by: Edwin Umanzor M.D. on 12/01/2024 at 11:58 Approved by: Edwin Umanzor M.D. on 12/01/2024 at 12:00
[2024-11-30 16:43] LABS: Add Manual Diff / Slide Review NO; Basophils Absolute Auto 100 /uL (0-100); Basophils Percent Auto 1.2 % (0-2); Eosinophils Absolute Auto 300 /uL (0-450); Eosinophils Percent Auto 4.6 % (2-4); Hematocrit 35.2 % (36-46); Lymphocytes Absolute Auto 2100 /uL (1100-4500); Lymphocytes Percent Auto 33.1 % (25-40); Mean Corpuscular HGB Conc 34.1 % (30-36); Mean Corpuscular Hemoglobin 33.8 PG (26-34); Mean Corpuscular Volume 99.2 fL (80-100); Monocytes Absolute Auto 700 /uL (0-900); Monocytes Percent Auto 10.8 % (3-14); Neutrophils Absolute Auto 3300 /uL (1500-7000); Neutrophils Percent Auto 50.3 % (50-75); Platelet Count 318 X10^3/uL (150-400); Red Blood Cell Count 3.55 X10^6/uL (4.0-5.2); Red Cell Distribution Width 12.4 % (11.6-14.8); White Blood Cell Count 6.5 X10^3/uL (4.5-11.0)
[2024-11-30 17:41] LABS: Alanine Aminotransferase 19 IU/L (<35); Albumin 4.8 g/dL (3.5-5.0); Albumin Globulin Ratio 1.8 (1.0-2.8); Alkaline Phosphatase 57 U/L (38-126); Aspartate Aminotransferase 45 IU/L (14-36); Bilirubin Total 0.4 mg/dL (0.2-1.3); Blood Urea Nitrogen 21 mg/dL (7-17); Calcium 9.8 mg/dL (8.4-10.2); Carbon Dioxide 27 mmol/L (22-32); Chloride 97 mmol/L (98-107); Estimated Glomerular Filt Rate > 60 mL/min (>60); Globulin 2.6 g/dL (1.7-4.1); Glucose 98 mg/dL (70-99); HEMOLYSIS < 15 (0-50); Potassium 4.4 mmol/L (3.4-5.1); Sodium 132 mmol/L (137-145); Total Protein 7.4 g/dL (6.3-8.2)
[2024-11-30 17:56] LABS: HEMOLYSIS < 15 (0-50); Iron 102 ug/dL (37-170)
[2024-11-30 17:57] LABS: Vitamin D 25 Hydroxy (D3) 92.3 ng/mL (30.0-100.0)
[2024-11-30 18:02] LABS: Percent Iron Saturation 30 % (15-50); Total Iron Binding Capacity 337 ug/dL (265-497); Transferrin 295 mg/dL (206-381)
[2024-11-30 18:46] LABS: Vitamin B12 291 pg/mL (239-931)
== END ==
PROVIDERS: Family Provider Family Medicine; PCP Family Medicine; Referring Provider Family Medicine; Visit Provider Family Medicine
DX: M51.369 Other intervertebral disc degeneration, lumbar region without mention of lumbar back pain or lower extremity pain (principal); M51.379 Other intervertebral disc degeneration, lumbosacral region without mention of lumbar back pain or lower extremity pain; M85.89 Other specified disorders of bone density and structure, multiple sites; I10 Essential (primary) hypertension; D64.9 Anemia, unspecified; M25.551 Pain in right hip; M25.552 Pain in left hip
CPT/HCPCS: 36415; 73521; 80053; 82306; 82607; 83540; 83550; 85025

== ENCOUNTER → 2024-12-03 12:58 | Outpatient (CLI) | payer MEDICARE, BC, SELFPAY ==
[2022-10-24 17:22] VITALS: BMI 25.7
--- NOTE | 2024-12-03 12:59 | DI.CT.S_ITS ---
PROCEDURE: CT PELVIS W CON INDICATIONS: evaluate enlarged uterus TECHNIQUE: After the administration of intravenous contrast, 5 mm thick sections acquired from the iliac crests to the symphysis. 5 mm coronal and sagittal reformats were acquired. For radiation dose reduction, the following was used: automated exposure control, adjustment of mA and/or kV according to patient size. COMPARISON: None. FINDINGS: Image quality: Diagnostic. PELVIS: Peritoneum and Bowel: Small and large bowel loops appear normal. Ingested material distending the stomach. Normal appendix. Pelvic Organs: The uterus is normal in size for patient's age measuring 5.0 x 2.5 x 4.9 cm. Residual ovarian tissue is seen, within normal limits. No suspicious cyst or solid adnexal mass. Bladder: Normal wall thickness, accounting for underdistension. No perivesicular fat stranding. No stones. Pelvic Nodes: No enlarged lymph nodes. Miscellaneous: Very small, fat containing bilateral femoral hernias Bones: No aggressive osseous abnormality. Severe disc degeneration in the visible lower lumbar spine. IMPRESSION: Normal size uterus for patient's age. No suspicious adnexal or pelvic mass. Incidental note of very small, fat containing bilateral femoral hernias. Dictated by: Abigail Oleary M.D. on 12/03/2024 at 22:30 Approved by: Abigail Oleary M.D. on 12/03/2024 at 22:38
== END ==
PROVIDERS: Family Provider Family Medicine; PCP Family Medicine; Referring Provider Family Medicine; Visit Provider Family Medicine
DX: N85.2 Hypertrophy of uterus (principal); K41.20 Bilateral femoral hernia, without obstruction or gangrene, not specified as recurrent; M51.369 Other intervertebral disc degeneration, lumbar region without mention of lumbar back pain or lower extremity pain
CPT/HCPCS: 72193; Q9967

== ENCOUNTER → 2025-02-25 09:46 | Outpatient (CLI) | payer MEDICARE, BC, SELFPAY ==
[2022-10-24 17:22] VITALS: BMI 25.7
--- NOTE | 2025-02-25 09:50 | DI.CT.S_ITS ---
PROCEDURE: CT LUMBAR SPINE WO CON INDICATIONS: chronic and progressive lower back pain TECHNIQUE: Noncontrast 3 mm thick sections acquired from the T12 level to the sacrum. Sagittal and coronal reformats were constructed. For radiation dose reduction, the following was used: automated exposure control. COMPARISON: None. FINDINGS: Image quality: Excellent. Bones: Straightening of the usual lumbar lordosis. Mild, grade 1, anterolisthesis of L5 on S1. No suspicious lytic or blastic osseous lesion. Diffuse osseous demineralization. T12-L1: Normal appearance L1-L2: No bony spinal canal or neural foraminal stenosis. Mildly degenerated, diffusely bulging disc. No spinal canal or neural foraminal stenosis. L2-L3: Mild spinal canal stenosis due to symmetric disc bulge and facet arthrosis. No neural foraminal stenosis. L3-L4: Mild spinal canal stenosis due to disc height loss, small posterior should osteophytosis, superimposed, symmetric bulging disc, and facet arthrosis. Moderate left neural foraminal stenosis due to facet arthrosis and subarticular disc bulge and osteophytosis. No right neural foraminal stenosis. L4-L5: Moderate spinal canal stenosis due to symmetric disc bulge, ligamentum flavum thickening, and facet arthrosis. Right moderate to severe and left moderate neural foraminal stenosis due to subarticular disc bulge and facet arthrosis. L5-S1: Mild spinal canal stenosis due to anterolisthesis disc uncovering and facet arthrosis. Mild bilateral neural foraminal stenosis due to anterolisthesis disc uncovering and facet arthrosis. Soft tissues: No retroperitoneal masses or hematomas. Visualized aorta is normal in caliber. IMPRESSION: 1. Multilevel spinal canal stenosis reaches moderate at L4-5. 2. Multilevel neural foraminal stenosis is greatest on the right at L4-5 region moderate to severe. Otherwise as detailed above. 3. Mild, grade 1, anterolisthesis of L5 on S1. Dictated by: Ricardo Galvez M.D. on 02/25/2025 at 11:45 Approved by: Ricardo Galvez M.D. on 02/25/2025 at 11:50
== END ==
LOC: CT 09:50
PROVIDERS: Family Provider Family Medicine; PCP Family Medicine; Referring Provider Family Medicine; Visit Provider Family Medicine
DX: M48.061 Spinal stenosis, lumbar region without neurogenic claudication (principal); M48.07 Spinal stenosis, lumbosacral region; M43.17 Spondylolisthesis, lumbosacral region; M54.50 Low back pain, unspecified; G89.29 Other chronic pain
CPT/HCPCS: 72131

== ENCOUNTER → 2025-04-19 14:52 | Outpatient (CLI) | payer MEDICARE, BC, SELFPAY ==
[2022-10-24 17:22] VITALS: BMI 25.7
[2025-04-19 16:13] LABS: Blood Urea Nitrogen 16 mg/dL (7-17); Calcium 9.8 mg/dL (8.4-10.2); Carbon Dioxide 25 mmol/L (22-32); Chloride 97 mmol/L (98-107); Estimated Glomerular Filt Rate > 60 mL/min (>60); Glucose 100 mg/dL (70-99); HEMOLYSIS < 15 (0-50); Potassium 4.3 mmol/L (3.4-5.1); Sodium 131 mmol/L (137-145)
== END ==
PROVIDERS: Family Provider Family Medicine; PCP Family Medicine; Referring Provider Family Medicine; Visit Provider Internal Medicine Cardiovascular Disease
DX: I10 Essential (primary) hypertension (principal); I44.2 Atrioventricular block, complete; Z68.28 Body mass index [BMI] 28.0-28.9, adult
CPT/HCPCS: 36415; 80048

== ENCOUNTER → 2025-05-14 12:25 | Outpatient (CLI) | payer MEDICARE, BC, SELFPAY ==
[2022-10-24 17:22] VITALS: BMI 25.7
--- NOTE | 2025-05-14 12:26 | DI.ECHO.S_ITS ---
[facility] : : [address] : : [place] : : [id number] : : Phone: [phone] Echocardiogram Report + + :Name: APOLINAR GUILLAUME Study Date: 05/14/2025 Height: 63 in : :[facility] ReadingLocation: Weight: 150 lb : : Gender: Female BSA: 1.7 m2 : :: 1945 Age: 80 yrs BP: 136/80 mmHg: :Reason For Study: Aortic valve replacement - bioprosthetic : :Ordering Physician: RENATA, : :LILIA Cain Performed By: Amie Champion : :Referring: LILIA AMEZCUA : + + Interpretation Summary The study quality was technically limited. Apical hypokinesis may be due to pacing. Diastolic function is indeterminate. The left atrium is severely dilated. The right ventricle is normal in size and function. The right atrium is mildly dilated. There is mild to moderate mitral regurgitation. There is a well-seated, normal functioning bioprosthetic aortic valve. There is moderate tricuspid regurgitation. The right ventricular systolic pressure is estimated to be at least 30 mmHg based on an estimated right atrial pressure of 3 mm Hg. Comparison is made with the echocardiogram of 04/15/2023, no significant change. Procedure: A two-dimensional transthoracic echocardiogram with color flow and Doppler was performed. The study quality was technically limited. Comparison is made with the echocardiogram of 04-15-23. The heart rate ranged between 60-64 bpm during the study. Left Ventricle: The left ventricle is normal in size and wall thickness. The ejection fraction is estimated to be 55-60%. Apical hypokinesis may be due to pacing. Diastolic function is indeterminate. Right Ventricle: There is a pacemaker lead in the right ventricle. The right ventricle is normal in size and function. Atria: The left atrium is severely dilated. The right atrium is mildly dilated. There is a catheter/pacemaker lead seen in the right atrium. The interatrial septum grossly appears intact with no obvious evidence for an atrial septal defect. Mitral Valve: The mitral valve leaflets appear moderately thickened. The mitral valve leaflets are moderately calcified. There is mild to moderate mitral regurgitation. Aortic Valve: There is a bioprosthetic aortic valve. The prosthetic aortic valve is well-seated. The peak aortic velocity is 1.8 m/sec. The aortic valve mean gradient is 7.8 mmHg. No aortic regurgitation is present. Tricuspid Valve: The tricuspid valve leaflets are thin and pliable. There is moderate tricuspid regurgitation. The right ventricular systolic pressure is estimated to be at least 30 mmHg based on an estimated right atrial pressure of 3 mm Hg. Pulmonic Valve: The pulmonic valve is not well visualized. Great Vessels: The aortic root is normal size. The ascending aorta is at the upper limits of normal in size. The aortic arch is at the upper limits of normal in size. The IVC is of normal diameter and collapses greater than 50% with a sniff. This suggests a low right atrial pressure of 3 mm Hg. Pericardium/ Pleura There is no pericardial effusion. There is no pleural effusion. MMode/2D Measurements & Calculations LVIDd: 4.3 cm LVOT diam: 2.1 cm LVIDs: 2.7 cm Ao root diam: 3.5 cm FS: 36.4 % asc Aorta Diam: 3.9 cm IVSd: 0.68 cm Ao Arch Diam (Prox Trans): 3.1 cm LVPWd: 0.69 cm LV forman. diameter/BSA (cm/m^2): 2.5 LV sys. diameter/BSA (cm/m^2): 1.6 LA A2 area: 29.5 cm2 RA long axis: 5.5 cm LA A4 area: 25.9 cm2 RA area: 20.4 cm2 LA length (vol): 6.4 cm RA vol: 64.0 ml LA vol: 101.5 ml RA : 37.4 ml/m2 LA vol index: 59.3 ml/m2 IVC diam: 1.4 cm RVD1 (basal): 2.4 cm TAPSE: 1.5 cm Doppler Measurements & Calculations Ao V2 max: 182.0 cm/sec LVOT Max Kashif: 71.9 cm/sec Ao V2 mean: 132.9 cm/sec LV V1 max P.1 mmHg Ao max P.3 mmHg LV V1 VTI: 18.6 cm Ao mean P.8 mmHg MARU(I,D): 1.5 cm2 Ao V2 VTI: 42.7 cm MARU(V,D): 1.4 cm2 sev ratio: 0.44 MARU indexed to BSA (cm^2/m^2): 0.90 MV E max kashif: 119.6 cm/sec TR max kashif: 260.8 cm/sec MV A max kashif: 139.0 cm/sec TR max P.2 mmHg MV E/A: 0.86 PA V2 max: 67.1 cm/sec MV dec time: 0.52 sec PA V2 mean: 41.3 cm/sec PA mean P.80 mmHg PA pr(Accel): 12.2 mmHg MR VTI: 245.4 cm SV(LVOT): 66.0 ml Reading Physician:01:45 PM
== END ==
LOC: ECHO 12:26
PROVIDERS: Family Provider Family Medicine; PCP Family Medicine; Referring Provider Internal Medicine Cardiovascular Disease; Visit Provider Internal Medicine Cardiovascular Disease
DX: I08.1 Rheumatic disorders of both mitral and tricuspid valves (principal); I71.21 Aneurysm of the ascending aorta, without rupture; Z95.2 Presence of prosthetic heart valve
CPT/HCPCS: 93306